=== PATIENT | female | born 1960 | race Caucasian/White ===

== ENCOUNTER → 2019-09-30 | Outpatient (CLI) | payer MEDICARE ==
--- NOTE | 2019-09-30 15:14 | CTL ---
EXAMINATION TYPE: CT Low Dose Lung DATE OF EXAM ORDERED: 09/30/2019 HISTORY: 59-year-old female with personal history of tobacco use. Lung cancer screening CT DLP: 98.[address] CTDI: 2.8 mGy Automated exposure control for dose reduction was used. SCREENING VISIT: Baseline COMPARISON: No priors TECHNIQUE: Low dose computed tomography scan was performed through the chest at 1 mm thick sections a nd reconstructed images in the coronal and sagittal plane. CT DIAGNOSTIC QUALITY: Satisfactory FINDINGS: Heart normal size without pericardial effusion. Scattered mild coronary vessel calcifications are pre sent. Aorta normal caliber with conventional arch vessel branching anatomy and mild apical scarring calcifi cations at the great vessel origins. No thoracic lymphadenopathy by CT size criteria. Mild centrilobular emphysema. A number of scattered 5 mm and smaller pulmonary nodules right upper lobe, some of which demonstrate a groundglass appearance, refer to axial image 53, 71, 75, 78, and 95. The 5 mm nodule on axial image 95 has a somewhat spiculated appearance. 7 mm triangular pulmonary nodule along the minor fissure likely intrafissural lymph node. Small subpleural lipoma anteriorly at the left mid to lower thorax. No consolidation or pleural effusion. Visualized upper abdomen shows cholecystectomy clips. Bones: [id number] degenerative disc disease mid to lower thoracic spine with small posterior di sc protrusions. IMPRESSION: 1. BI-RADS 4 X, suspicious - 5 mm and smaller right upper lobe pulmonary nodules, a number of which h ave a groundglass appearance. Given that a 5 mm pulmonary nodule in the right midlung has a slightly spiculated appearance, follow-up in 3 months is recommended. 2. A 7 mm intrafissural lymph node on the right is a benign finding. 3. COPD with mild emphysema. RECOMMENDATION: 1. Three-month follow-up low dose CT chest. 2. Smoking cessation. FOLLOW UP CT CHEST RECOMMENDATION: 3 month follow-up low-dose CT chest CT LUNG RAD: 4X, suspicious
== END | disposition home or self-care (01) ==
LOC: RADCTMAIN 13:14
PROVIDERS: ATTEND Family Medicine
DX: Z12.2 Encounter for screening for malignant neoplasm of respiratory organs (principal); J43.9 Emphysema, unspecified; R91.1 Solitary pulmonary nodule; R59.9 Enlarged lymph nodes, unspecified; F17.210 Nicotine dependence, cigarettes, uncomplicated

== ENCOUNTER → 2020-04-21 | Outpatient (CLI) | payer MEDICARE ==
--- NOTE | 2020-04-21 10:57 | CT ---
EXAMINATION TYPE: CT chest w con DATE OF EXAM: 04/21/2020 COMPARISON: Low-dose CT dated 09/30/2019 HISTORY: Follow up scan Per patient. CT DLP: 277 mGycm. Automated Exposure Control for Dose Reduction was Utilized. TECHNIQUE: CT scan of the thorax is performed following with IV Contrast, patient injected with 100 mL of Isovue 300. FINDINGS: LUNGS: Few of the previously seen groundglass sub-5 mm nodules have resolved in the interim suggestin g an infectious or inflammatory etiology of those nodules. However few nodules to persist such as on image 14, 18, and more solid nodules on image 23 and 22. The largest nodule on image 22 in the right upper lobe anteriorly measures 5 mm and is stable from the prior. Again this nodule does demonstrate a somewhat spiculated morphology. Mild background centrilobular emphysematous change. Subpleural 2 mm left basilar pulmonary nodule on image 49 is retrospectively unchanged. There is no pleural effusion or pneumothorax seen. Scattered a reas of subsegmental atelectasis seen. The tracheobronchial tree is patent. Decreased size of an intr afissural lymph node or scarring on image 31. Unchanged subpleural lipoma anteriorly at the left lowe r thorax. MEDIASTINUM: There are no greater than 1 cm hilar or mediastinal lymph nodes. Mild coronary artery ca lcifications. No pericardial effusion is seen. OTHER: No additional significant abnormality is seen. Gallbladder is surgically absent. Mild to mode rate degenerative disc disease of the spine. Mild degree hepatic steatosis. This limits evaluation fo r hepatic masses. The entirety of the liver is not imaged. Left adrenal gland nodule although is low density does not meet criteria for benign adenoma on this examination measuring an average Hounsfield unit of 42. This is 1 cm in size. IMPRESSION: 1. Stable size of the largest and most solid right pulmonary nodules measuring up to 5 mm in comparis on to the exam of 09/30/2019. Some nodules have resolved indicating an inflammatory or infectious etio logy of those nodules. The largest nodule does remain somewhat suspicious as there is a spiculated mo rphology. Follow-up CT thorax in 12 months is recommended to ensure long-term stability. 2. Left adrenal gland nodule that does not meet criteria for a benign adenoma at this time. Dynamic e nhanced MR abdomen is recommended for further characterization.
== END | disposition home or self-care (01) ==
LOC: RADCTMAIN 09:50
PROVIDERS: ATTEND Internal Medicine
DX: R91.8 Other nonspecific abnormal finding of lung field (principal)
CPT/HCPCS: 71260; Q9967

== ENCOUNTER → 2022-08-03 | Outpatient (CLI) | payer MEDICARE ==
--- NOTE | 2022-08-05 06:58 | MR ---
EXAMINATION TYPE: MR lumbar spine wo con DATE OF EXAM: 08/03/2022 COMPARISON: None HISTORY: Back pain leg weakness FINDINGS: Multiplanar multi echo imaging of the lumbar spine with no contrast. Lumbar vertebrae have normal alignment. There is mild disc space narrowing throughout the lumbar spin e. On the T2 and T1 images there is abnormal decreased signal in the L3 vertebral body. No significan t compression fracture. The lumbar nerve roots appear fairly normal. No significant neural foraminal stenosis. Sacroiliac joints are intact. No lumbar paraspinal mass. There is a Schmorl node in the sup erior endplate of L3. IMPRESSION: Decreased signal in the L3 vertebral body. This could relate to osteoblastic change. Correlation with plain x-ray recommended. No acute fracture seen. Mild multilevel spondylotic changes.
== END | disposition home or self-care (01) ==
LOC: RADMRIMAIN 09:03
PROVIDERS: ATTEND Family Medicine
DX: M54.50 Low back pain, unspecified (principal)
CPT/HCPCS: 72148

== ENCOUNTER → 2023-02-23 | Outpatient (CLI) | payer MEDICARE ==
--- NOTE | 2023-02-23 12:46 | BD ---
EXAMINATION TYPE: Axial Bone Density DATE OF EXAM: 02/23/2023 CLINICAL HISTORY: 63 years old Female. ICD-10 CODE: Z13.820 OSTEOPOROSIS SCREENING Height: 66.2 Weight: 165 FRAX RISK QUESTIONS: History of Fracture in Adulthood: yes Current Tobacco Use: yes RISK FACTORS HISTORY OF: hx of spinal compression fx L3 Spine Fracture: helcoplasty, for L3 When: 2022 Surgery to Spine helcoplasty, L3 Postmenopausal woman: yes, at about 52 Hyperparathyroidism: no Adrenal Insufficiency: no MEDICATIONS: Additional Medications: bp meds, vit d, pain meds Additional History: hypertension, recent spinal surg. EXAM MEASUREMENTS: Bone mineral densitometry was performed using the [employer] System. Bone mineral density about the R hip (g/cm2): 0.807 Bone mineral density about the L hip (g/cm2): 0.831 T Score values are as follows: -----R Neck: -1.2 -----L Neck: -1.0 -----R Total: -1.6 -----L Total: -1.4 Z Score values are as follows: -----R Neck: 0.0 -----L Neck: 0.2 -----R Total: -0.8 -----L Total: -0.6 Bone mineral density new to [facility] Bone mineral density about the R Wrist (g/cm2): 0.604 T Score values are as follows: -----Dist. R+U: -0.6 -----Prox. R+U: 0.5 -----Radius total: -0.9 Z Score values are as follows: -----Dist. R+U: 0.6 -----Prox. R+U: 1.7 -----Radius total: 0.2 Bone mineral density new to [facility] FRAX%s: The graph provided illustrates a 13.3% chance for a major osteoporotic fx and a 1.7% chance f or the hips probability for fx in 10 years time. IMPRESSION: Osteopenia (T Score between -2.5 and -1). There is slightly increased risk of fracture and the patient may be considered for treatment. Re-Screen 2-5 years. NOTE: T-SCORE=SD OF THE YOUNG ADULT MEAN.
== END | disposition home or self-care (01) ==
LOC: RADBDWWP 09:17
PROVIDERS: ATTEND Family Medicine
DX: Z13.820 Encounter for screening for osteoporosis (principal); M85.89 Other specified disorders of bone density and structure, multiple sites; I10 Essential (primary) hypertension; Z78.0 Asymptomatic menopausal state
CPT/HCPCS: 77080

== ENCOUNTER → 2023-07-28 | Outpatient (CLI) | payer MEDICARE ==
--- NOTE | 2023-07-28 13:34 | CTL ---
EXAMINATION TYPE: CT Low Dose Lung DATE OF EXAM ORDERED: 07/28/2023 HISTORY: 63-year-old female F17.210, current cigarette smoker for 20 pack year history. Lung cancer s creening SCREENING VISIT: 4 years from last screening COMPARISON: 04/21/2020 and 09/30/2019 TECHNIQUE: Low dose computed tomography scan was performed through the chest with coronal and sagitta l reconstructions. CT DIAGNOSTIC QUALITY: Satisfactory FINDINGS: Heart normal size without pericardial effusion. Aorta normal caliber with conventional arthrosis of branching anatomy. No thoracic lymphadenopathy by CT size criteria. There is a new 5 mm anterior right midlung pulmonary nodule, axial image 170. There is a new 1.1 cm pulmonary nodule anterior right upper lobe. Otherwise, scattered 5 mm and smaller pulmonary nodules remain unchanged from 2019 There is mild centrilobular emphysema. No consolidation or pleural effusion. Visualized upper abdomen shows cholecystectomy clips and a 1.6 cm lipid rich left adrenal adenoma. Mild degenerative disc disease lower thoracic spine. IMPRESSION: 1. LungRADS Category 4A (suspicious, 5-15% chance of malignancy). A new 1.1 cm anterior right upper l obe pulmonary nodule. Additionally, there is a new 5 mm anterior right midlung pulmonary nodule. Depe nding on clinical suspicion especially for the 1.1 cm nodule, either further PET/CT evaluation or 3 m onth follow-up low dose CT. 2. COPD with mild emphysema. Recommend smoking cessation. 3. Incidental 1.6 cm lipid rich left adrenal adenoma. CT LUNG RAD AND CT CHEST RECOMMENDATION: Lung-Rad 4A Suspicious: Follow-up 3 month LDCT or PET/CT may be used when there is a > 8 mm solid component. S Modifier (other clinically significant findings): None
== END | disposition home or self-care (01) ==
LOC: RADCTMAIN 09:09
PROVIDERS: ATTEND Family Medicine
DX: Z12.2 Encounter for screening for malignant neoplasm of respiratory organs (principal); J43.2 Centrilobular emphysema; F17.210 Nicotine dependence, cigarettes, uncomplicated; R91.1 Solitary pulmonary nodule; D35.02 Benign neoplasm of left adrenal gland
CPT/HCPCS: 71271

== ENCOUNTER → 2023-09-22 | Outpatient (CLI) | payer MEDICARE ==
--- NOTE | 2023-09-22 15:10 | PE ---
EXAMINATION TYPE: PET CT fusion skull to thigh DATE OF EXAM: 09/22/2023 COMPARISON: Low-dose lung screening CT July 28, 2023 HISTORY: Solitary pulmonary nodule, abnormal CT TECHNIQUE: Following the intravenous administration of 9.7 mCi of F-18 FDG, whole body images are pe rformed from the skull base to the midthigh. Images are reviewed on the computer in the coronal, axi al, and sagittal planes. Reconstructed rotating images are created on independent workstation and re viewed on the computer. A localization and attenuation correction CT is performed in conjunction wi th the PET scan. Blood glucose level equals 116. SCAN: Initial Scan FINDINGS: SKULL BASE AND NECK: No areas of abnormal hypermetabolic uptake. CHEST, MEDIASTINUM, AND HILAR REGION: Corresponding to recent CT there is persistent 12 x 11 mm anter ior right upper lobe nodule with abnormal hypermetabolic uptake, max SUV is 10.85 on axial image 89. Adjacent 5 mm nodule is seen medially axial image 91. No additional areas of abnormal hypermetabolic uptake are present in the thorax. ABDOMEN AND PELVIS: No hypermetabolic adrenal masses. Normal excretion is seen. OSSEOUS STRUCTURES: No areas of abnormal hypermetabolic uptake. OTHER CT: Moderate calcified plaque bilateral carotid bulb level is seen. Coronary artery calcificati on is noted. Cholecystectomy clips are seen. Moderate calcified plaque of the aorta extends into branch vessels. T here is mild height loss and vertebroplasty involving the L3 vertebra. IMPRESSION: 1. Persistent 1.2 cm anterior right upper lung pulmonary nodule with abnormal hypermetabolic uptake w orrisome for neoplasm. No suspicious thoracic adenopathy or evidence for metastatic disease.
== END | disposition home or self-care (01) ==
LOC: RADPETMAIN 09:53
PROVIDERS: ATTEND Internal Medicine Critical Care Medicine
DX: R91.1 Solitary pulmonary nodule (principal)
CPT/HCPCS: 78815; A9552

== ENCOUNTER 2023-09-28 06:35 | Inpatient (IN) | payer MEDICARE ==
[2023-09-27 10:10] VITALS: BMI 23.7
[2023-09-28] MEDS ORDERED: ONDANSETRON 4 MG/2 ML VIAL ONE (07:16)
[2023-09-28] MEDS: LACTATED RINGERS 1,000 ML IV SCH (07:32)
[2023-09-28] MEDS ORDERED: ONDANSETRON 4 MG/2 ML VIAL IVP ONE (07:32)
[2023-09-28] MEDS ORDERED: DEXAMETHASONE SOD PHOSPHATE 4 MG/ML 1 ML VIAL IVP ONE (07:33)
--- NOTE | 2023-09-28 07:51 | CT ---
EXAMINATION TYPE: CT chest wo con CT DLP: 495 mGycm, Automated exposure control for dose reduction was used. DATE OF EXAM: 09/28/2023 7:15 AM COMPARISON: Pet/CT 09/22/2023 CLINICAL INDICATION:Female, 63 years old with history of R91.1 Solitary Pulmonary Nodule; , pre bronc h TECHNIQUE: Multiple axial images were obtained through the chest. Sagittal and coronal reformats were created for review. Contrast used: mL of (None if empty) Oral contrast used: (None if empty) FINDINGS: LUNGS/ PLEURA: Redemonstration of spiculated right upper anterior lobe pulmonary nodule measuring up to 1.2 cm. AIRWAY: Patent and unremarkable. HEART: Size within normal limits. Mild atherosclerotic ossifications of the coronary arteries. MEDIASTINUM: No gross evidence of adenopathy. VASCULATURE: No aortic aneurysm. MUSCULOSKELETAL: No acute osseous abnormalities SOFT TISSUES/LYMPH NODES: Unremarkable. LOWER NECK: No significant findings. UPPER ABDOMEN: The gallbladder is surgically absent. Left adrenal lipid rich adenoma. IMPRESSION: 1. Redemonstration of right upper lobe spiculated pulmonary nodule which is FDG avid on prior PET/CT . 2. No FDG avid/enlarged mediastinal lymph nodes identified.
[2023-09-28] MEDS ORDERED: GLYCOPYRROLATE 0.2 MG/ML 2 ML VIAL ONE (08:20)
[2023-09-28] MEDS ORDERED: ROCURONIUM 10 MG/ML (5 ML VIAL) IV ONE (08:20)
[2023-09-28] MEDS ORDERED: PROPOFOL 10 MG/ML 20 ML VIAL IV ONE (08:20)
[2023-09-28] MEDS ORDERED: LIDOCAINE 1% INJ 10MG/ML (20 ML MDV) ONE (08:20)
[2023-09-28] MEDS ORDERED: MIDAZOLAM 2 MG/2 ML VIAL ONE (08:20)
[2023-09-28] MEDS ORDERED: NEOSTIGMINE 1 MG/ML 10 ML VIAL ONE (08:20)
[2023-09-28] MEDS ORDERED: fentaNYL (PF) 50 MCG/ML 2 ML AMP ONE (08:20)
[2023-09-28] MEDS ORDERED: LACTATED RINGERS 1,000 ML IV ONE (09:00)
--- NOTE | 2023-09-28 09:41 | P.PCN ---
Date of Procedure: 09/28/23 Operative Findings: Date of Procedure: 08/30/23 Operative Findings: Preoperative Diagnosis: Right upper lobe nodule Postoperative Diagnosis: Right upper lobe nodule No pathologic mediastinal lymphadenopathy on endobronchial ultrasound. Procedure(s) Performed: Flexible bronchoscopy Robotic-assisted bronchoscopy and addition to radial ultrasound evaluation of the pulmonary nodule Robotic-assisted transbronchial needle aspirate, transbronchial biopsies of the right upper lobe nodule in addition to a bronchioloalveolar lavage Endobronchial ultrasound for mediastinal lymph node evaluation Anesthesia: GETA Surgeon: Jose Luis Oconnor Estimated Blood Loss (ml): 0 Pathology: other Condition: stable Disposition: same day Operative Findings: A physical exam was performed. Informed consent was obtained from the patient after explaining all the risks (pneumothorax, life threatening bleeding, infection and adverse effects due to medications), benefits and alternatives to the procedure which the patient appeared to understand and so stated. The patient was connected to the monitoring devices. General anesthesia was induced and the patient was intubated by anesthesia. A final timeout was performed and the procedure confirmed by the attending staff bronchoscopist. The bronchoscope was inserted and the airway examined. The flexible bronchoscope was removed and the robotic bronchoscope was inserted. Registration was completed. I next guided the robotic bronchoscope using the navigation system into the right upper lobe anterior segment. Once in proper position, the bronchoscope was frozen. The radial EBUS probe was placed through the bronchoscope and confirmed abnormal u/s images vs normal lung. A needle was placed through the working channel and under fluoroscopic guidance, we sampled the area thought to have the mass twice. We then used a cloud biopsy pattern with ultrasound confirmation for 2 additional passes with the needle. U/S evaluation was then used to reconfirm location. Forceps were next introduced through working channel and extended the appropriate distance and 3 transbronchial biopsies were performed using fluoroscopic guidance. The u/s pro be was then reinserted to confirm location. When confirmed this process was repeated for a total of 8-10 transbronchial biopsies. After reassessment with EBUS, a brush was placed through the extendable working channel for 1 pass with fluoroscopic guidance. U/S evaluation was then used to confirm location. 40ml of saline was then instilled into the area of the lesion. The robotic bronchoscope was removed and the airway inspected with a flexible bronchoscope and 10 ml of effluent from the BAL was collected. The aspirate was bloody and ultimately declotted and based on that, the sample was discarded. Flex. bronchoscope was inserted and regular suctioning was done. At the completion of the procedure, no residual secretions or bloody material within the airway. The bronchoscope was removed. The patient was extubated. Endobronchial ultrasound was done with mediastinal lymph node evaluation. We did send mediastinal stations were inspected and there was no evidence of any pathologic recent lymphadenopathy and all of the lymph nodes are less than 5 mm in size. No biopsies were performed. FINDINGS: 1.The airways appeared normal 2 Successful navigation, ultrasonographic identification, and biopsies of right upper lobe pulmonary nodule 3.The the radial ultrasound view was (Concentric/Eccentric)}. RECOMMENDATIONS: Await pathology and cytology results The referring physician will be alerted to the results when available. The patient was advised to follow up with the referring physician with the biopsy results Patient will be called with results.
[2023-09-28] MEDS ORDERED: ALBUTEROL NEBULIZED 2.5 MG/3 ML INHALATION ONE ×2 (09:59→12:04)
--- NOTE | 2023-09-28 10:28 | FL ---
Intraoperative/procedural fluoroscopic services were provided for bronchoscopy with right upper lobe biopsy. Total fluoroscopy time is 3.57 minutes with a total of 4 submitted images to PACS. Total DAP 6.7926 Gycm2. Please see the operative note for further details.
--- NOTE | 2023-09-28 10:44 | XR ---
EXAMINATION TYPE: XR chest 1V DATE OF EXAM: 09/28/2023 10:23 AM CLINICAL INDICATION:Female, 63 years old with history of post biopsy; [facility] COMPARISON: Chest radiographs from 01/12/2023. TECHNIQUE: XR chest 1V Frontal view of the chest. FINDINGS: Lungs/Pleura: There is a moderate right pneumothorax with atelectasis around pulmonary hilum. There i s no evidence of pleural effusion, focal consolidation, or left pneumothorax. Pulmonary vascularity: Unremarkable. Heart/mediastinum: Cardiomediastinal silhouette is unremarkable. Musculoskeletal: No acute osseous pathology. Other findings: None IMPRESSION: Moderate right pneumothorax atelectasis near the pulmonary hilum. Findings communicated to Dr. Jose Luis Oconnor MD on 09/28/2023 10:[address] Kedar Knox.
[2023-09-28] MEDS ORDERED: HYDROmorphone 0.5 MG/0.5 ML SYRINGE IVP ONE (11:33)
--- NOTE | 2023-09-28 12:20 | XR ---
EXAMINATION TYPE: XR chest 1V portable DATE OF EXAM: 09/28/2023 12:03 PM CLINICAL INDICATION:Female, 63 years old with history of pleurx placement; COMPARISON: Chest radiographs from 09/28/2023. TECHNIQUE: XR chest 1V portable Frontal view of the chest. FINDINGS: Lungs/Pleura: There is no evidence of pleural effusion, focal consolidation, or pneumothorax. Pulmonary vascularity: Unremarkable. Heart/mediastinum: Cardiomediastinal silhouette is unremarkable. Musculoskeletal: No acute osseous pathology. Other findings: None Lines/Tubes: Right thoracotomy tube is present without evidence of pneumothorax. IMPRESSION: Interval placement of right thoracotomy tube with no without significant pneumothorax remaining.
[2023-09-28] MEDS ORDERED: HYDROcodone/APAP 10-325MG 1 EACH TAB ONE (13:37)
[2023-09-28] MEDS ORDERED: HYDROcodone/APAP 10-325MG 1 EACH TAB PO ONE (13:40)
--- NOTE | 2023-09-28 16:55 | P.PCN ---
Date of Procedure: 09/28/23 Preoperative Diagnosis: iatrogenic pneumothorax, right-sided, 25% Postoperative Diagnosis: iatrogenic pneumothorax, right-sided Procedure(s) Performed: Thoracent, #13 Anesthesia: local Surgeon: Jose Luis Oconnor Estimated Blood Loss (ml): 0 Pathology: other Condition: stable Disposition: floor Operative Findings: this procedure was done in the recovery room. The patient underwent a bronchoscopy and she sustained a 20-25% pneumothorax on the right side. She was on 2 L of oxygen by nasal cannula. This is worsening to the patient and a timeout was obtained. Consent was also obtained. The right anterior chest area was cleaned using chlorhexidine. Following that , the subcutaneous area was infiltrated with 1% lidocaine at the level of the second and the third intercostal space on the right just lateral to the sternal notch. A scalpel was used to make a small incision and following that, and #13 thoravent was successfully inserted into the right chest. The trocar was removed. A three-way valve was attached and using a 60 mL syringe, the right- sided pneumothorax was evacuated. The subsequent chest x-ray that was done following the procedure showed adequate positioning of the right-sided she'll and the pneumothorax was essentially resolved. No further suctioning was applied. No bleeding. Patient tolerated procedure well. Oxygenation improved. Pulse ox is currently above 90% on room air oxygen.
[2023-09-28] MEDS: HYDROcodone/APAP 10-325MG 1 EACH TAB PO PRN ×2 (16:59→22:59)
[2023-09-28] MEDS: HYDROmorphone 1 MG/ML 1 ML SYRINGE IVP PRN (23:46)
--- NOTE | 2023-09-28 23:54 | XR ---
EXAM: XR Chest, 1 View CLINICAL HISTORY: ITS.REASON XR Reason: severe pain/ thoravent TECHNIQUE: Frontal view of the chest. COMPARISON: Chest [place] [id number] FINDINGS: Lungs: Atelectasis within the right midlung and lingula. Pleural space: No radiographically evident pneumothorax. Heart: Unremarkable. No cardiomegaly. Other findings: Right-sided Thora vent in place. IMPRESSION: 1. No radiographically evident pneumothorax. 2. Right-sided Thora vent in place. 3. Atelectasis within the right midlung and lingula.
[2023-09-29 00:01] LABS: Glucose,Whole Blood 130 mg/dL (70-110)
[2023-09-29] MEDS ORDERED: NALOXONE 0.4 MG/ML 1 ML VIAL IV PRN (00:17)
[2023-09-29] MEDS: LACTATED RINGERS 1,000 ML IV SCH (00:58)
[2023-09-29] MEDS: HYDROmorphone 1 MG/ML 1 ML SYRINGE IVP PRN ×3 (01:59→19:38)
[2023-09-29] MEDS ORDERED: SODIUM CHLORIDE 0.9% 1,000 ML IV ONE (04:15)
--- NOTE | 2023-09-29 07:44 | XR ---
EXAMINATION TYPE: XR chest 1V DATE OF EXAM: 09/29/2023 COMPARISON: 09/28/2023 INDICATION: Tube placement TECHNIQUE: Single frontal view of the chest is obtained. FINDINGS: The heart size is normal. The pulmonary vasculature is normal. There is mild infiltrate along the right base. Correlate for atelectasis or developing pneumonia. Th ere is stable subsegmental infiltrate at the left base may be related to atelectasis. Right side catheter remains present. No pneumothorax is evident. IMPRESSION: 1. Developing atelectasis or infiltrate at the right lung base. 2. Some mild subsegmental atelectasis or infiltrate is at the left base, stable from comparison. 3. Catheter on the right, no pneumothorax is evident.
[2023-09-29] MEDS: MULTIVITAMINS, THERA 1 EACH TAB PO SCH (08:08)
[2023-09-29] MEDS: ATORVASTATIN 40 MG TAB PO SCH (08:08)
[2023-09-29] MEDS: CHOLECALCIFEROL 25 MCG (1000 IU) TABLET PO SCH (08:08)
[2023-09-29] MEDS: DULoxetine HCL 60 MG CAPSULE.DR PO SCH (08:08)
[2023-09-29 08:46] LABS: BUN/Creat Ratio 23.14 Ratio (12.00-20.00); Blood Urea Nitrogen 16.2 mg/dL (9.0-27.0); Calcium 8.6 mg/dL (8.7-10.3); Carbon Dioxide 27.1 mmol/L (21.6-31.8); Chloride 105 mmol/L (96-109); Glucose 122 mg/dL (70-110); Potassium 4.1 mmol/L (3.5-5.5); Sodium 141 mmol/L (135-145)
[2023-09-29 08:50] LABS: Basophils # (A) 0.04 X 10*3/uL (0.00-0.10); Basophils % (A) 0.3 %; Eosinophils # (A) 0.02 X 10*3/uL (0.04-0.35); Eosinophils % (A) 0.1 %; HCT 31.2 % (37.2-46.3); HGB 9.8 d/dL (12.0-15.0); Lymphocytes # (A) 2.64 X 10*3/uL (0.90-5.00); Lymphocytes % (A) 16.8 %; MCH 29.6 pg (27.0-32.0); MCHC 31.4 d/dL (32.0-37.0); MCV 94.3 FL (80.0-97.0); Mean Platelet Volume 10.1 FL (9.5-12.2); Monocytes # (A) 0.84 X 10*3/uL (0.20-1.00); Monocytes % (A) 5.4 %; NRBC Per 100 WBC 0 X 10*3/uL (0.00-0.01); Neutrophils # (A) 12.09 X 10*3/uL (1.80-7.70); Platelet Count 273 X 10*3/uL (140-440); RBC 3.31 X 10*6/uL (4.10-5.20); RDW 13.8 % (11.5-14.5)
[2023-09-29] MEDS ORDERED: NON FORMULARY DRUG (Ubidecarenone [Co Q-10] 400 MG Capsule) PO SCH (09:00)
[2023-09-29] MEDS: HYDROcodone/APAP 10-325MG 1 EACH TAB PO PRN ×3 (09:09→23:02)
[2023-09-29] MEDS: hydroCHLOROthiazide 25 MG TAB PO SCH (09:22)
--- NOTE | 2023-09-29 09:36 | XR ---
EXAMINATION TYPE: XR chest 1V portable DATE OF EXAM: 09/29/2023 COMPARISON: 09/29/2023 earlier exam INDICATION: Thorax TECHNIQUE: Single frontal view of the chest is obtained. FINDINGS: The heart size is normal. The pulmonary vasculature is normal. Atelectasis at the right base has significantly improved over the interval. Subsegmental atelectasis at the left base appears similar. Chest tube remains in position. However, there is interval development of a small right apical pneumo thorax. Continued monitoring is recommended. IMPRESSION: 1. Interval development of a small right apical pneumothorax. Chest tube remains in position. 2. Improving right basilar atelectasis.
--- NOTE | 2023-09-29 10:39 | P.CNPUL ---
History of Present Illness Consult date: 09/29/23 Requesting physician: Raza Nielsen Reason for consult: pneumothorax Chief complaint: pneumothorax,post bronchoscopy and biopsy History of present illness: this is a 63-year-old female, known history of mild COPD, previous laryngectomy for laryngeal cancer, patient has been a chronic smoker since age 13. Continues to smoke on the average of half pack per day. Patient was recently seen by Dr. Oconnor in the office for abnormal CT of the chest, abnormal PET scan, both showing a 1.2 cm right upper lobe pulmonary nodule with abnormal metabolic activity SUV of 10. Patient underwent robotic bronchoscopy and biopsy of her solitary lung nodule, postoperatively the patient developed a 25% right-sided pneumothorax. thoraventwas placed by Dr. Oconnor in the recovery room, patient was admitted to the floor, however last night the patient developed severe right-sided chest pain, it was 10/10. I was notified by the nurse about the pain, initially I recommended a chest x-ray stat, I also recommended transferred to the ICU. However the chest x-ray came back showing no evidence of pneumo thorax, and the chest tube was in the proper position. Hence I recommended to cancel the transferred to the ICU. Nonetheless the patient was transferred anyway, and I'm seeing her today in the ICU. Patient is doing well, not in any distress, chest x-ray showed complete resolution of her right-sided pneumothorax, hence am planning to place an occlusive On the chest tube/thoravent, repeat the chest x-ray in the next 2 hours, and if no evidence of pneumothorax we could potentially discharge the patient home today and she will have follow-up with Dr. Oconnor on outpatient basis for follow-up on her biopsies and tissue diagnosis.patient is doing well presently, does not seem to be in any distress, she is on 2 L nasal cannula.O2 saturation is 91% on room air Review of Systems constitutional: Negative HEENT: Negative except for previous history of laryngectomy Pulmonary: No cough no wheezing no shortness of breath no chest pain. Cardiac: Negative GI: Negative Genitourinary: Negative Musculoskeletal: Negative Psychiatric: Negative Endocrine: Negative Skin: Negative Neurologic: Negative Past Medical History Past Medical History: Cancer, COPD, Hearing Disorder / Deafness, Hyperlipidemia, Hypertension Additional Past Medical History / Comment(s): Back pain since early 2000's. Degenerative discs, leg pain with it. Had recent bone scan and ct scan, hx skin cancer, has had eye injections for bleeding behind retina of left eye, pt states her COPD is "borderline." Hard of hearing in left ear. found nodule in lung after pet scan oct History of Any Multi-Drug Resistant Organisms: None Reported Past Surgical History: Appendectomy, Section, Ear Surgery, Orthopedic Surgery Additional Past Surgical History / Comment(s): Laparoscopies for infertility, skin cancer on leg removed, brain aneurysm with coiling, right ring finger trigger finger release. Past Anesthesia/Blood Transfusion Reactions: No Reported Reaction Additional Past Anesthesia/Blood Transfusion Reaction / Comment(s): no blood transfusion Past Psychological History: No Psychological Hx Reported Smoking Status: Former smoker Past Alcohol Use History: Rare Additional Past Alcohol Use History / Comment(s): Smoked for approximately 50 years, 1ppd at highest amount, now 3-4 cigarettes per day. quit 08/27/2023 Past Drug Use History: None Reported - Past Family History Father Family Medical History: Cancer Additional Family Medical History / Comment(s): Brain tumor. Mother Family Medical History: Cancer Additional Family Medical History / Comment(s): Breast, neck, vulva cancer. Sister(s) Family Medical History: Cancer Additional Family Medical History / Comment(s): Breast cancer, one sister, other sister brain tumor. Brother(s) Family Medical History: Cancer Additional Family Medical History / Comment(s): "Full of cancer." Medications and Allergies Home Medications Medication Instructions Recorded Confirmed Type Cholecalciferol [Vitamin D3 (25 50 mcg PO DAILY 01/19/23 09/27/23 History Mcg = 1000 Iu)] HYDROcodone/APAP 10-325MG [[place] 1 tab PO Q6H PRN 01/19/23 09/27/23 History 10-325] Multivitamins, Thera [Multivitamin 1 tab PO DAILY 01/19/23 09/27/23 History (formulary)] Ubidecarenone [Co Q-10] 400 mg PO DAILY 01/19/23 09/27/23 History hydroCHLOROthiazide 25 mg PO DAILY 01/19/23 09/27/23 History Aspirin [[place] Aspirin EC] 81 mg PO DAILY 09/27/23 09/27/23 History Atorvastatin [Lipitor] 40 mg PO DAILY 09/27/23 09/27/23 History DULoxetine HCL [Cymbalta] 60 mg PO DAILY 09/27/23 09/27/23 History Allergies Allergy/AdvReac Type Severity Reaction Status Date / Time No Known Allergies Allergy Verified 09/28/23 07:18 Physical Exam Vitals: Vital Signs Temp Pulse Pulse Resp BP Pulse Ox FiO2 09/29/23 08:00 98.7 F 60 12 109/54 95 09/29/23 02:00 98.5 F 13 104/52 93 L 09/29/23 00:30 98.3 F 50 L 13 120/58 93 L 09/28/23 19:34 98.5 F 56 L 16 121/61 89 L 09/28/23 16:25 94 L 21 09/28/23 14:44 98.3 F 76 16 98/63 93 L 09/28/23 13:42 57 L 16 91 L 09/28/23 13:01 58 L 16 108/61 95 09/28/23 12:46 51 L 18 119/75 96 09/28/23 12:15 64 20 124/56 95 09/28/23 12:00 56 L 22 115/73 100 09/28/23 11:45 56 L 17 117/56 09/28/23 11:30 64 18 114/57 09/28/23 11:15 68 18 105/51 09/28/23 11:00 84 18 121/58 91 L 09/28/23 10:45 75 17 114/56 93 L 09/28/23 10:30 54 L 20 117/54 99 Intake and Output 09/28/23 09/29/23 09/29/23 22:59 06:59 14:59 Intake Total 1119 Output Total 250 Balance 869 Intake: IV 1119 Lactated Ringers 1,000 ml 120 @ 20 mls/hr IV .Q24H [facility] Rx#:[id number] Sodium Chloride 0.9% 1, 999 000 ml @ 999 mls/hr IV . Q1H1M [facility] Rx#:[id number] Output: Urine 250 Other: # Voids 1 1 Weight 82.2 kg Physical Exam: Revealed 63-year-old female in no distress Head: Atraumatic normocephalic. HEENT:[Neck is supple.] [No neck masses.] [No thyromegaly.] [No JVD.] Chest: [Clear throughout, no crackles, no rhonchi, no wheezes.]right-sided chest tube/thoravent noted Cardiac Exam: [Normal S1 and S2, no S3 gallop, no murmur.] Abdomen: [Soft, nontender, no megaly, no rebound, no guarding, normal bowel sounds.] Extremities: [No clubbing, no edema, no cyanosis.] Neurological Exam: [No focal neurologic deficit.], alert oriented 3. Psychiatric: Normal mood, affect and normal mental status examination. Skin: No rashes. Results - Laboratory Findings CBC and BMP: 09/29/23 04:51 09/29/23 04:51 Abnormal lab findings: Abnormal Labs 09/28/23 09/29/23 09/29/23 23:59 04:51 04:51 WBC 15.70 H RBC 3.31 L Hgb 9.8 L Hct 31.2 L MCHC 31.4 L Neutrophils # 12.09 H Eosinophils # 0.02 L BUN/Creatinine Ratio 23.14 H Glucose 122 H POC Glucose (mg/dL) 130 H Calcium 8.6 L - Diagnostic Findings Chest x-ray: image reviewed (chest x-ray as noted in HPI follow-up chest x-ray is pending) Assessment and Plan Assessment: impression: iatrogenic right-sided pneumothorax Solitary lung nodule, status post robotic bronchoscopy and transbronchial biopsy mild COPD History of laryngectomy for laryngeal cancer Tobacco dependence syndrome Recommendation: We will apply occlusive On the thoravent Repeat chest x-ray in 2 hours If the chest x-ray showed no expansion of pneumothorax will remove the chest tube, and possibly discharge the patient home today Patient to follow-up with Dr. Oconnor postdischarge. Will reassess in the next 2 hours. In the meantime resume home meds. Time with Patient: Greater than 30
--- NOTE | 2023-09-29 11:19 | XR ---
EXAMINATION TYPE: XR chest 1V portable DATE OF EXAM: 09/29/2023 COMPARISON: 09/29/2023 earlier exams INDICATION: Pneumothorax TECHNIQUE: Single frontal view of the chest is obtained. FINDINGS: The heart size is normal. The pulmonary vasculature is normal. Previous bibasilar infiltrates have largely resolved. There is persistence of a stable appearing right apical pneumothorax. Right-sided chest tube remains in position. IMPRESSION: 1. Stable appearance right apical pneumothorax from earlier exam. 2. Resolution of previous bibasilar atelectasis
[2023-09-29] MEDS ORDERED: ALPRAZolam 0.25 MG TAB PO PRN (14:09)
[2023-09-29] MEDS: NICOTINE 21MG/24HR PATCH TRANSDERM SCH (14:38)
--- NOTE | 2023-09-29 14:57 | P.CONS ---
History of Present Illness - Reason for Consult Consult date: 09/29/23 Medical management anxiety Requesting physician: Jose Luis Oconnor - Chief Complaint Pneumothorax status post bronchoscopy with biopsy - History of Present Illness This is 63-year-old female with past medical history significant for nicotine dependence, laryngeal cancer with previous laryngectomy, recent abnormal chest CT/abnormal PET scan reporting a 1.2 cm the right upper lobe pulmonary nodule ,COPD , hypertension, hyperlipidemia ,chronic back pain admitted with pneumo thorax status post bronchoscopy with biopsy. Yesterday she underwent robotic bronchoscopy with biopsy of lung nodule, developed a right-sided pneumothorax requiring thoravent placement admitted inpatient. Last night developed right- sided chest and right shoulder blade pain unrelieved by pain management. Patient was transferred to ICU, stat chest x-ray did not reported right sided Thoravent in place and no evidence of pneumothorax. This morning significant improvement. Sitting up in chair, pain controlled, calm ,maintaining O2 sats in the 90s on 2 L nasal cannula. Reports she is belching and burping. Exertional hypoxia, O2 decreased to 84% on room air while getting up in chair. Incentive spirometer up to 1500 Chest x-ray this morning reporting resolution of pneumothorax and thoravent clamped. Repeat chest x-ray pending. Afebrile, WBC 15.7. Hemoglobin 9.8, platelets 273, electrolytes within normal limits, renal function stable. Blood sugars controlled. Review of Systems Constitutional: Denied any chills or sweats Cardio vascular: denied any chest pain, palpitations Gastrointestinal denied any nausea vomiting Pulmonary: Denied any shortness of breath cough, except with exertion. Neurologic denied any new focal deficits ROS Statement: Those systems with pertinent positive or pertinent negative responses have been documented in the HPI. ROS Other: All systems not noted in ROS Statement are negative. Past Medical History Past Medical History: Cancer, COPD, Hearing Disorder / Deafness, Hyperlipidemia, Hypertension Additional Past Medical History / Comment(s): Back pain since early . Degenerative discs, leg pain with it. Had recent bone scan and ct scan, hx skin cancer, has had eye injections for bleeding behind retina of left eye, pt states her COPD is "borderline." Hard of hearing in left ear. found nodule in lung after pet scan sep 22 History of Any Multi-Drug Resistant Organisms: None Reported Past Surgical History: Appendectomy, Section, Ear Surgery, Orthopedic Surgery Additional Past Surgical History / Comment(s): Laparoscopies for infertility, skin cancer on leg removed, brain aneurysm with coiling, right ring finger trigger finger release. Past Anesthesia/Blood Transfusion Reactions: No Reported Reaction Additional Past Anesthesia/Blood Transfusion Reaction / Comm: no blood transfusion Past Psychological History: No Psychological Hx Reported Smoking Status: Former smoker Past Alcohol Use History: Rare Additional Past Alcohol Use History / Comment(s): Smoked for approximately 50 years, 1ppd at highest amount, now 3-4 cigarettes per day. quit 08/27/2023 Past Drug Use History: None Reported - Past Family History Father Family Medical History: Cancer Additional Family Medical History / Comment(s): Brain tumor. Mother Family Medical History: Cancer Additional Family Medical History / Comment(s): Breast, neck, vulva cancer. Sister(s) Family Medical History: Cancer Additional Family Medical History / Comment(s): Breast cancer, one sister, other sister brain tumor. Brother(s) Family Medical History: Cancer Additional Family Medical History / Comment(s): "Full of cancer." Medications and Allergies Home Medications Medication Instructions Recorded Confirmed Type Cholecalciferol [Vitamin D3 (25 50 mcg PO DAILY 01/19/23 09/27/23 History Mcg = 1000 Iu)] HYDROcodone/APAP 10-325MG [[place] 1 tab PO Q6H PRN 01/19/23 09/27/23 History 10-325] Multivitamins, Thera [Multivitamin 1 tab PO DAILY 01/19/23 09/27/23 History (formulary)] Ubidecarenone [Co Q-10] 400 mg PO DAILY 01/19/23 09/27/23 History hydroCHLOROthiazide 25 mg PO DAILY 01/19/23 09/27/23 History Aspirin [[place] Aspirin EC] 81 mg PO DAILY 09/27/23 09/27/23 History Atorvastatin [Lipitor] 40 mg PO DAILY 09/27/23 09/27/23 History DULoxetine HCL [Cymbalta] 60 mg PO DAILY 09/27/23 09/27/23 History Allergies Allergy/AdvReac Type Severity Reaction Status Date / Time No Known Allergies Allergy Verified 09/28/23 07:18 Physical Exam Vitals: Vital Signs Temp Pulse Pulse Resp BP Pulse Ox FiO2 09/29/23 08:00 98.7 F 60 12 109/54 95 09/29/23 02:00 98.5 F 13 104/52 93 L 09/29/23 00:30 98.3 F 50 L 13 120/58 93 L 09/28/23 19:34 98.5 F 56 L 16 121/61 89 L 09/28/23 16:25 94 L 21 09/28/23 14:44 98.3 F 76 16 98/63 93 L 09/28/23 13:42 57 L 16 91 L 09/28/23 13:01 58 L 16 108/61 95 09/28/23 12:46 51 L 18 119/75 96 09/28/23 12:15 64 20 124/56 95 09/28/23 12:00 56 L 22 115/73 100 09/28/23 11:45 56 L 17 117/56 09/28/23 11:30 64 18 114/57 Intake and Output 09/28/23 09/29/23 09/29/23 22:59 06:59 14:59 Intake Total 1119 Output Total 250 Balance 869 Intake: IV 1119 Lactated Ringers 1,000 ml 120 @ 20 mls/hr IV .Q24H [facility] Rx#:[id number] Sodium Chloride 0.9% 1, 999 000 ml @ 999 mls/hr IV . Q1H1M [facility] Rx#:[id number] Output: Urine 250 Other: # Voids 1 1 Weight 82.2 kg PHYSICAL EXAM: VITAL SIGNS: As above GENERAL: Alert and oriented 3, Sitting up in a chair, no acute distress, conversing without dyspnea HEENT: Normocephalic, Conjunctivae normal. eyes normal. NECK: Supple, No JVD. No thyroid enlargement. No LNs CARDIOVASCULAR: S1, S2 regular. No murmur RESPIRATION: Unlabored, equal air entry, Breath sounds diminished in the bases. No rhonchi or crackles. No bronchial breathing. ABDOMEN: Soft, nontender . No guarding. no masses palpable. No ascites, No hepatosplenomegaly.Bowel sounds heard. LEGS: No edema. no swelling, no clubbing, no cyanosis. PSYCHIATRY: Alert and oriented X3, mood and affect normal. NERVOUS SYSTEM: Cranial N 2-12 grossly normal. No focal deficits. Strength and sensation grossly intact. Skin: Warm and dry, no rash. Results CBC & Chem 7: 09/29/23 04:51 11/03/23 04:51 Labs: Abnormal Lab Results - Last 24 Hours (Table) 09/28/23 09/29/23 09/29/23 Range/Units 23:59 04:51 04:51 WBC 15.70 H (4.50-10.00) X 10*3/uL RBC 3.31 L (4.10-5.20) X 10*6/uL Hgb 9.8 L (12.0-15.0) d/dL Hct 31.2 L (37.2-46.3) % MCHC 31.4 L (32.0-37.0) d/dL Neutrophils # 12.09 H (1.80-7.70) X 10*3/uL Eosinophils # 0.02 L (0.04-0.35) X 10*3/uL BUN/Creatinine Ratio 23.14 H (12.00-20.00) Ratio Glucose 122 H (70-110) mg/dL POC Glucose (mg/dL) 130 H (70-110) mg/dL Calcium 8.6 L (8.7-10.3) mg/dL Assessment and Plan Assessment: Pneumothorax status post robotic bronchoscopy with biopsy of right lung nodule, Acute acute hypoxic respiratory failure secondary to the above History of laryngeal cancer, laryngectomy COPD Nicotine dependence Anxiety Plan: Continue on current medication regime ,monitoring and symptomatic t reatment. Thoravent management as per mechanical field engineer. Potential discharge home today pending repeat chest x-ray results. Xanax ordered for anxiety. Aggressive pulmonary toileting with incentive spirometer reinforced. Smoking cessation reinforced. Thank you for the consult. The impression and plan of care has been dictated as directed. : I performed a history and examination of this patient, discussed the same with the dictator. I agree with the dictator's note ,documented as a scribe. Any additional findings or plans will be noted.
--- NOTE | 2023-09-29 19:53 | XR ---
EXAMINATION TYPE: XR chest 1V portable DATE OF EXAM: 09/29/2023 7:44 PM CLINICAL INDICATION:Female, 63 years old with history of blood from thoravent; [facility] COMPARISON: Chest radiographs from 09/29/2023 TECHNIQUE: XR chest 1V portable Frontal view of the chest. FINDINGS: Lungs/Pleura: There is no evidence of pleural effusion, focal consolidation, or pneumothorax. Pulmonary vascularity: Unremarkable. Heart/mediastinum: Cardiomediastinal silhouette is unremarkable. Musculoskeletal: No acute osseous pathology. Other findings: None Lines/Tubes: Right thoracotomy tube is present without evidence of pneumothorax. IMPRESSION: Right thoracotomy tube without evidence of pneumothorax.
[2023-09-29] MEDS ORDERED: ONDANSETRON 4 MG/2 ML VIAL IVP PRN (20:03)
[2023-09-30] MEDS: HYDROmorphone 1 MG/ML 1 ML SYRINGE IVP PRN ×2 (00:13→05:12)
[2023-09-30] MEDS: LACTATED RINGERS 1,000 ML IV SCH (05:12)
[2023-09-30 06:10] LABS: Basophils % (A) 0 %; Eosinophils # (A) 0.3 k/uL (0-0.7); Eosinophils % (A) 3 %; HCT 31.7 % (34.0-46.0); HGB 10.4 gm/dL (11.4-16.0); Lymphocytes # (A) 2.2 k/uL (1.0-4.8); Lymphocytes % (A) 25 %; MCH 30.5 pg (25.0-35.0); MCV 92.6 fL (80.0-100.0); Mean Platelet Volume 7.9; Monocytes # (A) 0.4 k/uL (0-1.0); Monocytes % (A) 5 %; Neutrophils # (A) 5.9 k/uL (1.3-7.7); Neutrophils % (A) 66 %; Platelet Count 259 k/uL (150-450); RBC 3.42 m/uL (3.80-5.40); RDW 13.8 % (11.5-15.5); WBC 8.9 k/uL (3.8-10.6)
[2023-09-30 08:19] VITALS: BP 128/68; RESP 16; TEMP 98
[2023-09-30] MEDS: ATORVASTATIN 40 MG TAB PO SCH (08:30)
[2023-09-30] MEDS: MULTIVITAMINS, THERA 1 EACH TAB PO SCH (08:30)
[2023-09-30] MEDS: DULoxetine HCL 60 MG CAPSULE.DR PO SCH (08:30)
[2023-09-30] MEDS: CHOLECALCIFEROL 25 MCG (1000 IU) TABLET PO SCH (08:30)
[2023-09-30] MEDS: hydroCHLOROthiazide 25 MG TAB PO SCH (08:31)
[2023-09-30] MEDS: NICOTINE 21MG/24HR PATCH TRANSDERM SCH (08:31)
--- NOTE | 2023-09-30 12:04 | P.PN ---
Subjective Progress Note Date: 09/30/23 this is a 63-year-old female, known history of mild COPD, previous laryngectomy for laryngeal cancer, patient has been a chronic smoker since age 13. Continues to smoke on the average of half pack per day. Patient was recently seen by Dr. Oconnor in the office for abnormal CT of the chest, abnormal PET scan, both showing a 1.2 cm right upper lobe pulmonary nodule with abnormal metabolic activity SUV of 10. Patient underwent robotic bronchoscopy and biopsy of her solitary lung nodule, postoperatively the patient developed a 25% right-sided pneumothorax. thoraventwas placed by Dr. Oconnor in the recovery room, patient was admitted to the floor, however last night the patient developed severe ri ght-sided chest pain, it was 10/10. I was notified by the nurse about the pain, initially I recommended a chest x-ray stat, I also recommended transferred to the ICU. However the chest x-ray came back showing no evidence of pneumothorax, and the chest tube was in the proper position. Hence I recommended to cancel the transferred to the ICU. Nonetheless the patient was transferred anyway, and I'm seeing her today in the ICU. Patient is doing well, not in any distress, chest x-ray showed complete resolution of her right-sided pneumothorax, hence am planning to place an occlusive On the chest tube/thoravent, repeat the chest x- ray in the next 2 hours, and if no evidence of pneumothorax we could potentially discharge the patient home today and she will have follow-up with Dr. Oconnor on outpatient basis for follow-up on her biopsies and tissue diagnosis.patient is doing well presently, does not seem to be in any distress, she is on 2 L nasal cannula.O2 saturation is 91% on room air The patient is seen today 09/30/2023 in follow-up on the regular medical floor. She is currently sitting up in a chair at the bedside. Awake and alert in no acute distress. Denies any worsening shortness of breath, cough or congestion. Maintaining O2 saturations in the 90s on room air. Right sided Thora-Vent remains in place to Pleur-evac and -20 cm wall suction. No leak present. Capped this a.m. Follow-up chest x-ray pending. Bronchoscopy wash cultures are pending. Pathology pending. White count 8.9. Hemoglobin 10.4. Platelets 259. Working well with the incentive spirometer. NicoDerm patch in place. Objective - Vital Signs Vital signs: Vital Signs Temp 98.0 F 09/30/23 07:20 Pulse 56 L 09/30/23 08:00 Resp 16 09/30/23 08:00 BP 128/68 09/30/23 07:20 Pulse Ox 96 09/30/23 07:20 FiO2 21 09/28/23 16:25 Intake & Output 09/29/23 09/30/23 09/30/23 18:59 06:59 18:59 Intake Total 118 Balance 118 Intake: Oral 118 Other: Voiding Method Toilet # Voids 2 1 - Exam GENERAL EXAM: Alert, active, pleasant 63-year-old female, on room air, comfortable in no apparent distress. HEAD: Normocephalic. EYES: Normal reaction of pupils, equal size. NOSE: Clear with pink turbinates. THROAT: No erythema or exudates. NECK: No masses, no JVD. CHEST: Right sided Thora-Vent remains in place to Pleur-evac and loss. No leak. LUNGS: Equal air entry with no crackles, wheeze, rhonchi or dullness. Diminished. CVS: S1 and S2 normal with no audible murmur, regular rhythm. ABDOMEN: No hepatosplenomegaly, normal bowel sounds, no guarding or rigidity. SPINE: No scoliosis or deformity SKIN: No rashes CENTRAL NERVOUS SYSTEM: No focal deficits, tone is normal in all 4 extremities. EXTREMITIES: There is no peripheral edema. No clubbing, no cyanosis. Peripheral pulses are intact. - Labs CBC & Chem 7: 09/30/23 05:42 09/29/23 04:51 Labs: Abnormal Lab Results - Last 24 Hours (Table) 09/30/23 Range/Units 05:42 RBC 3.42 L (3.80-5.40) m/uL Hgb 10.4 L (11.4-16.0) gm/dL Hct 31.7 L (34.0-46.0) % Microbiology - Last 24 Hours (Table) 09/28/23 09:30 Gram Stain - Preliminary Bronchoalviolar Lavage - Right Bronchial Washings Culture - Preliminary 09/28/23 09:30 Acid Fast Bacilli Smear - Preliminary Bronchoalviolar Lavage - Right Assessment and Plan Assessment: Iatrogenic right-sided pneumothorax, status post Thora-Vent placement on 09/28/2023. Follow-up chest x-ray post occlusive capping reveals no evidence of pneumothorax. Removed on 09/30/2023 Acute hypoxemic respiratory failure secondary to above, recovered Solitary lung nodule, status post bronchoscopy and transbronchial biopsy Mild COPD History of laryngectomy for laryngeal cancer Chronic and ongoing tobacco dependence syndrome Plan: The patient was seen and evaluated Chest x-ray, labs and medications reviewed No evidence of pneumothorax post capping the Thora vent Thora vent removed, occlusive dressing applied Follow-up in the office this week Educated regarding the importance of complete smoking cessation NicoDerm patch remains in place I have personally seen and examined the patient, performed the documentation and the assessment and plan as written. Number of minutes spent on the visit: 10.
--- NOTE | 2023-09-30 12:15 | XR ---
EXAMINATION TYPE: XR chest 1V portable DATE OF EXAM: 09/30/2023 11:51 AM CLINICAL INDICATION:Female, 63 years old with history of PTX, follow up xray at 11:30; COMPARISON: Chest radiographs from 09/29/2023. TECHNIQUE: XR chest 1V portable Frontal view of the chest. FINDINGS: Lungs/Pleura: Right basilar atelectasis. There is no evidence of pleural effusion, focal consolidatio n, or pneumothorax. Pulmonary vascularity: Unremarkable. Heart/mediastinum: Cardiomediastinal silhouette is unremarkable. Musculoskeletal: No acute osseous pathology. Other findings: None Lines/Tubes: Right thoracotomy tube device without evidence for pneumothorax. IMPRESSION: Right thoracotomy tube device without evidence for pneumothorax.
[2023-09-30 13:01] VITALS: PULSE 88
--- NOTE | 2023-09-30 13:28 | P.DS ---
Providers Date of admission: 09/29/23 06:56 Expected date of discharge: 09/30/23 Attending physician: Jose Luis Oconnor Consults: 09/28/23 14:13 Consult Physician Routine Consulting Provider: Raza Nielsen Consult Reason/Comments: knows patient Do you want consulting provider notified?: Yes Primary care physician: Raza Nielsen [facility] Course: This is 63-year-old female with past medical history significant for nicotine dependence, laryngeal cancer with previous laryngectomy, recent abnormal chest CT/abnormal PET scan reporting a 1.2 cm the right upper lobe pulmonary nodule ,COPD , hypertension, hyperlipidemia ,chronic back pain admitted with pneumothorax status post bronchoscopy with biopsy. Yesterday she underwent robotic bronchoscopy with biopsy of lung nodule, developed a right-sided pneumothorax requiring thoravent placement admitted inpatient. Last night developed right-sided chest and right shoulder blade pain unrelieved by pain management. Patient was transferred to ICU, stat chest x-ray did not reported right sided Thoravent in place and no evidence of pneumothorax. This morning significant improvement. Sitting up in chair, pain controlled, calm ,maintaining O2 sats in the 90s on 2 L nasal cannula. Reports she is belching and burping. Exertional hypoxia, O2 decreased to 84% on room air while getting up in chair. Incentive spirometer up to 1500 Chest x-ray this morning reporting resolution of pneumothorax and thoravent clamped. Repeat chest x-ray pending. Afebrile, WBC 15.7. Hemoglobin 9.8, platelets 273, electrolytes within normal limits, renal function stable. Blood sugars controlled. 09/30/2023: She's been cleared by pulmonology, and stayed inflated. She's feeling better psychologically. Follow-up in the office next week Patient Condition at Discharge: Stable Plan - Discharge Summary Discharge Rx Participant: No New Discharge Prescriptions: New Nicotine 21Mg/24Hr Patch [Habitrol] 1 patch TRANSDERM DAILY #14 patch Continue hydroCHLOROthiazide 25 mg PO DAILY Ubidecarenone [Co Q-10] 400 mg PO DAILY HYDROcodone/APAP 10-325MG [[place]rib[place] 10-325] 1 tab PO Q6H PRN PRN Reason: Pain Atorvastatin [Lipitor] 40 mg PO DAILY DULoxetine HCL [Cymbalta] 60 mg PO DAILY Cholecalciferol [Vitamin D3 (25 Mcg = 1000 Iu)] 50 mcg PO DAILY Multivitamins, Thera [Multivitamin (formulary)] 1 tab PO DAILY Aspirin [[place] Aspirin EC] 81 mg PO DAILY Discharge Medication List Cholecalciferol [Vitamin D3 (25 Mcg = 1000 Iu)] 50 mcg PO DAILY 01/19/23 [History] HYDROcodone/APAP 10-325MG [[place] 10-325] 1 tab PO Q6H PRN 01/19/23 [History] Multivitamins, Thera [Multivitamin (formulary)] 1 tab PO DAILY 01/19/23 [History] Ubidecarenone [Co Q-10] 400 mg PO DAILY 01/19/23 [History] hydroCHLOROthiazide 25 mg PO DAILY 01/19/23 [History] Aspirin [[place] Aspirin EC] 81 mg PO DAILY 09/27/23 [History] Atorvastatin [Lipitor] 40 mg PO DAILY 09/27/23 [History] DULoxetine HCL [Cymbalta] 60 mg PO DAILY 09/27/23 [History] Nicotine 21Mg/24Hr Patch [Habitrol] 1 patch TRANSDERM DAILY #14 patch 09/30/23 [Rx] Follow up Appointment(s)/Referral(s): Jose Luis Oconnor MD [STAFF PHYSICIAN] - As Needed Raza Nielsen MD [Primary Care Provider] - 1 Week Patient Instructions/Handouts: *Surgery [facility] - Bronchoscopy Discharge Instructions, *[facility]gery [facility] - (Anesthesia) Discharge Instructions Outpatient Surgery, Spontaneous Pneumothorax (DC) Discharge Disposition: HOME SELF-CARE
== END 2023-09-30 15:33 | disposition home or self-care (01) | DRG 166 ==
LOC: ORWHC2ENDO 06:35 → 4SSUR 13:46 → 2SICU 23:40 → ORWHC2ENDO 09-29 06:59 → 6NMEDSUR 09-29 23:20
PROVIDERS: ADMIT Internal Medicine Critical Care Medicine; ATTEND Internal Medicine Critical Care Medicine
PROC: 0B9C8ZX Drainage of Right Upper Lung Lobe, Via Natural or Artificial Opening Endoscopic, Diagnostic (ICD-10-PCS; principal; 2023-09-28 08:00)
PROC: 0BD48ZX Extraction of Right Upper Lobe Bronchus, Via Natural or Artificial Opening Endoscopic, Diagnostic (ICD-10-PCS; principal; 2023-09-28 08:00)
PROC: 0BBC8ZX Excision of Right Upper Lung Lobe, Via Natural or Artificial Opening Endoscopic, Diagnostic (ICD-10-PCS; principal; 2023-09-28 08:00)
PROC: 0BDC8ZX Extraction of Right Upper Lung Lobe, Via Natural or Artificial Opening Endoscopic, Diagnostic (ICD-10-PCS; principal; 2023-09-28 08:00)
PROC: 8E0W8CZ Robotic Assisted Procedure of Trunk Region, Via Natural or Artificial Opening Endoscopic (ICD-10-PCS; principal; 2023-09-28 08:00)
PROC: 0W9930Z Drainage of Right Pleural Cavity with Drainage Device, Percutaneous Approach (ICD-10-PCS; 2023-09-28 08:00)
DX: J95.811 Postprocedural pneumothorax (principal); J96.01 Acute respiratory failure with hypoxia; R91.1 Solitary pulmonary nodule; J44.9 Chronic obstructive pulmonary disease, unspecified; I10 Essential (primary) hypertension; E78.5 Hyperlipidemia, unspecified; F41.9 Anxiety disorder, unspecified; G89.29 Other chronic pain; M54.9 Dorsalgia, unspecified; H91.92 Unspecified hearing loss, left ear; M19.90 Unspecified osteoarthritis, unspecified site; F17.210 Nicotine dependence, cigarettes, uncomplicated; Z71.6 Tobacco abuse counseling; Z79.82 Long term (current) use of aspirin; Z79.51 Long term (current) use of inhaled steroids; Z79.899 Other long term (current) drug therapy; Z85.21 Personal history of malignant neoplasm of larynx; Z85.828 Personal history of other malignant neoplasm of skin; Z86.16 Personal history of COVID-19
CPT/HCPCS: 31623; 31624; 31625; 31629; 71045; 71250; 80048; 83735; 85025; 87070; 87102; 87116; 87205; 87206; 88173; 88305; 88341; 88342

== ENCOUNTER → 2023-10-06 | Outpatient (CLI) | payer MEDICARE ==
[2023-10-06 17:26] LABS: INR 0.9 (<1.2); Prothrombin Time 10.4 sec (10.0-12.5)
[2023-10-06 17:27] LABS: Partial Thromboplastin Time 23.4 sec (22.0-30.0)
[2023-10-07 02:05] LABS: Basophils # (A) 0.07 X 10*3/uL (0.00-0.10); Basophils % (A) 0.7 %; Eosinophils # (A) 0.17 X 10*3/uL (0.04-0.35); Eosinophils % (A) 1.8 %; HCT 42.4 % (37.2-46.3); HGB 13.3 g/dL (12.0-15.0); Lymphocytes # (A) 2.88 X 10*3/uL (0.90-5.00); Lymphocytes % (A) 30.8 %; MCH 29.3 pg (27.0-32.0); MCHC 31.4 g/dL (32.0-37.0); MCV 93.4 FL (80.0-97.0); Mean Platelet Volume 9.8 FL (9.5-12.2); Monocytes # (A) 0.78 X 10*3/uL (0.20-1.00); Monocytes % (A) 8.4 %; NRBC Per 100 WBC 0 X 10*3/uL (0.00-0.01); Neutrophils # (A) 5.42 X 10*3/uL (1.80-7.70); Neutrophils % (A) 58.1 %; Platelet Count 412 X 10*3/uL (140-440); RBC 4.54 X 10*6/uL (4.10-5.20); RDW 13.5 % (11.5-14.5); WBC 9.34 X 10*3/uL (4.50-10.00)
[2023-10-07 02:09] LABS: Blood Urea Nitrogen 22.8 mg/dL (9.0-27.0); Carbon Dioxide 29.7 mmol/L (21.6-31.8); Chloride 98 mmol/L (96-109); Glucose 113 mg/dL (70-110); Potassium 3.9 mmol/L (3.5-5.5); Sodium 140 mmol/L (135-145)
[2023-10-07 04:22] LABS: Appearance,Urine Clear (Clear); Bilirubin,Urine Negative (Negative); Blood,Urine Negative (Negative); Color,Urine Yellow (Yellow); Ketones,Urine Negative (Negative); Nitrite,Urine Negative (Negative); Specific Gravity,Urine 1.025 (1.001-1.030); Urobilinogen,Urine 0.2 E.U./DL
== END | disposition home or self-care (01) ==
LOC: LABPAT 16:13
PROVIDERS: ATTEND Thoracic Surgery (Cardiothoracic Vascular Surgery)
DX: Z01.818 Encounter for other preprocedural examination (principal); C34.11 Malignant neoplasm of upper lobe, right bronchus or lung; E87.8 Other disorders of electrolyte and fluid balance, not elsewhere classified; I51.7 Cardiomegaly; R58 Hemorrhage, not elsewhere classified; R53.83 Other fatigue; R94.31 Abnormal electrocardiogram [ECG] [EKG]
CPT/HCPCS: 36415; 80051; 81003; 82565; 82947; 84520; 85025; 85610; 85730; 86850; 86900; 86901; 87086; 93005

== ENCOUNTER 2023-10-11 09:35 | Inpatient (IN) | payer MEDICARE ==
[~2023-10-11 09:35] MED LIST: DEXAMETHASONE SOD PHOSPHATE 4 MG/ML 1 ML VIAL IV ONE; HYDROmorphone 0.5 MG/0.5 ML SYRINGE IVP PRN; ONDANSETRON 4 MG/2 ML VIAL IVP ONE
[2023-10-11 10:11] VITALS: RESP 16; TEMP 97.3
[2023-10-11] MEDS: LACTATED RINGERS 1,000 ML IV SCH ×2 (10:34→10:35)
[2023-10-11] MEDS ORDERED: MIDAZOLAM 2 MG/2 ML VIAL IVP ONE ×2 (13:03→13:29)
[2023-10-11 14:16] VITALS: BP 133/63; PULSE 65
--- NOTE | 2023-10-11 15:03 | P.ANPRN ---
Procedure Note - Anesthesia - Invasive Line Right Arterial Line Time Out Performed: Yes Date of Procedure: 10/11/23 Time of Procedure: 13:26 Location of Patient: PreOp Preparation: Sterile Prep, Sterile Dressing Arterial Line Location: Radial Ultrasound Used: No Purpose - Visualization and Identification of Vasculature: No Image Stored and Saved: No Narrative: Central line placement per sterile protocol utilized.
--- NOTE | 2023-10-12 11:57 | P.ANPRN ---
Procedure Note - Anesthesia - Nerve Block Performed Right Erector Spinae Single Time Out Performed: Yes Date of Procedure: 10/11/23 Procedure Start Time: 13:15 Procedure Stop Time: 13:20 Location of Patient: PreOp Indication: Acute Post-Operative Pain, Requested by Surgeon Sedation Type: Sedate with meaningful contact maintained Preparation: Sterile Prep Position: Sitting Needle Types: Pajunk Needle Gauge: 21 Ultrasound used to visualize needle placement: Yes Ultrasound used to observe medication spread: Yes Blood Aspirated: No Pain Paresthesia on Injection Noted: No Resistance on Injection: Normal Image Stored and Saved: Yes Events: Uneventful and Well Tolerated (ropi .5% 15cc plus ns 10cc plus dexamethasone 4mg)
== END 2023-10-11 14:11 | disposition home or self-care (01) | DRG 182 ==
LOC: 2ORMAIN 09:35 → EDSTATUS 11:15
PROVIDERS: ADMIT Thoracic Surgery (Cardiothoracic Vascular Surgery); ATTEND Thoracic Surgery (Cardiothoracic Vascular Surgery)
DX: C34.11 Malignant neoplasm of upper lobe, right bronchus or lung (principal); Z53.8 Procedure and treatment not carried out for other reasons; I10 Essential (primary) hypertension; E78.5 Hyperlipidemia, unspecified; Z87.891 Personal history of nicotine dependence; J44.9 Chronic obstructive pulmonary disease, unspecified; H91.90 Unspecified hearing loss, unspecified ear; M54.9 Dorsalgia, unspecified; Z85.828 Personal history of other malignant neoplasm of skin; Z79.899 Other long term (current) drug therapy; Z79.82 Long term (current) use of aspirin

== ENCOUNTER → 2023-10-25 | Outpatient (CLI) | payer MEDICARE | END | disposition home or self-care (01) | LOC: LABPAT 11:49 | PROVIDERS: ATTEND Thoracic Surgery (Cardiothoracic Vascular Surgery) | DX: Z01.812 Encounter for preprocedural laboratory examination (principal); C34.11 Malignant neoplasm of upper lobe, right bronchus or lung | CPT/HCPCS: 86850; 86900; 86901 ==

== ENCOUNTER 2023-11-01 06:41 | Inpatient (IN) | payer MEDICARE ==
[2023-11-01] MEDS ORDERED: ONDANSETRON 4 MG/2 ML VIAL IVP ONE (06:52)
[2023-11-01] MEDS ORDERED: LIDOCAINE 1% (10MG/ML) FOR IV START INTRADERMA PRN (06:52)
[2023-11-01] MEDS ORDERED: DEXAMETHASONE SOD PHOSPHATE 4 MG/ML 1 ML VIAL IV ONE (06:52)
[2023-11-01] MEDS ORDERED: MIDAZOLAM 2 MG/2 ML VIAL IV PRN (06:52)
[2023-11-01] MEDS ORDERED: LACTATED RINGERS 1,000 ML IV SCH (06:52)
[2023-11-01] MEDS ORDERED: MIDAZOLAM 2 MG/2 ML VIAL IVP ONE ×3 (07:40→08:00)
[2023-11-01] MEDS ORDERED: fentaNYL (PF) 50 MCG/ML 2 ML AMP IVP ONE ×2 (07:41→07:45)
[2023-11-01] MEDS ORDERED: PROPOFOL 10 MG/ML 20 ML VIAL IV ONE (08:46)
[2023-11-01] MEDS ORDERED: LIDOCAINE 1% INJ 10MG/ML (20 ML MDV) ONE (08:46)
[2023-11-01] MEDS ORDERED: ROCURONIUM 10 MG/ML (5 ML VIAL) IV ONE (08:46)
[2023-11-01] MEDS ORDERED: NEOSTIGMINE 1 MG/ML 10 ML VIAL ONE (08:46)
[2023-11-01] MEDS ORDERED: SUCCINYLCHOLINE CHLORIDE 200 MG/10 ML VIAL IV ONE (08:46)
[2023-11-01] MEDS ORDERED: PHENYLEPHRINE-0.9% NACL SYG 1,000 MCG/10 ML SYRINGE ONE (08:46)
[2023-11-01] MEDS ORDERED: KETAMINE HCL IN 0.9 % NACL 50 MG/5 ML SYRINGE ONE (08:46)
[2023-11-01] MEDS ORDERED: SODIUM CHLORIDE 0.9% (PF) 10 ML VIAL ONE (08:46)
[2023-11-01] MEDS ORDERED: GLYCOPYRROLATE 0.2 MG/ML 2 ML VIAL ONE (08:46)
[2023-11-01] MEDS ORDERED: fentaNYL (PF) 50 MCG/ML 2 ML AMP ONE (08:46)
[2023-11-01] MEDS ORDERED: ROPIVACAINE 5 MG/ML 30 ML VIAL ONE (08:46)
[2023-11-01] MEDS ORDERED: ACETAMINOPHEN IV (For NPO) 1,000 MG/100 ML VIAL ONE (08:46)
[2023-11-01] MEDS ORDERED: DEXAMETHASONE SOD PHOSPHATE 4 MG/ML 1 ML VIAL ONE (08:46)
--- NOTE | 2023-11-01 08:48 | P.ANPRN ---
Procedure Note - Anesthesia - Invasive Line Right Arterial Line Time Out Performed: Yes Date of Procedure: 11/01/23 Time of Procedure: 07:50 Location of Patient: PreOp Preparation: Sterile Prep, Sterile Dressing Arterial Line Location: Radial Ultrasound Used: Yes Purpose - Visualization and Identification of Vasculature: Yes Image Stored and Saved: Yes Narrative: Central line placement per sterile protocol utilized.
--- NOTE | 2023-11-01 08:49 | P.ANPRN ---
Procedure Note - Anesthesia - Nerve Block Performed Right Erector Spinae Single Time Out Performed: Yes Date of Procedure: 11/01/23 Procedure Start Time: 07:40 Procedure Stop Time: 07:45 Location of Patient: PreOp Indication: Acute Post-Operative Pain, Requested by Surgeon Sedation Type: Sedate with meaningful contact maintained Preparation: Sterile Prep Position: Prone Needle Types: Pajunk Needle Gauge: 21 Ultrasound used to visualize needle placement: Yes Ultrasound used to observe medication spread: Yes Injectate: 0.5% Ropivacaine (see comment for volume) (20 ml + 10 ml NS + 4 mg Dexamethasone) Blood Aspirated: No Pain Paresthesia on Injection Noted: No Resistance on Injection: Normal Image Stored and Saved: Yes Events: Uneventful and Well Tolerated
[2023-11-01] MEDS ORDERED: BUPIVACAINE (PF) 0.5% 30 ML VIAL SQ ONE (09:25)
--- NOTE | 2023-11-01 11:58 | P.OP ---
Date of Procedure: 11/01/23 Preoperative Diagnosis: Lung Cancer Postoperative Diagnosis: Same Procedure(s) Performed: 1. Bronchoscopy 2. Right robotic assisted thorascopic surgery with right upper lobectomy 3. Intercostal nerve block - 2 levels 4. Mediastinal lymph node dissection Anesthesia: SMITH Surgeon: Александр Mojica Estimated Blood Loss (ml): 25 IV fluids (ml): 1,000 Pathology: other Condition: stable Disposition: PACU (RUL, LN stations 4R,7,9R,10R, 11R, 12RUL) Indications for Procedure: This patient is a 63 year-old female with a 45 pack year smoking history who had a lung cancer screening CT which revealed a RUL nodule. Further work-up revealed NSCLC without metastatic disease. She was deemed a good candidate for surgical resection. Operative Findings: some adheshions to RUL and RML to mediastinum taken down sharply. Description of Procedure: The patient underwent left radial arterial line placement and errecter spinae block by the anesthesia team in pre-op. She was brought back to the operating room and placed on the table in the supine position. She was intubated with a 37F left sided NOEMY which was confirmed with bronchoscopy. A diagnostic bronchoscopy was also performed which revealed no lesions or abnormalities in the entire tracheo-bronchial tree especially the right upper lobe. There was minimal to no secretions. The patient was then positioned in the left lateral decubitus position and his right chest was prepped and draped in the usual sterile fashion. The double lumen tube position was once again checked using bronchoscopy. A time-out was performed and antibiotics were given. The right lung was isolated. We made a 1cm incision in the 8th intercostal space mid axillary line. The 8mm trocar was inserted into the chest bluntly. The robotic camera was inserted and there was no injury to the lung and there was good lung isolation. We placed then placed 12mm trocars 10cm anteriorly and 10cm posteriorly in the 8th intercostal space. A 4th 8mm port was placed posteriorly in the 7th ICS posteriorly. We placed a 15mm certified first assistant port in between ports 1 and 2 10th ICS above the diaphragm. Intercostal nerve block was performed at 3 levels. The [employer] Xi robot was then docked. Attention was then turned towards the inferior pulmonary ligament which was taken down using the bipolar cautery. This dissection was carried upward with the bipolar cautery posteriorly along the mediastinal pleura. Level 9,8 and 7 lymph nodes were harvested here. The right mainstem bronchus was identified and followed up into the lung. The taylor in between the RUL bronchus and bronchus intermedius was dissected using the bipolar cautery and bluntly. At this point, R 10, R11 and R4 node was taken above the azygous vein. There was significant adhesions of the upper lobe to the mediastinum. These were taken down using bipolar cautery. There was no evidence of tumor invasion into chest wall. I then proceeded to divide the anterior mediastinal pleura and carried this dissection upward. At this point the superior pulmonary vein was identified and encircled with a vessel loop taking care to preserve the vein to the middle lobe. A robotic white load was fired across the vein. Next, the truncus arteriosus was circumferentially dissected and encircled with a vessel loop. Once again, the robotic white load was fired across this vessel. . Attention was then turned posterior towards the upper lobe bronchus. Here the level 12 node was harvested. The upper lobe bronchus was bluntly encircled with a vessel loop and a robotic green load was fired across the upper lobe bronchus. Lastly the anterior and posterior fissures were divided using multiple firings of the robotic green load stapler. The lung was placed in a retrieval bag, and the right chest was irrigated with water and a leak test on the bronchus was performed which was negative. The robot was undocked, the specimen was removed from the chest cavity and a 28F chest tube was placed via the most anterior incision and two lung ventilation was resumed. The patient was extubated and transferred to recovery with minor air leak
--- NOTE | 2023-11-01 12:36 | XR ---
EXAMINATION TYPE: XR chest 1V portable DATE OF EXAM: 11/01/2023 COMPARISON: 09/30/2023 HISTORY: Postop TECHNIQUE: Single frontal view of the chest is obtained. FINDINGS: A right-sided chest tube seen with some small amount subcutaneous emphysema and a tiny les s than 5% right apical pneumothorax. There is prominence of the right hilum. Heart size normal. Surgi kylie clips gallbladder fossa. Diffuse osteopenia. Degenerative change of the spine. Subsegmental christopher es left lung base favor atelectasis. Underlying emphysematous changes suspected. IMPRESSION: 1. Postsurgical changes with chest tube in position and a tiny less than 5% right apical pneumothorax .
[2023-11-01] MEDS: HYDROmorphone 0.5 MG/0.5 ML SYRINGE IVP PRN ×4 (12:42→17:42)
[2023-11-01] MEDS ORDERED: droPERidol 5 MG/2 ML VIAL IVP ONE (12:55)
[2023-11-01] MEDS ORDERED: METOCLOPRAMIDE 5 MG/ML 2 ML VIAL IVP PRN (13:39)
[2023-11-01] MEDS ORDERED: traMADol 50 MG TAB PO PRN (13:39)
[2023-11-01] MEDS ORDERED: IPRATROPIUM-ALBUTEROL 3 ML NEB IH PRN (13:39)
[2023-11-01] MEDS ORDERED: ONDANSETRON 4 MG/2 ML VIAL IVP PRN (13:39)
[2023-11-01] MEDS ORDERED: bisacodyL 10 MG SUPP RECTAL PRN (13:39)
[2023-11-01 13:40] LABS: Glucose,Whole Blood 147 mg/dL (70-110)
[2023-11-01] MEDS: HYDROcodone/APAP 10-325MG 1 EACH TAB PO PRN ×2 (13:47→19:53)
[2023-11-01] MEDS ORDERED: DEXTROSE 5%-0.45% NACL 1,000 ML IV SCH (14:00)
[2023-11-01] MEDS: IPRATROPIUM-ALBUTEROL 3 ML NEB IH SCH ×2 (15:15→20:22)
[2023-11-01] MEDS ORDERED: KETOROLAC 15 MG/ML 1 ML VIAL IVP STA (15:25)
--- NOTE | 2023-11-01 16:10 | P.CNPUL ---
History of Present Illness Consult date: 11/01/23 Reason for consult: lung mass History of present illness: 63-year-old female patient diagnosed in early stage adenocarcinoma of the lung and the patient is presenting in to undergo a surgical resection. The patient underwent a robotic-assisted thoracoscopic right upper lobectomy with intercostal nerve block at 2 different levels. The patient had also missed lymph node dissection. The patient is currently postop day #0. She has a right-sided chest tube in place which is essentially waterseal. No evidence of any air leak. Output from the chest was minimal at this point in time. The chest x-ray postop shows no evidence of any pneumothorax. The patient is currently on 2 L of oxygen by nasal cannula with a pulse ox of 96%. She is requiring some Dilaudid for pain control. Afebrile. Hemodynamically stable. Awake and alert. Her original lesion was a 1.2 cm right upper lobe pulmonary nodule. This was biopsied and the patient developed a right-sided pneumothorax treated with a thoravent back in 09/28/2023. Review of Systems constitutional: Negative HEENT: Negative except for previous history of laryngectomy Pulmonary: No cough no wheezing no shortness of breath no chest pain. Cardiac: Negative GI: Negative Genitourinary: Negative Musculoskeletal: Negative Psychiatric: Negative Endocrine: Negative Skin: Negative Neurologic: Negative Past Medical History Past Medical History: Cancer, COPD, Hearing Disorder / Deafness, Hyperlipidemia, Hypertension Additional Past Medical History / Comment(s): Back pain since early . Degenerative discs, leg pain with it. Had recent bone scan and ct scan, hx skin cancer, has had eye injections for bleeding behind retina of left eye, pt states her COPD is "borderline." Hard of hearing in left ear. found nodule in lung after pet scan sep 22 History of Any Multi-Drug Resistant Organisms: None Reported Past Surgical History: Appendectomy, Section, Ear Surgery, Orthopedic Surgery Additional Past Surgical History / Comment(s): Laparoscopies for infertility, skin cancer on leg removed, brain aneurysm with coiling, right ring finger trigger finger release. lung bx -lung punctured Past Anesthesia/Blood Transfusion Reactions: No Reported Reaction Additional Past Anesthesia/Blood Transfusion Reaction / Comment(s): no blood transfusion Smoking Status: Former smoker - Past Family History Father Family Medical History: Cancer Additional Family Medical History / Comment(s): Brain tumor. Mother Family Medical History: Cancer Additional Family Medical History / Comment(s): Breast, neck, vulva cancer. Sister(s) Family Medical History: Cancer Additional Family Medical History / Comment(s): Breast cancer, one sister, other sister brain tumor. Brother(s) Family Medical History: Cancer Additional Family Medical History / Comment(s): "Full of cancer." Medications and Allergies Home Medications Medication Instructions Recorded Confirmed Type HYDROcodone/APAP 10-325MG [Darwin 1 tab PO Q6H PRN 01/19/23 11/01/23 History 10-325] hydroCHLOROthiazide 25 mg PO DAILY 01/19/23 11/01/23 History Aspirin [[place] Aspirin EC] 81 mg PO DAILY 09/27/23 11/01/23 History Atorvastatin [Lipitor] 40 mg PO DAILY 09/27/23 11/01/23 History DULoxetine HCL [Cymbalta] 60 mg PO DAILY 09/27/23 11/01/23 History Nicotine 21Mg/24Hr Patch [Habitrol] 1 patch TRANSDERM DAILY #14 patch 09/30/23 11/01/23 Rx Cholecalciferol [Vitamin D3 (25 50 mcg PO DAILY 10/24/23 11/01/23 History Mcg = 1000 Iu)] Fluticasone/Umeclidin/Vilanter 1 inhalation INHALATION DAILY 10/24/23 11/01/23 History [Trelegy Ellipta 100-62.5-25] Ubidecarenone [Co Q-10] 200 mg PO DAILY 10/24/23 11/01/23 History Allergies Allergy/AdvReac Type Severity Reaction Status Date / Time No Known Allergies Allergy Verified 11/01/23 07:23 Physical Exam Vitals: Vital Signs Temp Pulse Pulse Pulse Resp BP BP 11/01/23 15:00 57 L 12 11/01/23 14:00 76 11 L 11/01/23 13:50 97.6 F 87 11 L 128/65 11/01/23 13:22 11/01/23 13:08 79 16 11/01/23 12:53 79 16 11/01/23 12:38 72 16 11/01/23 12:23 55 L 16 11/01/23 12:08 97.5 F L 70 10 L 12/06/23 08:26 65 16 118/58 12/06/23 07:16 97.5 F L 76 18 124/62 BP BP Pulse Ox 11/01/23 15:00 96 11/01/23 14:00 93 L 11/01/23 13:50 96 11/01/23 13:22 119/56 11/01/23 13:08 122/59 99 11/01/23 12:53 149/66 164/88 100 11/01/23 12:38 151/68 165/72 100 11/01/23 12:23 171/76 159/67 100 11/01/23 12:08 166/64 100 11/01/23 08:26 96 11/01/23 07:16 95 Intake and Output 11/01/23 11/01/23 11/01/23 06:59 14:59 22:59 Intake Total 1690 40 Output Total 50 Balance 1640 40 Intake: IV 1650 Intake, IV Titration 40 40 Amount Dextrose 5%-0.45% NaCl 1, 40 40 000 ml @ 40 mls/hr IV . Q24H [facility] Rx#:[id number] Output: Pleural Fluid 30 Estimated Blood Loss 20 Other: Weight 74.6 kg ABP, PAP, CO, CI - Last 8 Hours Arterial Blood Pressure 130/57 Arterial Blood Pressure 139/66 Arterial Blood Pressure 133/72 GENERAL EXAM: Alert, active, pleasant 63-year-old female, on room air, comfortable in no apparent distress. The patient is currently on 2 L of oxygen by nasal cannula HEAD: Normocephalic. EYES: Normal reaction of pupils, equal size. NOSE: Clear with pink turbinates. THROAT: No erythema or exudates. NECK: No masses, no JVD. CHEST: Right sided chest tube is in place. Surgical once is dry clean and intact LUNGS: Equal air entry with no crackles, wheeze, rhonchi or dullness. Diminished. The patient is a right-sided chest tube in place. No evidence of any serpiginous emphysema. No evidence of any air leak. CVS: S1 and S2 normal with no audible murmur, regular rhythm. ABDOMEN: No hepatosplenomegaly, normal bowel sounds, no guarding or rigidity. SPINE: No scoliosis or deformity SKIN: No rashes CENTRAL NERVOUS SYSTEM: No focal deficits, tone is normal in all 4 extremities. EXTREMITIES: There is no peripheral edema. No clubbing, no cyanosis. Peripheral pulses are intact. Results - Laboratory Findings Abnormal lab findings: Abnormal Labs 10/25/23 11/01/23 11:55 13:38 POC Glucose (mg/dL) 147 H Crossmatch See Detail - Diagnostic Findings Chest x-ray: image reviewed Assessment and Plan Plan: Robotic-assisted right upper lobectomy with mediastinal lymph node dissection. The patient's postop day #0 Adenocarcinoma of the lung, early stage with a 1.2 cm right upper lobe pulmonary nodule, post robotic a bronchoscopy that was done on 09/28/2023 COPD, mild with an FEV1 of 72% of predicted, maintain on Trelegy Ellipta on an outpatient basis History of laryngeal cancer post laryngectomy History of smoking Hyperlipidemia Chronic anxiety/depression Hypertension maintain on hydrochlorothiazide on outpatient basis Plan Clinically stable and hemodynamically stable Provide incentive spirometer Aggressive pulmonary toileting Give the right-sided chest tube in place Daily chest x-rays Pain control with Dilaudid. The patient was also ordered Darwin for pain control Resume all medication including heparin subcu portably prophylaxis The patient was kept in ICU for monitoring.
[2023-11-01] MEDS: HEPARIN SODIUM,PORCINE 5,000 UNIT/ML 1 ML VIAL SQ SCH ×2 (17:01→22:59)
[2023-11-01] MEDS: traMADol 50 MG TAB PO SCH ×2 (18:05→22:59)
[2023-11-01] MEDS: FORMOTEROL FUMARATE 20 MCG/2 ML NEBU INHALATION SCH (20:22)
[2023-11-02] MEDS: HYDROmorphone 0.5 MG/0.5 ML SYRINGE IVP PRN ×5 (00:08→23:20)
[2023-11-02 05:13] LABS: Basophils % (A) 0 %; Eosinophils % (A) 0 %; HCT 31.8 % (34.0-46.0); HGB 10.6 gm/dL (11.4-16.0); Lymphocytes # (A) 1.8 k/uL (1.0-4.8); Lymphocytes % (A) 15 %; MCH 30.9 pg (25.0-35.0); MCHC 33.4 g/dL (31.0-37.0); MCV 92.6 fL (80.0-100.0); Mean Platelet Volume 7.8; Monocytes # (A) 0.5 k/uL (0-1.0); Monocytes % (A) 4 %; Neutrophils % (A) 80 %; Platelet Count 248 k/uL (150-450); RBC 3.44 m/uL (3.80-5.40); RDW 13.7 % (11.5-15.5); WBC 12.4 k/uL (3.8-10.6)
[2023-11-02 05:37] LABS: African American GFR (CKD) >90 (>60 ml/min/1.73 sqM); Anion Gap 8 mmol/L; Blood Urea Nitrogen 17 mg/dL (7-17); Calcium 8.8 mg/dL (8.4-10.2); Carbon Dioxide 25 mmol/L (22-30); Chloride 102 mmol/L (98-107); Glucose 168 mg/dL (74-99); Non-African American GFR(CKD) >90 (>60 ml/min/1.73 sqM); Potassium 3.4 mmol/L (3.5-5.1); Sodium 135 mmol/L (137-145)
[2023-11-02] MEDS ORDERED: Potassium Replacement Protocol 1 EACH MISC MISCELLANE PRN (05:45)
[2023-11-02] MEDS: POTASSIUM CHLORIDE ER 20 MEQ TAB.ER PO SCH ×2 (06:17→06:18)
[2023-11-02] MEDS: HYDROcodone/APAP 10-325MG 1 EACH TAB PO PRN ×2 (06:18→15:46)
[2023-11-02] MEDS: IPRATROPIUM-ALBUTEROL 3 ML NEB IH SCH ×4 (07:40→20:13)
[2023-11-02] MEDS: FORMOTEROL FUMARATE 20 MCG/2 ML NEBU INHALATION SCH ×2 (07:40→20:13)
--- NOTE | 2023-11-02 07:54 | XR ---
EXAMINATION TYPE: XR chest 1V DATE OF EXAM: 11/02/2023 HISTORY: Shortness of breath. COMPARISON: 11/01/2023 TECHNIQUE: Single view of the chest is submitted. FINDINGS: Right-sided chest tube is unchanged in position. Tiny right apical pneumothorax seen previously is re demonstrated and is estimated at less than 10%. Small amount of subcutaneous air within the right nec k and right lower chest wall. Left basilar compressive atelectasis. There is no evidence for focal infiltrate. The heart is stable. Hilar and mediastinal structures are within normal limits. Degenerative changes are seen of the dorsal spine. IMPRESSION: 1. Right-sided chest tube is unchanged in position. Tiny right apical pneumothorax seen previously i s redemonstrated and is estimated at less than 10%.
[2023-11-02] MEDS: KETOROLAC 15 MG/ML 1 ML VIAL IVP SCH ×3 (08:10→17:21)
[2023-11-02] MEDS: HEPARIN SODIUM,PORCINE 5,000 UNIT/ML 1 ML VIAL SQ SCH ×2 (08:11→15:46)
[2023-11-02] MEDS: traMADol 50 MG TAB PO SCH ×4 (08:12→21:25)
[2023-11-02] MEDS: DULoxetine HCL 60 MG CAPSULE.DR PO SCH (08:12)
[2023-11-02] MEDS: CHOLECALCIFEROL 25 MCG (1000 IU) TABLET PO SCH (08:12)
[2023-11-02] MEDS: ATORVASTATIN 40 MG TAB PO SCH (08:12)
[2023-11-02] MEDS: ASPIRIN 81 MG PO SCH (08:13)
[2023-11-02] MEDS: hydroCHLOROthiazide 25 MG TAB PO SCH (08:25)
--- NOTE | 2023-11-02 10:08 | P.PN ---
Subjective Progress Note Date: 11/02/23 63-year-old female patient diagnosed in early stage adenocarcinoma of the lung and the patient is presenting in to undergo a surgical resection. The patient underwent a robotic-assisted thoracoscopic right upper lobectomy with intercostal nerve block at 2 different levels. The patient had also missed l ymph node dissection. The patient is currently postop day #0. She has a right- sided chest tube in place which is essentially waterseal. No evidence of any air leak. Output from the chest was minimal at this point in time. The chest x-ray postop shows no evidence of any pneumothorax. The patient is currently on 2 L of oxygen by nasal cannula with a pulse ox of 96%. She is requiring some Dilaudid for pain control. Afebrile. Hemodynamically stable. Awake and alert. Her original lesion was a 1.2 cm right upper lobe pulmonary nodule. This was biopsied and the patient developed a right-sided pneumothorax treated with a thoravent back in 09/28/2023. 11/12/2023, she is doing well. No specific complaints. The chest x-rays showing probably a tiny right apical pneumothorax. Chest tube is in a good location. No evidence of any consolidation. No airspace disease. She does have some intermittent air leak and her chest tubes essentially waterseal. Clinically stable. Hemodynamically stable. Communicating on 2 L of oxygen by nasal cannula. No other significant events overnight. She is postop day number. The patient had labs today that showed a WBC count of 12.4, hemoglobin of 10.6, electrolytes are all within normal limits. The patient will be moved to a medical floor. She is on hydrochlorothiazide for blood pressure control. She is on DuoNeb nebulized treatments. Pain control is with Dilaudid and [place] as needed. Objective - Vital Signs Vital signs: Vital Signs Temp 97.9 F 11/02/23 08:00 Pulse 56 L 11/02/23 08:02 Resp 13 11/02/23 08:00 BP 120/55 11/02/23 08:00 Pulse Ox 97 11/02/23 08:00 FiO2 Intake & Output 11/01/23 11/02/23 11/02/23 18:59 06:59 18:59 Intake Total 1850 1030 Output Total 280 885 0 Balance 1570 145 0 Weight 74.6 kg 76.1 kg Intake: IV 1650 Intake, IV Titration 200 530 Amount Dextrose 5%-0.45% NaCl 1, 200 480 000 ml @ 40 mls/hr IV . Q24H [facility] Rx#:[id number] ceFAZolin 2 gm In Sodium 50 Chloride 0.9% 50 ml @ 100 mls/hr IVPB Q8HR [facility] Rx# :[id number] Oral 500 Output: Chest Tube Drainage 10 Chest Tube Right Lateral 10 Chest Drainage 30 Right Chest 30 Urine 200 875 0 Pleural Fluid 30 Estimated Blood Loss 20 Other: Voiding Method Bedside Commode ABP, PAP, CO, CI - Last Documented Arterial Blood Pressure 138/50 - Exam GENERAL EXAM: Alert, active, pleasant 63-year-old female, on room air, comfortable in no apparent distress. The patient is currently on 2 L of oxygen by nasal cannula HEAD: Normocephalic. EYES: Normal reaction of pupils, equal size. NOSE: Clear with pink turbinates. THROAT: No erythema or exudates. NECK: No masses, no JVD. CHEST: Right sided chest tube is in place. Surgical once is dry clean and intact LUNGS: Equal air entry with no crackles, wheeze, rhonchi or dullness. Diminished. The patient is a right-sided chest tube in place. No evidence of any serpiginous emphysema. No evidence of any air leak. CVS: S1 and S2 normal with no audible murmur, regular rhythm. ABDOMEN: No hepatosplenomegaly, normal bowel sounds, no guarding or rigidity. SPINE: No scoliosis or deformity SKIN: No rashes CENTRAL NERVOUS SYSTEM: No focal deficits, tone is normal in all 4 extremities. EXTREMITIES: There is no peripheral edema. No clubbing, no cyanosis. Peripheral pulses are intact. - Labs CBC & Chem 7: 11/02/23 05:00 11/02/23 05:00 Labs: Abnormal Lab Results - Last 24 Hours (Table) 10/25/23 11/01/23 11/02/23 Range/Units 11:55 13:38 05:00 WBC 12.4 H (3.8-10.6) k/uL RBC 3.44 L (3.80-5.40) m/uL Hgb 10.6 L (11.4-16.0) gm/dL Hct 31.8 L (34.0-46.0) % Neutrophils # 10.0 H (1.3-7.7) k/uL Sodium (137-145) mmol/L Potassium (3.5-5.1) mmol/L Glucose (74-99) mg/dL POC Glucose (mg/dL) 147 H (70-110) mg/dL Crossmatch See Detail 11/02/23 Range/Units 05:00 WBC (3.8-10.6) k/uL RBC (3.80-5.40) m/uL Hgb (11.4-16.0) gm/dL Hct (34.0-46.0) % Neutrophils # (1.3-7.7) k/uL Sodium 135 L (137-145) mmol/L Potassium 3.4 L (3.5-5.1) mmol/L Glucose 168 H (74-99) mg/dL POC Glucose (mg/dL) (70-110) mg/dL Crossmatch Assessment and Plan Plan: Robotic-assisted right upper lobectomy with mediastinal lymph node dissection. The patient's postop day #1 questionable small right apical pneumothorax and int ermittent air leak in the right-sided chest tube is attached to waterseal Adenocarcinoma of the lung, early stage with a 1.2 cm right upper lobe pulmonary nodule, post robotic a bronchoscopy that was done on 09/28/2023 COPD, mild with an FEV1 of 72% of predicted, maintain on Trelegy Ellipta on an outpatient basis History of laryngeal cancer post laryngectomy History of smoking Hyperlipidemia Chronic anxiety/depression Hypertension maintain on hydrochlorothiazide on outpatient basis Plan Clinically stable and hemodynamically stable Provide incentive spirometer Aggressive pulmonary toileting Give the right-sided chest tube in place Daily chest x-rays Pain control with Dilaudid. The patient was also ordered [place] for pain control Resume all medication including heparin subcu portably prophylaxis The patient will be kept in ICU for today
--- NOTE | 2023-11-02 16:30 | P.PN ---
Subjective Progress Note Date: 11/02/23 Principal diagnosis: Adenocarcinoma of the lung, with a history of 1.2 cm right upper lobe pulmonary nodule. Past medical history significant for COPD, with a preoperative FEV1 72% of predicted value, history of laryngeal cancer post-laryngectomy, hypertension, hyperlipidemia, chronic anxiety and depression, and history of nicotine dependence. POD #1 bronchoscopy, robotic assisted thoracoscopic surgery with right upper lobectomy, intercostal nerve block2 levels, mediastinal lymph node dissection. The patient was seen and examined at her bedside in the intensive care unit today 11/02/2023. Currently she is sitting up to the bedside chair, is awake, alert, oriented 3 and is in no acute distress. She is complaining of some pain to her chest tube insertion sites, although denies any complaints of shortness of breath. Oxygen saturation are 98% on 2 L nasal cannula and she is achieving 500 mL on her incentive spirometry with encouragement. Bedside telemetry showi ng sinus bradycardia heart rate 57 BPM. She remained hemodynamically stable and is currently on no inotropic or pressor support. Right pleural chest tube remains in place to water seal with intermittent air leak present with coughing. Draining thin serosanguineous drainage with 10 mL output in the last 8 hours and 70 mL output in the last 24 hours. She has been afebrile the last 24 hours. Laboratory and chest x-ray results were reviewed. Objective - Vital Signs Vital signs: Vital Signs Temp 98.2 F 11/02/23 04:00 Pulse 56 L 11/02/23 08:02 Resp 12 11/02/23 07:00 BP 120/55 11/02/23 04:00 Pulse Ox 98 11/02/23 07:00 FiO2 Intake & Output 11/01/23 11/02/23 11/02/23 18:59 06:59 18:59 Intake Total 1850 1030 Output Total 280 885 0 Balance 1570 145 0 Weight 74.6 kg 76.1 kg Intake: IV 1650 Intake, IV Titration 200 530 Amount Dextrose 5%-0.45% NaCl 1, 200 480 000 ml @ 40 mls/hr IV . Q24H [facility] Rx#:[id number] ceFAZolin 2 gm In Sodium 50 Chloride 0.9% 50 ml @ 100 mls/hr IVPB Q8HR [facility] Rx# :[id number] Oral 500 Output: Chest Tube Drainage 10 Chest Tube Right Lateral 10 Chest Drainage 30 Right Chest 30 Urine 200 875 0 Pleural Fluid 30 Estimated Blood Loss 20 Other: Voiding Method Bedside Commode ABP, PAP, CO, CI - Last Documented Arterial Blood Pressure 147/56 - Exam CONSTITUTIONAL: Appears comfortable, cooperative, no acute distress RESPIRATORY: Lungs sounds diminished bilaterally. Respirations are symmetrical, nonlabored. Currently on 2 L nasal cannula with oxygen saturation 98%. Able to achieve 500 mL on incentive spirometry. Strong cough. CARDIOVASCULAR: S1, S2 present. Regular rate and rhythm, sinus rhythm on telemetry. Palpable peripheral pulses bilaterally. No edema present. No calf pain or tenderness noted. SCDs present. GASTROINTESTINAL: Abdomen soft, nontender, nondistended. Active bowel sounds present 4 quadrants. Tolerating diet. Positive bowel movement. GENITOURINARY: Continues to void clear, yellow urine. INTEGUMENTARY: Skin is warm and dry with evidence of good perfusion. Right chest thoracic incision well approximated and covered with dry intact dressing. NEUROLOGIC: Cranial nerves II through XII intact. No focal deficits. MUSKULOSKELETAL: Able to move all extremities, strength equal bilaterally, gait normal PSYCHIATRIC: Alert and oriented to person place and time, appropriate affect, intact judgment and insight INVASIVE LINES AND TUBES: Right pleural chest tube present and is to waterseal, intermittent air leak present with coughing. Right pleural chest tube with 10 mL serosanguineous drainage overnight, 70 mL last 24 hours. - Allied health notes Allied health notes reviewed: nursing - Labs CBC & Chem 7: 11/02/23 05:00 11/02/23 05:00 Labs: Abnormal Lab Results - Last 24 Hours (Table) 10/25/23 11/01/23 11/02/23 Range/Units 11:55 13:38 05:00 WBC 12.4 H (3.8-10.6) k/uL RBC 3.44 L (3.80-5.40) m/uL Hgb 10.6 L (11.4-16.0) gm/dL Hct 31.8 L (34.0-46.0) % Neutrophils # 10.0 H (1.3-7.7) k/uL Sodium (137-145) mmol/L Potassium (3.5-5.1) mmol/L Glucose (74-99) mg/dL POC Glucose (mg/dL) 147 H (70-110) mg/dL Crossmatch See Detail 11/02/23 Range/Units 05:00 WBC (3.8-10.6) k/uL RBC (3.80-5.40) m/uL Hgb (11.4-16.0) gm/dL Hct (34.0-46.0) % Neutrophils # (1.3-7.7) k/uL Sodium 135 L (137-145) mmol/L Potassium 3.4 L (3.5-5.1) mmol/L Glucose 168 H (74-99) mg/dL POC Glucose (mg/dL) (70-110) mg/dL Crossmatch - Imaging and Cardiology Chest x-ray: report reviewed, image reviewed Assessment and Plan Assessment: Adenocarcinoma of the lung, with history of a 1.2 cm right upper lobe pulmonary nodule, post op robotic-assisted right upper lobectomy COPD, with a preoperative FEV1 72% of predicted value History of laryngeal cancer, post laryngectomy Hypertension Hyperlipidemia Chronic anxiety and depression History of tobacco dependence Plan: Keep right pleural chest tube in place for another 24 hours to waterseal. Continue to monitor for airleak resolution. Wean oxygen as tolerated. Encourage use of incentive spirometry 10 times every hour while awake. Continue to monitor daily labs and chest x-rays. Increase activity as tolerated. Pain control per current when necessary orders. Toradol added for additional pain control. Medical management and other comorbidities per pulmonology/critical care service Pathology results remain pending, will continue to follow. More recommendations to follow based on patient's clinical course Time with Patient: Greater than 30
[2023-11-03] MEDS: HEPARIN SODIUM,PORCINE 5,000 UNIT/ML 1 ML VIAL SQ SCH ×4 (00:29→23:58)
[2023-11-03] MEDS: KETOROLAC 15 MG/ML 1 ML VIAL IVP SCH ×5 (00:30→23:57)
[2023-11-03] MEDS: HYDROmorphone 0.5 MG/0.5 ML SYRINGE IVP PRN ×2 (02:10→19:55)
[2023-11-03] MEDS: HYDROcodone/APAP 10-325MG 1 EACH TAB PO PRN (04:47)
--- NOTE | 2023-11-03 07:46 | XR ---
EXAMINATION TYPE: XR chest 1V portable DATE OF EXAM: 11/03/2023 Comparison: 11/02/2023 Clinical History: 63-year-old female Postop right upper lobectomy Findings: Heart normal size. Increasing right perihilar density with a convexity marginated edge just adjacent to the right-sided chest tube. Patchy opacity at the left base remains unchanged. No sizable pleural effusion. Impression: 1. Post surgical change on the right with right-sided chest tube in place. There is increasing right perihilar density and an apparent edge adjacent to the chest tube medially. Unable to exclude an unde rlying pneumothorax though lung markings project beyond the edge. Follow-up is recommended. Consider the addition of a lateral view on the follow-up. 2. Similar patchy left basilar atelectasis/infiltrate.
[2023-11-03] MEDS: FORMOTEROL FUMARATE 20 MCG/2 ML NEBU INHALATION SCH ×2 (08:12→20:58)
[2023-11-03] MEDS: IPRATROPIUM-ALBUTEROL 3 ML NEB IH SCH ×4 (08:13→20:58)
[2023-11-03] MEDS: ASPIRIN 81 MG PO SCH (08:20)
[2023-11-03] MEDS: DULoxetine HCL 60 MG CAPSULE.DR PO SCH (08:20)
[2023-11-03] MEDS: hydroCHLOROthiazide 25 MG TAB PO SCH (08:20)
[2023-11-03] MEDS: traMADol 50 MG TAB PO SCH ×4 (08:21→22:01)
[2023-11-03] MEDS: CHOLECALCIFEROL 25 MCG (1000 IU) TABLET PO SCH (08:21)
[2023-11-03] MEDS: ATORVASTATIN 40 MG TAB PO SCH (08:21)
[2023-11-03 08:31] VITALS: RESP 18
[2023-11-03 08:56] LABS: HCT 31.7 % (34.0-46.0); HGB 10.4 gm/dL (11.4-16.0); MCH 30.5 pg (25.0-35.0); MCHC 32.6 g/dL (31.0-37.0); MCV 93.6 fL (80.0-100.0); Mean Platelet Volume 7.5; Platelet Count 263 k/uL (150-450); RBC 3.39 m/uL (3.80-5.40); RDW 13.4 % (11.5-15.5)
[2023-11-03 09:10] LABS: African American GFR (CKD) >90 (>60 ml/min/1.73 sqM); Anion Gap 7 mmol/L; Blood Urea Nitrogen 20 mg/dL (7-17); Carbon Dioxide 30 mmol/L (22-30); Chloride 100 mmol/L (98-107); Glucose 123 mg/dL (74-99); Non-African American GFR(CKD) >90 (>60 ml/min/1.73 sqM); Sodium 137 mmol/L (137-145)
--- NOTE | 2023-11-03 13:34 | XR ---
EXAMINATION TYPE: XR chest 1V portable DATE OF EXAM: 11/03/2023 at 1202 hours Comparison: 11/03/2023 at 0701 hours Clinical History: 63-year-old female chest tube Findings: Post surgical changes right hemithorax with right-sided apically directed chest tube redemonstrated. Subtle edge projecting medial to the chest tube at the right perihilar region with underlying right p erihilar density remains unchanged. Some patchy retrocardiac opacity remains unchanged as well. Impression: 1. Stable exam with right-sided apically directed chest tube and a subtle edge projecting medial to t he chest tube. 2. Postsurgical change right hilum and patchy retrocardiac opacity.
--- NOTE | 2023-11-03 14:46 | P.PN ---
Subjective Progress Note Date: 11/03/23 63-year-old female patient diagnosed in early stage adenocarcinoma of the lung and the patient is presenting in to undergo a surgical resection. The patient underwent a robotic-assisted thoracoscopic right upper lobectomy with intercostal nerve block at 2 different levels. The patient had also missed l ymph node dissection. The patient is currently postop day #0. She has a right- sided chest tube in place which is essentially waterseal. No evidence of any air leak. Output from the chest was minimal at this point in time. The chest x-ray postop shows no evidence of any pneumothorax. The patient is currently on 2 L of oxygen by nasal cannula with a pulse ox of 96%. She is requiring some Dilaudid for pain control. Afebrile. Hemodynamically stable. Awake and alert. Her original lesion was a 1.2 cm right upper lobe pulmonary nodule. This was biopsied and the patient developed a right-sided pneumothorax treated with a thoravent back in 09/28/2023. 11/12/2023, she is doing well. No specific complaints. The chest x-rays showing probably a tiny right apical pneumothorax. Chest tube is in a good location. No evidence of any consolidation. No airspace disease. She does have some intermittent air leak and her chest tubes essentially waterseal. Clinically stable. Hemodynamically stable. Communicating on 2 L of oxygen by nasal cannula. No other significant events overnight. She is postop day number. The patient had labs today that showed a WBC count of 12.4, hemoglobin of 10.6, electrolytes are all within normal limits. The patient will be moved to a medical floor. She is on hydrochlorothiazide for blood pressure control. She is on DuoNeb nebulized treatments. Pain control is with Dilaudid and [place] as needed. on today's evaluation of 11/03/2023, the patient is being seen for a follow-up. The patient is doing well. The patient was transferred also the intensive care unit. The patient is postoperative day #2. The patient has a right-sided chest tube in place. I noted some increase pneumothorax on today's chest x-ray. The patient incentive air leak and the patient is still on waterseal.Based on that, I repeated the chest x-ray and there is a fair sized right-sided pneumothorax. I'm going to discuss this with the cardiothoracic team and patient will likely need to be attached back on wall suction. Currently she is on waterseal. Otherwise, she is doing well. She is hemodynamically stable. She has no other new complaints for now. The white cell count of 13, he was sent 0.4 and a platelet count is at 263, BUN is 20 with a creatinine 0.5 and a sodium level is at 137. She is currently on 2 L of O2 nasal cannula. Objective - Vital Signs Vital signs: Vital Signs Temp 98.9 F 11/03/23 08:14 Pulse 96 11/03/23 11:23 Resp 18 11/03/23 11:23 BP 117/48 11/03/23 11:23 Pulse Ox 97 11/03/23 11:23 FiO2 Intake & Output 11/02/23 11/03/23 11/03/23 18:59 06:59 18:59 Intake Total 1600 200 Output Total 365 630 Balance 1235 -430 Intake: Oral 1600 200 Output: Chest Tube Drainage 0 30 Chest Tube Right Lateral 0 30 Chest Drainage 15 Right Chest 15 Urine 350 600 Other: Voiding Method Bedside Commode Bedside Commode Bedside Commode # Voids 1 1 ABP, PAP, CO, CI - Last Documented Arterial Blood Pressure 119/43 - Exam GENERAL EXAM: Alert, active, pleasant 63-year-old female, on room air, comfortable in no apparent distress. The patient is currently on 2 L of oxygen by nasal cannula HEAD: Normocephalic. EYES: Normal reaction of pupils, equal size. NOSE: Clear with pink turbinates. THROAT: No erythema or exudates. NECK: No masses, no JVD. CHEST: Right sided chest tube is in place. Surgical once is dry clean and intact LUNGS: Equal air entry with no crackles, wheeze, rhonchi or dullness. Diminished. The patient is a right-sided chest tube in place. No evidence of any subcutaneous emphysema. No evidence of any air leak. CVS: S1 and S2 normal with no audible murmur, regular rhythm. ABDOMEN: No hepatosplenomegaly, normal bowel sounds, no guarding or rigidity. SPINE: No scoliosis or deformity SKIN: No rashes CENTRAL NERVOUS SYSTEM: No focal deficits, tone is normal in all 4 extremities. EXTREMITIES: There is no peripheral edema. No clubbing, no cyanosis. Peripheral pulses are intact. - Labs CBC & Chem 7: 11/03/23 07:41 11/03/23 07:41 Labs: Abnormal Lab Results - Last 24 Hours (Table) 10/25/23 11/03/23 11/03/23 Range/Units 11:55 07:41 07:41 WBC 13.0 H (3.8-10.6) k/uL RBC 3.39 L (3.80-5.40) m/uL Hgb 10.4 L (11.4-16.0) gm/dL Hct 31.7 L (34.0-46.0) % BUN 20 H (7-17) mg/dL Glucose 123 H (74-99) mg/dL Crossmatch See Detail Assessment and Plan Plan: Robotic-assisted right upper lobectomy with mediastinal lymph node dissection. The patient's postop day #2 , CXR showing a right-sided pneumothorax and intermittent air leak in the right-sided chest tube is attached to waterseal Adenocarcinoma of the lung, early stage with a 1.2 cm right upper lobe pulmonary nodule, post robotic a bronchoscopy that was done on 09/28/2023 COPD, mild with an FEV1 of 72% of predicted, maintain on Trelegy Ellipta on an outpatient basis History of laryngeal cancer post laryngectomy History of smoking Hyperlipidemia Chronic anxiety/depression Hypertension maintain on hydrochlorothiazide on outpatient basis Plan review of the chest x-ray Recommended patching the chest tube to suction at -20 Repeat chest x-ray following that Clinically stable and hemodynamically stable Provide incentive spirometer Aggressive pulmonary toileting Daily chest x-rays Pain control with Dilaudid. The patient was also ordered [place] for pain control Resume all medication including heparin subcu portably prophylaxis
--- NOTE | 2023-11-03 15:31 | P.PN ---
Subjective Progress Note Date: 11/03/23 Principal diagnosis: Adenocarcinoma of the lung, with a history of 1.2 cm right upper lobe pulmonary nodule. Past medical history significant for COPD, with a preoperative FEV1 72% of predicted value, history of laryngeal cancer post-laryngectomy, hypertension, hyperlipidemia, chronic anxiety and depression, and history of nicotine dependence. POD #2 bronchoscopy, robotic assisted thoracoscopic surgery with right upper lobectomy, intercostal nerve block2 levels, mediastinal lymph node dissection. The patient was seen and examined in follow-up today 11/03/2023 at her bedside on the third for cardiac stepdown unit. She is currently sitting up to the bedside chair, is awake, alert, oriented 3 in no acute distress. Oxygen saturations are 97% on 2 L nasal cannula and she is achieving 750 mL on her incentive spirometry. Right pleural chest tube remains in place to water seal with intermittent air leak present with coughing. The chest tube is draining thin serosanguineous drainage with 30 mL output in the last 24 hours. Remote telemetry showing normal sinus rhythm heart rate 83 BPM. Laboratory and chest x-ray results reviewed. Objective - Vital Signs Vital signs: Vital Signs Temp 98.9 F 11/03/23 08:14 Pulse 96 11/03/23 13:18 Resp 18 11/03/23 13:18 BP 117/48 11/03/23 11:23 Pulse Ox 97 11/03/23 11:23 FiO2 Intake & Output 11/02/23 11/03/23 11/03/23 18:59 06:59 18:59 Intake Total 1600 200 Output Total 365 630 Balance 1235 -430 Intake: Oral 1600 200 Output: Chest Tube Drainage 0 30 Chest Tube Right Lateral 0 30 Chest Drainage 15 Right Chest 15 Urine 350 600 Other: Voiding Method Bedside Commode Bedside Commode Bedside Commode # Voids 1 1 ABP, PAP, CO, CI - Last Documented Arterial Blood Pressure 119/43 - Exam CONSTITUTIONAL: Appears comfortable, cooperative, no acute distress RESPIRATORY: Lungs sounds diminished bilaterally. Respirations are symmetrical, nonlabored. Currently on 2 L nasal cannula with oxygen saturation 97%. Able to achieve 750 mL on incentive spirometry. Strong cough. CARDIOVASCULAR: S1, S2 present. Regular rate and rhythm, sinus rhythm on telemetry. Palpable peripheral pulses bilaterally. No edema present. No calf pain or tenderness noted. SCDs present. GASTROINTESTINAL: Abdomen soft, nontender, nondistended. Active bowel sounds present 4 quadrants. Tolerating diet. Positive bowel movement. GENITOURINARY: Continues to void clear, yellow urine. INTEGUMENTARY: Skin is warm and dry with evidence of good perfusion. Right chest thoracic incision well approximated and covered with dry intact dressing. NEUROLOGIC: Cranial nerves II through XII intact. No focal deficits. MUSKULOSKELETAL: Able to move all extremities, strength equal bilaterally, gait normal PSYCHIATRIC: Alert and oriented to person place and time, appropriate affect, intact judgment and insight INVASIVE LINES AND TUBES: Right pleural chest tube present and is to waterseal, intermittent air leak present with coughing. Right pleural chest tube with 30 mL of thin serosanguineous drainage in the last 24 hours. - Allied health notes Allied health notes reviewed: nursing - Labs CBC & Chem 7: 11/03/23 07:41 11/03/23 07:41 Labs: Abnormal Lab Results - Last 24 Hours (Table) 10/25/23 11/03/23 11/03/23 Range/Units 11:55 07:41 07:41 WBC 13.0 H (3.8-10.6) k/uL RBC 3.39 L (3.80-5.40) m/uL Hgb 10.4 L (11.4-16.0) gm/dL Hct 31.7 L (34.0-46.0) % BUN 20 H (7-17) mg/dL Glucose 123 H (74-99) mg/dL Crossmatch See Detail - Imaging and Cardiology Chest x-ray: report reviewed, image reviewed Assessment and Plan Assessment: Adenocarcinoma of the lung, with history of a 1.2 cm right upper lobe pulmonary nodule, post op robotic-assisted right upper lobectomy COPD, with a preoperative FEV1 72% of predicted value History of laryngeal cancer, post laryngectomy Hypertension Hyperlipidemia Chronic anxiety and depression History of tobacco dependence Plan: Keep right pleural chest tube in place, we will place the chest tube back to low continuous wall suction -20 cm H2O. Continue to monitor for airleak resolution. Wean oxygen as tolerated. Encourage use of incentive spirometry 10 times every hour while awake. Continue to monitor daily labs and chest x-rays. Increase activity as tolerated. Out of bed for all meals. Pain control per current when necessary orders. Medical management and other comorbidities per pulmonology/critical care service Pathology results remain pending, will continue to follow. More recommendations to follow based on patient's clinical course Time with Patient: Less than 30
[2023-11-04] MEDS: KETOROLAC 15 MG/ML 1 ML VIAL IVP SCH ×4 (05:26→23:03)
--- NOTE | 2023-11-04 07:53 | XR ---
EXAMINATION TYPE: XR chest 1V portable DATE OF EXAM: 11/04/2023 Comparison: 11/03/2023 Clinical History: 63-year-old female s/p right upper lobectomy Findings: Right apical chest tube is present. The previously described convexly marginated and located medial t o the chest tube is becoming less defined and may reflect postsurgical change. No appreciable pneumot horax on the present exam. Unchanged postsurgical change and focal rate hilar opacity. Some patchy re trocardiac opacity remains. Impression: The previously described edge located medial to the right-sided chest tube has become less defined an d may reflect some postsurgical change. No convincing pneumothorax is seen. Post surgical change right hilum. Some patchy retrocardiac opacity remains.
[2023-11-04] MEDS: ATORVASTATIN 40 MG TAB PO SCH (08:26)
[2023-11-04] MEDS: DULoxetine HCL 60 MG CAPSULE.DR PO SCH (08:26)
[2023-11-04] MEDS: ASPIRIN 81 MG PO SCH (08:26)
[2023-11-04] MEDS: hydroCHLOROthiazide 25 MG TAB PO SCH (08:26)
[2023-11-04] MEDS: CHOLECALCIFEROL 25 MCG (1000 IU) TABLET PO SCH (08:26)
[2023-11-04] MEDS: traMADol 50 MG TAB PO SCH ×4 (08:26→23:04)
[2023-11-04] MEDS: HEPARIN SODIUM,PORCINE 5,000 UNIT/ML 1 ML VIAL SQ SCH ×3 (08:27→23:03)
[2023-11-04] MEDS: FORMOTEROL FUMARATE 20 MCG/2 ML NEBU INHALATION SCH ×2 (08:58→18:06)
[2023-11-04] MEDS: IPRATROPIUM-ALBUTEROL 3 ML NEB IH SCH ×4 (08:58→18:02)
--- NOTE | 2023-11-04 14:25 | P.PN ---
Subjective Progress Note Date: 11/04/23 63-year-old female patient diagnosed in early stage adenocarcinoma of the lung and the patient is presenting in to undergo a surgical resection. The patient underwent a robotic-assisted thoracoscopic right upper lobectomy with intercostal nerve block at 2 different levels. The patient had also missed l ymph node dissection. The patient is currently postop day #0. She has a right- sided chest tube in place which is essentially waterseal. No evidence of any air leak. Output from the chest was minimal at this point in time. The chest x-ray postop shows no evidence of any pneumothorax. The patient is currently on 2 L of oxygen by nasal cannula with a pulse ox of 96%. She is requiring some Dilaudid for pain control. Afebrile. Hemodynamically stable. Awake and alert. Her original lesion was a 1.2 cm right upper lobe pulmonary nodule. This was biopsied and the patient developed a right-sided pneumothorax treated with a thoravent back in 09/28/2023. 11/12/2023, she is doing well. No specific complaints. The chest x-rays showing probably a tiny right apical pneumothorax. Chest tube is in a good location. No evidence of any consolidation. No airspace disease. She does have some intermittent air leak and her chest tubes essentially waterseal. Clinically stable. Hemodynamically stable. Communicating on 2 L of oxygen by nasal cannula. No other significant events overnight. She is postop day number. The patient had labs today that showed a WBC count of 12.4, hemoglobin of 10.6, electrolytes are all within normal limits. The patient will be moved to a medical floor. She is on hydrochlorothiazide for blood pressure control. She is on DuoNeb nebulized treatments. Pain control is with Dilaudid and [place] as needed. on today's evaluation of 11/03/2023, the patient is being seen for a follow-up. The patient is doing well. The patient was transferred also the intensive care unit. The patient is postoperative day #2. The patient has a right-sided chest tube in place. I noted some increase pneumothorax on today's chest x-ray. The patient incentive air leak and the patient is still on waterseal.Based on that, I repeated the chest x-ray and there is a fair sized right-sided pneumothorax. I'm going to discuss this with the cardiothoracic team and patient will likely need to be attached back on wall suction. Currently she is on waterseal. Otherwise, she is doing well. She is hemodynamically stable. She has no other new complaints for now. The white cell count of 13, he was sent 0.4 and a platelet count is at 263, BUN is 20 with a creatinine 0.5 and a sodium level is at 137. She is currently on 2 L of O2 nasal cannula. On 11/04/2023, the patient is doing well. No specific complaints. The pain is under better control and the surgical one-sided. The repeat chest x-ray from today shows no convincing evidence of pneumothorax. The chest was attached to waterseal. The patient continues to have some intermittent air leak. Otherwise, she is clinically stable hemodynamically stable. No nausea. No emesis patient continues to use incentive spirometer. She is postop day #3. Objective - Vital Signs Vital signs: Vital Signs Temp 97.7 F 11/03/23 20:00 Pulse 82 11/04/23 11:45 Resp 18 11/04/23 11:33 BP 118/66 11/04/23 11:33 Pulse Ox 96 11/04/23 11:33 FiO2 Intake & Output 11/03/23 11/04/23 11/04/23 18:59 06:59 18:59 Intake Total 236 444 Output Total 50 20 Balance 186 444 -20 Intake: Oral 236 444 Output: Chest Tube Drainage 20 Chest Tube Right Lateral 20 Chest Drainage 50 Right Chest 50 Other: Voiding Method Bedside Commode Bedside Commode Bedside Commode # Voids 1 1 ABP, PAP, CO, CI - Last Documented Arterial Blood Pressure 119/43 - Exam GENERAL EXAM: Alert, active, pleasant 63-year-old female, on room air, comfortable in no apparent distress. The patient is currently on 2 L of oxygen by nasal cannula HEAD: Normocephalic. EYES: Normal reaction of pupils, equal size. NOSE: Clear with pink turbinates. THROAT: No erythema or exudates. NECK: No masses, no JVD. CHEST: Right sided chest tube is in place. Surgical once is dry clean and intact LUNGS: Equal air entry with no crackles, wheeze, rhonchi or dullness. Diminished. The patient is a right-sided chest tube in place. No evidence of any subcutaneous emphysema. No evidence of any air leak. CVS: S1 and S2 normal with no audible murmur, regular rhythm. ABDOMEN: No hepatosplenomegaly, normal bowel sounds, no guarding or rigidity. SPINE: No scoliosis or deformity SKIN: No rashes CENTRAL NERVOUS SYSTEM: No focal deficits, tone is normal in all 4 extremities. EXTREMITIES: There is no peripheral edema. No clubbing, no cyanosis. Peripheral pulses are intact. - Labs CBC & Chem 7: 11/03/23 07:41 11/03/23 07:41 Assessment and Plan Plan: Robotic-assisted right upper lobectomy with mediastinal lymph node dissection. The patient's postop day # 3, CXR showing no evidence of any pneumothorax on today's evaluation. The chest tube will be attached to waterseal. Adenocarcinoma of the lung, early stage with a 1.2 cm right upper lobe pulmonary nodule, post robotic a bronchoscopy that was done on 09/28/2023 COPD, mild with an FEV1 of 72% of predicted, maintain on Trelegy Ellipta on an outpatient basis History of laryngeal cancer post laryngectomy History of smoking Hyperlipidemia Chronic anxiety/depression Hypertension maintain on hydrochlorothiazide on outpatient basis Plan review of the chest x-ray shows no evidence of any pneumothorax Chest tube to waterseal Intermittent air leak still present Follow-up chest x-ray in the morning Clinically stable and hemodynamically stable Provide incentive spirometer Aggressive pulmonary toileting Daily chest x-rays Pain control with Dilaudid. The patient was also ordered [place] for pain control Resume all medication including heparin subcu portably prophylaxis
--- NOTE | 2023-11-04 14:31 | P.PN ---
Subjective Progress Note Date: 11/04/23 Principal diagnosis: Adenocarcinoma of the lung, with a history of 1.2 cm right upper lobe pulmonary nodule. Past medical history significant for COPD, with a preoperative FEV1 72% of predicted value, history of laryngeal cancer post-laryngectomy, hypertension, hyperlipidemia, chronic anxiety and depression, and history of nicotine dependence. POD #3 bronchoscopy, robotic assisted thoracoscopic surgery with right upper lobectomy, intercostal nerve block2 levels, mediastinal lymph node dissection. The patient was seen and examined in follow-up today 11/04/2023 at her bedside on the third for cardiac stepdown unit. Patient is currently lying in bed, is awake, alert, oriented 3 and is in no acute apparent distress. Continues to complain of some surgical type pain to her right chest tube insertion site, currently rating her pain 5 out of 10 on the pain scale. She denies any complaints of shortness of breath at this time. She has been afebrile the last 24 hours. Oxygen saturations are 96% on 2 L nasal cannula and she is achieving 750 on her incentive spirometry with encouragement. Remote telemetry showing normal sinus rhythm heart rate 77 BPM. She remains hemodynamically stable and is currently on no inotropic pressor support. Right pleural chest tube remains in place with 50 mL of thin serosanguineous drainage in the last 24 hours. Her chest tube remains to low continuous wall suction -20 cm H2O. Tiny intermittent air leak present with coughing. Chest x-ray was reviewed. Objective - Vital Signs Vital signs: Vital Signs Temp 97.7 F 11/03/23 20:00 Pulse 89 11/04/23 04:00 Resp 18 11/04/23 04:00 BP 132/60 11/04/23 04:00 Pulse Ox 96 11/04/23 04:00 FiO2 Intake & Output 11/03/23 11/04/23 11/04/23 18:59 06:59 18:59 Intake Total 236 444 Output Total 50 20 Balance 186 444 -20 Intake: Oral 236 444 Output: Chest Tube Drainage 20 Chest Tube Right Lateral 20 Chest Drainage 50 Right Chest 50 Other: Voiding Method Bedside Commode Bedside Commode # Voids 1 1 ABP, PAP, CO, CI - Last Documented Arterial Blood Pressure 119/43 - Exam CONSTITUTIONAL: Appears comfortable, cooperative, no acute distress RESPIRATORY: Lungs sounds diminished bilaterally. Respirations are symmetrical, nonlabored. Currently on 2 L nasal cannula with oxygen saturation 96%. Able to achieve 750 mL on incentive spirometry. Strong cough. CARDIOVASCULAR: S1, S2 present. Regular rate and rhythm, sinus rhythm on telemetry, heart rate 77 BPM. Palpable peripheral pulses bilaterally. No edema present. No calf pain or tenderness noted. SCDs present. GASTROINTESTINAL: Abdomen soft, nontender, nondistended. Active bowel sounds present 4 quadrants. Tolerating diet. Positive bowel movement. GENITOURINARY: Continues to void clear, yellow urine. INTEGUMENTARY: Skin is warm and dry with evidence of good perfusion. Right chest thoracic incision well approximated and covered with dry intact dressing. NEUROLOGIC: Cranial nerves II through XII intact. No focal deficits. MUSKULOSKELETAL: Able to move all extremities, strength equal bilaterally, gait normal PSYCHIATRIC: Alert and oriented to person place and time, appropriate affect, intact judgment and insight INVASIVE LINES AND TUBES: Right pleural chest tube present and is to low continuous wall suction -20 cm H2O, intermittent air leak present with coughing. Right pleural chest tube with 50 mL of thin serosanguineous drainage in the last 24 hours. - Allied health notes Allied health notes reviewed: nursing - Labs CBC & Chem 7: 11/03/23 07:41 11/03/23 07:41 Labs: Abnormal Lab Results - Last 24 Hours (Table) 11/03/23 11/03/23 Range/Units 07:41 07:41 WBC 13.0 H (3.8-10.6) k/uL RBC 3.39 L (3.80-5.40) m/uL Hgb 10.4 L (11.4-16.0) gm/dL Hct 31.7 L (34.0-46.0) % BUN 20 H (7-17) mg/dL Glucose 123 H (74-99) mg/dL - Imaging and Cardiology Chest x-ray: report reviewed, image reviewed Assessment and Plan Assessment: Adenocarcinoma of the lung, with history of a 1.2 cm right upper lobe pulmonary nodule, post op robotic-assisted right upper lobectomy COPD, with a preoperative FEV1 72% of predicted value History of laryngeal cancer, post laryngectomy Hypertension Hyperlipidemia Chronic anxiety and depression History of tobacco dependence Plan: Keep right pleural chest tube in place, place chest tube to waterseal. Continue to monitor for airleak resolution. Wean oxygen as tolerated. Encourage use of incentive spirometry 10 times every hour while awake. Continue to monitor daily labs and chest x-rays. Increase activity as tolerated. Out of bed for all meals. Pain control per current when necessary orders. Medical management and other comorbidities per pulmonology/critical care service Pathology results remain pending, will continue to follow. More recommendations to follow based on patient's clinical course Time with Patient: Less than 30
[2023-11-04] MEDS: HYDROmorphone 0.5 MG/0.5 ML SYRINGE IVP PRN (20:25)
[2023-11-04 22:03] VITALS: TEMP 98.1
[2023-11-05] MEDS: KETOROLAC 15 MG/ML 1 ML VIAL IVP SCH ×3 (06:04→17:42)
[2023-11-05] MEDS: FORMOTEROL FUMARATE 20 MCG/2 ML NEBU INHALATION SCH ×2 (08:34→20:26)
[2023-11-05] MEDS: IPRATROPIUM-ALBUTEROL 3 ML NEB IH SCH ×4 (08:34→20:26)
[2023-11-05] MEDS: ATORVASTATIN 40 MG TAB PO SCH (09:02)
[2023-11-05] MEDS: ASPIRIN 81 MG PO SCH (09:02)
[2023-11-05] MEDS: traMADol 50 MG TAB PO SCH ×4 (09:02→21:08)
[2023-11-05] MEDS: CHOLECALCIFEROL 25 MCG (1000 IU) TABLET PO SCH (09:03)
[2023-11-05] MEDS: DULoxetine HCL 60 MG CAPSULE.DR PO SCH (09:03)
[2023-11-05] MEDS: HEPARIN SODIUM,PORCINE 5,000 UNIT/ML 1 ML VIAL SQ SCH ×2 (09:03→17:42)
[2023-11-05] MEDS: hydroCHLOROthiazide 25 MG TAB PO SCH (09:03)
[2023-11-05] MEDS ORDERED: FUROSEMIDE 10 MG/ML 2 ML VIAL IV STA (09:32)
[2023-11-05] MEDS ORDERED: POTASSIUM CHLORIDE ER 10 MEQ TAB.ER.PRT PO STA (09:32)
[2023-11-05 10:01] LABS: HCT 32.2 % (34.0-46.0); HGB 10.5 gm/dL (11.4-16.0); MCH 30.5 pg (25.0-35.0); MCHC 32.7 g/dL (31.0-37.0); MCV 93.1 fL (80.0-100.0); Platelet Count 289 k/uL (150-450); RBC 3.46 m/uL (3.80-5.40); RDW 13.4 % (11.5-15.5); WBC 10.4 k/uL (3.8-10.6)
--- NOTE | 2023-11-05 10:22 | XR ---
EXAMINATION TYPE: XR chest 1V portable DATE OF EXAM: 11/05/2023 Comparison: 11/04/2023 Clinical History: 63-year-old female Status post right upper lobectomy Findings: Right-sided chest tube in place. There is trace right-sided pneumothorax noted measuring 3 mm elongat ed lateral aspect of the upper lung. Slight increasing right perihilar opacity. Heart normal size. No pleural effusion. Impression: Right-sided chest tube in place. Visualization of a trace 3 mm pneumothorax now. Postsurgical change of the right hilum. Opacity here appears to be increasing. Etiology is unclear. Follow-up recommended .
[2023-11-05 10:41] LABS: African American GFR (CKD) >90 (>60 ml/min/1.73 sqM); Anion Gap 8 mmol/L; Blood Urea Nitrogen 20 mg/dL (7-17); Calcium 9.2 mg/dL (8.4-10.2); Carbon Dioxide 34 mmol/L (22-30); Chloride 95 mmol/L (98-107); Glucose 116 mg/dL (74-99); Non-African American GFR(CKD) >90 (>60 ml/min/1.73 sqM); Potassium 3.9 mmol/L (3.5-5.1); Sodium 137 mmol/L (137-145)
--- NOTE | 2023-11-05 12:12 | P.PN ---
Subjective Progress Note Date: 11/05/23 63-year-old female patient diagnosed in early stage adenocarcinoma of the lung and the patient is presenting in to undergo a surgical resection. The patient underwent a robotic-assisted thoracoscopic right upper lobectomy with intercostal nerve block at 2 different levels. The patient had also missed l ymph node dissection. The patient is currently postop day #0. She has a right- sided chest tube in place which is essentially waterseal. No evidence of any air leak. Output from the chest was minimal at this point in time. The chest x-ray postop shows no evidence of any pneumothorax. The patient is currently on 2 L of oxygen by nasal cannula with a pulse ox of 96%. She is requiring some Dilaudid for pain control. Afebrile. Hemodynamically stable. Awake and alert. Her original lesion was a 1.2 cm right upper lobe pulmonary nodule. This was biopsied and the patient developed a right-sided pneumothorax treated with a thoravent back in 09/28/2023. 11/12/2023, she is doing well. No specific complaints. The chest x-rays showing probably a tiny right apical pneumothorax. Chest tube is in a good location. No evidence of any consolidation. No airspace disease. She does have some intermittent air leak and her chest tubes essentially waterseal. Clinically stable. Hemodynamically stable. Communicating on 2 L of oxygen by nasal cannula. No other significant events overnight. She is postop day number. The patient had labs today that showed a WBC count of 12.4, hemoglobin of 10.6, electrolytes are all within normal limits. The patient will be moved to a medical floor. She is on hydrochlorothiazide for blood pressure control. She is on DuoNeb nebulized treatments. Pain control is with Dilaudid and [place] as needed. on today's evaluation of 11/03/2023, the patient is being seen for a follow-up. The patient is doing well. The patient was transferred also the intensive care unit. The patient is postoperative day #2. The patient has a right-sided chest tube in place. I noted some increase pneumothorax on today's chest x-ray. The patient incentive air leak and the patient is still on waterseal.Based on that, I repeated the chest x-ray and there is a fair sized right-sided pneumothorax. I'm going to discuss this with the cardiothoracic team and patient will likely need to be attached back on wall suction. Currently she is on waterseal. Otherwise, she is doing well. She is hemodynamically stable. She has no other new complaints for now. The white cell count of 13, he was sent 0.4 and a platelet count is at 263, BUN is 20 with a creatinine 0.5 and a sodium level is at 137. She is currently on 2 L of O2 nasal cannula. On 11/04/2023, the patient is doing well. No specific complaints. The pain is under better control and the surgical one-sided. The repeat chest x-ray from today shows no convincing evidence of pneumothorax. The chest was attached to waterseal. The patient continues to have some intermittent air leak. Otherwise, she is clinically stable hemodynamically stable. No nausea. No emesis patient continues to use incentive spirometer. She is postop day #3. On 11/05/2020, the patient's postop day #4. Continues to have some limited intermittent air leak and the chest x-ray from today shows that the right-sided chest tube in place. Questionable right apical pneumothorax. Opacity in the right lung base probably atelectasis. No signs of any acute pneumonia. White cell cause of 10.4 with a hemoglobin of 10.5. BUN is at 20 with a creatinine of 0.6. Sodium is at 137. He's on 2 L of O2 nasal cannula. Objective - Vital Signs Vital signs: Vital Signs Temp 98.1 F 11/04/23 20:00 Pulse 85 11/05/23 09:01 Resp 18 11/05/23 04:00 BP 146/60 11/05/23 04:00 Pulse Ox 87 L 11/05/23 08:34 FiO2 Intake & Output 11/04/23 11/05/23 11/05/23 18:59 06:59 18:59 Intake Total 478 540 Output Total 20 0 0 Balance 458 540 0 Weight 75.1 kg Intake: Oral 478 540 Output: Chest Tube Drainage 20 0 0 Chest Tube Right Lateral 20 0 0 Chest Other: Voiding Method Bedside Commode Bedside Commode # Voids 1 2 1 ABP, PAP, CO, CI - Last Documented Arterial Blood Pressure 119/43 - Exam GENERAL EXAM: Alert, active, pleasant 63-year-old female, on room air, com fortable in no apparent distress. The patient is currently on 2 L of oxygen by nasal cannula HEAD: Normocephalic. EYES: Normal reaction of pupils, equal size. NOSE: Clear with pink turbinates. THROAT: No erythema or exudates. NECK: No masses, no JVD. CHEST: Right sided chest tube is in place. Surgical once is dry clean and intact LUNGS: Equal air entry with no crackles, wheeze, rhonchi or dullness. Diminished. The patient is a right-sided chest tube in place. No evidence of any subcutaneous emphysema. No evidence of any air leak. CVS: S1 and S2 normal with no audible murmur, regular rhythm. ABDOMEN: No hepatosplenomegaly, normal bowel sounds, no guarding or rigidity. SPINE: No scoliosis or deformity SKIN: No rashes CENTRAL NERVOUS SYSTEM: No focal deficits, tone is normal in all 4 extremities. EXTREMITIES: There is no peripheral edema. No clubbing, no cyanosis. Peripheral pulses are intact. - Labs CBC & Chem 7: 11/05/23 09:06 11/05/23 09:06 Labs: Abnormal Lab Results - Last 24 Hours (Table) 11/05/23 Range/Units 09:06 RBC 3.46 L (3.80-5.40) m/uL Hgb 10.5 L (11.4-16.0) gm/dL Hct 32.2 L (34.0-46.0) % Assessment and Plan Plan: Robotic-assisted right upper lobectomy with mediastinal lymph node dissection. The patient's postop day # 4, CXR showing no evidence of any pneumothorax on today's evaluation. The chest tube will be attached to waterseal. Adenocarcinoma of the lung, early stage with a 1.2 cm right upper lobe pulmonary nodule, post robotic a bronchoscopy that was done on 09/28/2023 COPD, mild with an FEV1 of 72% of predicted, maintain on Trelegy Ellipta on an outpatient basis History of laryngeal cancer post laryngectomy History of smoking Hyperlipidemia Chronic anxiety/depression Hypertension maintain on hydrochlorothiazide on outpatient basis Plan Monitor air leak review of the chest x-ray shows no evidence of any pneumothorax Chest tube to waterseal Intermittent air leak still present, very intermittent Follow-up chest x-ray in the morning Clinically stable and hemodynamically stable Provide incentive spirometer Aggressive pulmonary toileting Daily chest x-rays Pain control with Dilaudid. The patient was also ordered [place] for pain control Resume all medication including heparin subcu portably prophylaxis
--- NOTE | 2023-11-05 12:22 | P.PN ---
Subjective Progress Note Date: 11/05/23 Principal diagnosis: Adenocarcinoma of the lung, with a history of 1.2 cm right upper lobe pulmonary nodule. Past medical history significant for COPD, with a preoperative FEV1 72% of predicted value, history of laryngeal cancer post-laryngectomy, hypertension, hyperlipidemia, chronic anxiety and depression, and history of nicotine dependence. POD #4 bronchoscopy, robotic assisted thoracoscopic surgery with right upper lobectomy, intercostal nerve block2 levels, mediastinal lymph node dissection. The patient was seen and examined in follow-up today 11/05/2023 at her bedside on the third for cardiac stepdown unit. Patient is currently sitting up to bedside chair, is awake, alert, oriented 3 and is in no acute apparent distress. Continues to complain of some surgical type pain to her right chest tube insertion site, currently rating her pain 3 out of 10 on the pain scale. She denies any complaints of shortness of breath at this time. The patient has been up ambulating in the cardiac stepdown unit hallway 3 times yesterday with assistance from nursing staff and tolerated well. She has been ambulating to the bathroom without difficulty. She has been afebrile the last 24 hours. Oxygen saturations are 98% on 2 L nasal cannula and she is achieving 750 on her incentive spirometry with encouragement. Remote telemetry showing normal sinus rhythm heart rate 75 BPM. She remains hemodynamically stable and is currently on no inotropic pressor support. Right pleural chest tube remains in place with 30 mL of thin serosanguineous drainage in the last 24 hours. Her chest tube remains to water seal Tiny intermittent air leak present with coughing. Chest x-ray was reviewed. Objective - Vital Signs Vital signs: Vital Signs Temp 98.1 F 11/04/23 20:00 Pulse 80 11/05/23 11:57 Resp 18 11/05/23 11:18 BP 146/70 11/05/23 08:00 Pulse Ox 87 L 11/05/23 08:34 FiO2 Intake & Output 11/04/23 11/05/23 11/05/23 18:59 06:59 18:59 Intake Total 478 540 118 Output Total 20 0 0 Balance 458 540 118 Weight 75.1 kg Intake: Oral 478 540 118 Output: Chest Tube Drainage 20 0 0 Chest Tube Right Lateral 20 0 0 Chest Other: Voiding Method Bedside Commode Bedside Commode Bedside Commode # Voids 1 2 1 ABP, PAP, CO, CI - Last Documented Arterial Blood Pressure 119/43 - Exam CONSTITUTIONAL: Appears comfortable, cooperative, no acute distress RESPIRATORY: Lungs sounds diminished bilaterally. Respirations are symmetrical, nonlabored. Currently on 2 L nasal cannula with oxygen saturation 98%. Able to achieve 750 mL on incentive spirometry. Strong cough. CARDIOVASCULAR: S1, S2 present. Regular rate and rhythm, sinus rhythm on telemetry, heart rate 75 BPM. Palpable peripheral pulses bilaterally. No edema present. No calf pain or tenderness noted. SCDs present. GASTROINTESTINAL: Abdomen soft, nontender, nondistended. Active bowel sounds present 4 quadrants. Tolerating diet. GENITOURINARY: Continues to void clear, yellow urine. INTEGUMENTARY: Skin is warm and dry with evidence of good perfusion. Right chest thoracic incision well approximated and covered with dry intact dressing. NEUROLOGIC: Cranial nerves II through XII intact. No focal deficits. MUSKULOSKELETAL: Able to move all extremities, strength equal bilaterally, gait normal PSYCHIATRIC: Alert and oriented to person place and time, appropriate affect, intact judgment and insight INVASIVE LINES AND TUBES: Right pleural chest tube present and is to waterseal, intermittent air leak present with coughing. Right pleural chest tube with 30 mL of thin serosanguineous drainage in the last 24 hours. - Allied health notes Allied health notes reviewed: nursing - Labs CBC & Chem 7: 11/05/23 09:06 11/05/23 09:06 Labs: Abnormal Lab Results - Last 24 Hours (Table) 11/05/23 11/05/23 Range/Units 09:06 09:06 RBC 3.46 L (3.80-5.40) m/uL Hgb 10.5 L (11.4-16.0) gm/dL Hct 32.2 L (34.0-46.0) % Chloride 95 L (98-107) mmol/L Carbon Dioxide 34 H (22-30) mmol/L BUN 20 H (7-17) mg/dL Glucose 116 H (74-99) mg/dL - Imaging and Cardiology Chest x-ray: report reviewed, image reviewed Assessment and Plan Assessment: Adenocarcinoma of the lung, with history of a 1.2 cm right upper lobe pulmonary nodule, post op robotic-assisted right upper lobectomy COPD, with a preoperative FEV1 72% of predicted value History of laryngeal cancer, post laryngectomy Hypertension Hyperlipidemia Chronic anxiety and depression History of tobacco dependence Plan: Keep right pleural chest tube in place, place chest tube to waterseal. Continue to monitor for airleak resolution. Anticipate removal of chest tube tomorrow 11/06/2023. Wean oxygen as tolerated. Encourage use of incentive spirometry 10 times every hour while awake. Continue to monitor daily labs and chest x-rays. Increase activity as tolerated. Out of bed for all meals. Pain control per current when necessary orders. Medical management and other comorbidities per pulmonology/critical care service Pathology results remain pending, will continue to follow. More recommendations to follow based on patient's clinical course Time with Patient: Less than 30
[2023-11-06] MEDS: KETOROLAC 15 MG/ML 1 ML VIAL IVP SCH ×3 (00:24→12:22)
[2023-11-06] MEDS: HEPARIN SODIUM,PORCINE 5,000 UNIT/ML 1 ML VIAL SQ SCH ×2 (00:24→09:02)
[2023-11-06 07:34] LABS: Basophils % (A) 1 %; Eosinophils # (A) 0.5 k/uL (0-0.7); Eosinophils % (A) 6 %; HCT 31.4 % (34.0-46.0); HGB 10.1 gm/dL (11.4-16.0); Lymphocytes # (A) 1.6 k/uL (1.0-4.8); Lymphocytes % (A) 20 %; MCH 29.9 pg (25.0-35.0); MCHC 32.3 g/dL (31.0-37.0); MCV 92.7 fL (80.0-100.0); Mean Platelet Volume 7.9; Monocytes # (A) 0.6 k/uL (0-1.0); Monocytes % (A) 7 %; Neutrophils # (A) 5.2 k/uL (1.3-7.7); Neutrophils % (A) 64 %; Platelet Count 291 k/uL (150-450); RBC 3.39 m/uL (3.80-5.40); RDW 13.4 % (11.5-15.5); WBC 8.1 k/uL (3.8-10.6)
[2023-11-06 08:25] LABS: African American GFR (CKD) >90 (>60 ml/min/1.73 sqM); Anion Gap 5 mmol/L; Blood Urea Nitrogen 23 mg/dL (7-17); Calcium 8.9 mg/dL (8.4-10.2); Carbon Dioxide 36 mmol/L (22-30); Chloride 96 mmol/L (98-107); Glucose 106 mg/dL (74-99); Non-African American GFR(CKD) 85 (>60 ml/min/1.73 sqM); Potassium 3.7 mmol/L (3.5-5.1); Sodium 137 mmol/L (137-145)
[2023-11-06] MEDS: FORMOTEROL FUMARATE 20 MCG/2 ML NEBU INHALATION SCH (08:53)
[2023-11-06] MEDS: IPRATROPIUM-ALBUTEROL 3 ML NEB IH SCH ×2 (08:53→12:05)
[2023-11-06] MEDS: hydroCHLOROthiazide 25 MG TAB PO SCH (09:02)
[2023-11-06] MEDS: ASPIRIN 81 MG PO SCH (09:02)
[2023-11-06] MEDS: ATORVASTATIN 40 MG TAB PO SCH (09:02)
[2023-11-06] MEDS: DULoxetine HCL 60 MG CAPSULE.DR PO SCH (09:02)
[2023-11-06] MEDS: traMADol 50 MG TAB PO SCH ×2 (09:02→12:23)
[2023-11-06] MEDS: CHOLECALCIFEROL 25 MCG (1000 IU) TABLET PO SCH (09:02)
--- NOTE | 2023-11-06 09:08 | XR ---
EXAMINATION TYPE: XR chest 1V portable DATE OF EXAM: 11/06/2023 Comparison: 11/05/2023 Clinical History: 63-year-old female Status post right upper lobectomy Findings: Right-sided chest tube in place. Postsurgical volume loss redemonstrated right hemithorax. Slightly l arger small right apical pneumothorax now measuring 1.8 cm versus 3 mm, previously. Postsurgical opac ity at the right hilum is unchanged. Some patchy retrocardiac opacity is noted. No sizable pleural ef fusion. Impression: 1. Post surgical volume loss right hemithorax with right-sided chest tube in place. A small right api kylie pneumothorax has enlarged now 1.8 cm versus 3 mm, previously. 2. Stable right hilar opacity, likely postsurgical change. 3. Some patchy retrocardiac atelectasis or early infiltrate has developed.
--- NOTE | 2023-11-06 10:12 | P.DS ---
Providers Date of admission: 11/01/23 06:41 Expected date of discharge: 11/06/23 Attending physician: Александр Mojica MD Consults: 11/01/23 13:39 Consult Physician Routine Consulting Provider: Jose Luis Oconnor Consult Reason/Comments: Pulmonary management Do you want consulting provider notified?: Yes Primary care physician: Raza Nielsen [facility] Course: FINAL DIAGNOSIS: Adenocarcinoma of the lung, with history of a 1.2 cm right upper lobe pulmonary nodule, post op robotic-assisted right upper lobectomy, surgical pathology remains pending COPD, with a preoperative FEV1 72% of predicted value History of laryngeal cancer, post laryngectomy Hypertension Hyperlipidemia Chronic anxiety and depression History of tobacco dependence, quit around 1 month ago PRINCIPAL PROCEDURE: 1. Bronchoscopy 2. Right robotic assisted thorascopic surgery with right upper lobectomy 3 .Intercostal nerve block - 2 levels 4. Mediastinal lymph node dissection HISTORY OF PRESENT ILLNESS: This is a 63-year-old female patient who follows on an outpatient basis with Dr. Raza Nielsen for her primary care and what Dr. Oconnor for her pulmonary care. Due to the patient's history of smoking she underwent a lung cancer screening CT in July 2023 which revealed a new 1.1 cm lung nodule in the right upper lobe. Subsequently she was referred to Dr. Oconnor from pulmonary medicine and the patient underwent a PET/computed tomography scan which revealed an SUV of 10.8 without metastatic disease and a negative mediastinum. For further evaluation she underwent a robotic-assisted biopsy of the right upper lobe nodule which revealed adenocarcinoma. Unfortunately after the biopsy the patient developed a right pneumothorax which was managed with a right Thoravent. Due to the findings of a right upper lobe nodule and adenocarcinoma she was referred to Dr. Александр Mojica from cardiothoracic surgery for further evaluation and treatment recommendations. Treatment options were discussed with the patient including right robotic assisted thoracoscopic surgery with right upper lobectomy. Risks and benefits of surgery were discussed with the patient by Dr. Mojica and knowing and understanding the risks the patient wishes to proceed with the surgical option. HOSPITAL COURSE: The patient was brought to the hospital on 11/01/2023, taken to the preoperative area, prepared in the usual fashion and subsequently taken to the operating room where Dr. Mojica performed a bronchoscopy, right robotic assisted thoracoscopic surgery with right upper lobectomy, mediastinal lymph node dissection and intercostal nerve block 2 levels. Upon completion of the surgery the patient was extubated and taken to the recovery room for further monitoring and rehabilitation. She was eventually admitted to the intensive care unit where she continued to be recovered and monitored. She was eventually transferred to the third floor cardiac stepdown unit. Her chest tube was discontinued uneventfully on postoperative day #4, her oxygen was titrated down, she continued to work with her incentive spirometry, she was up ambulating in the cardiac step unit hallway with standby assistance from nursing staff and tolerating well, she was tolerating an oral diet, her pain was well-controlled and she was ready be discharged home on postoperative day #4. She has received written and verbal instructions regarding her medications, activity restrictions, signs and symptoms requiring physician notification and her follow-up appointments. Plan - Discharge Summary Discharge Rx Participant: Yes New Discharge Prescriptions: No Action hydroCHLOROthiazide 25 mg PO DAILY HYDROcodone/APAP 10-325MG [[place] 10-325] 1 tab PO Q6H PRN PRN Reason: Pain Atorvastatin [Lipitor] 40 mg PO DAILY DULoxetine HCL [Cymbalta] 60 mg PO DAILY Nicotine 21Mg/24Hr Patch [Habitrol] 1 patch TRANSDERM DAILY #14 patch Ubidecarenone [Co Q-10] 200 mg PO DAILY Aspirin [[place] Aspirin EC] 81 mg PO DAILY Fluticasone/Umeclidin/Vilanter [Trelegy Ellipta 100-62.5-25] 1 inhalation INHALATION DAILY Cholecalciferol [Vitamin D3 (25 Mcg = 1000 Iu)] 50 mcg PO DAILY Discharge Medication List HYDROcodone/APAP 10-325MG [[place] 10-325] 1 tab PO Q6H PRN 01/19/23 [History] hydroCHLOROthiazide 25 mg PO DAILY 01/19/23 [History] Aspirin [[place] Aspirin EC] 81 mg PO DAILY 09/27/23 [History] Atorvastatin [Lipitor] 40 mg PO DAILY 09/27/23 [History] DULoxetine HCL [Cymbalta] 60 mg PO DAILY 09/27/23 [History] Nicotine 21Mg/24Hr Patch [Habitrol] 1 patch TRANSDERM DAILY #14 patch 09/30/23 [Rx] Cholecalciferol [Vitamin D3 (25 Mcg = 1000 Iu)] 50 mcg PO DAILY 10/24/23 [History] Fluticasone/Umeclidin/Vilanter [Trelegy Ellipta 100-62.5-25] 1 inhalation INHALATION DAILY 10/24/23 [History] Ubidecarenone [Co Q-10] 200 mg PO DAILY 10/24/23 [History] Follow up Appointment(s)/Referral(s): Raza Nielsen MD [Primary Care Provider] - As Needed Александр Mojica MD [STAFF PHYSICIAN] - 11/16/23 9:15 am Jose Luis Oconnor MD [STAFF PHYSICIAN] - 1 Week Ambulatory/Diagnostic Orders: XR chest 2V [RAD.AMB] Time Frame: 11/16/23, Facility: [facility], Location: [facility] Activity/Diet/Wound Care/Special Instructions: DISCHARGE INSTRUCTIONS: 1. No driving for 2 weeks, or until physician gives their ok. 2. No lifting, pushing, or pulling more than 10 pounds for 2 weeks. The physician will advise of any restriction changes. 3. Continue pain control per as needed orders. Alternate acetaminophen (Tylenol) and ibuprofen (Motrin/Advil) for pain. 4. Continue with incentive spirometry and splinting until otherwise directed by the physician. 5. Leave chest tube dressing for 48 hours. After that, remove all dressings and shower daily. 6. Routine incision care. No powders, lotions, ointments on incisions. 7. Please call surgeon/EXPEDITIONARY FIGHTING VEHICLE CREWMAN for temp greater than 101 F or purulent drainage from incisions. 8. Smoking cessation counseling and program information provided. Quitting smoking is the most important step you can take to improve your health. For additional information and assistance to quit smoking, please call the [place] tobacco quit line (8-748-FEZG-NOW/ ) or online: [email or web address] Discharge Disposition: HOME SELF-CARE
[2023-11-06] MEDS ORDERED: POTASSIUM CHLORIDE ER 10 MEQ TAB.ER.PRT PO STA (12:06)
[2023-11-06] MEDS ORDERED: FUROSEMIDE 20 MG TAB PO STA (12:06)
--- NOTE | 2023-11-06 12:14 | P.PN ---
Subjective Progress Note Date: 11/06/23 The patient is seen today 11/06/2023 diagnosed with early stage adenocarcinoma of the lung and the patient underwent a robotic-assisted thoracoscopic right upper lobectomy. Postoperative day #5. Today's chest x-ray shows postsurgical volume loss of the right hemithorax with a right-sided chest tube in place. Small right apical pneumothorax present. She is currently sitting up in bed. Awake and alert in no acute distress. Maintaining good O2 saturations in the 90s on room air. Afebrile. Hemodynamically stable. White count 8.1. Hemoglobin 10.1. Sodium 137. Potassium 3.7. Bicarb 36. BUN 23. Creatinine 0.75. Glucose 106. He is continued on DuoNeb inhalations, Pulmicort and Perforomist inhalations. Working well with the incentive spirometer. Objective - Vital Signs Vital signs: Vital Signs Temp 98.1 F 11/04/23 20:00 Pulse 83 11/06/23 10:09 Resp 18 11/06/23 10:09 BP 134/69 11/06/23 08:56 Pulse Ox 100 11/06/23 08:56 FiO2 Intake & Output 11/05/23 11/06/23 11/06/23 18:59 06:59 18:59 Intake Total 476 240 Output Total 0 650 Balance 476 -650 240 Intake: Oral 476 240 Output: Chest Tube Drainage 0 650 Chest Tube Right Lateral 0 650 Chest Other: Voiding Method Bedside Commode Bedside Commode Bedside Commode # Voids 1 2 1 ABP, PAP, CO, CI - Last Documented Arterial Blood Pressure 119/43 - Exam GENERAL EXAM: Alert, very pleasant 63-year-old female, on room air, comfortable in no apparent distress. HEAD: Normocephalic. EYES: Normal reaction of pupils, equal size. NOSE: Clear with pink turbinates. THROAT: No erythema or exudates. NECK: No masses, no JVD. CHEST: No chest wall deformity. Right-sided chest tube removed. Dressing dry and intact. LUNGS: Equal air entry with no crackles, wheeze, rhonchi or dullness. CVS: S1 and S2 normal with no audible murmur, regular rhythm. ABDOMEN: No hepatosplenomegaly, normal bowel sounds, no guarding or rigidity. SPINE: No scoliosis or deformity SKIN: No rashes CENTRAL NERVOUS SYSTEM: No focal deficits, tone is normal in all 4 extremities. EXTREMITIES: There is no peripheral edema. No clubbing, no cyanosis. Peripheral pulses are intact. - Labs CBC & Chem 7: 11/06/23 07:10 11/06/23 07:10 Labs: Abnormal Lab Results - Last 24 Hours (Table) 11/06/23 11/06/23 Range/Units 07:10 07:10 RBC 3.39 L (3.80-5.40) m/uL Hgb 10.1 L (11.4-16.0) gm/dL Hct 31.4 L (34.0-46.0) % Chloride 96 L (98-107) mmol/L Carbon Dioxide 36 H (22-30) mmol/L BUN 23 H (7-17) mg/dL Glucose 106 H (74-99) mg/dL Assessment and Plan Assessment: Robotic-assisted right upper lobectomy with mediastinal lymph node dissection. The patient's postop day # 5. Chest x-ray reveals a small right apical pneumothorax. Chest tube removed today. Adenocarcinoma of the lung, early stage with a 1.2 cm right upper lobe pulmonary nodule, post robotic a bronchoscopy that was done on 09/28/2023 COPD, mild with an FEV1 of 72% of predicted, maintain on Trelegy Ellipta on an outpatient basis History of laryngeal cancer post laryngectomy History of smoking Hyperlipidemia Chronic anxiety/depression Hypertension maintain on hydrochlorothiazide on outpatient basis Plan: The patient was seen and evaluated Chest x-ray, medications and labs reviewed Chest tube removed per CT services Continue to work well with the incentive spirometer Continue her home pulmonary medications Follow-up in our office in 1 week This patient was seen independently by the nurse practitioner I have personally seen and examined the patient, performed the documentation and the assessment and plan as written. Number of minutes spent on the visit: 22.
[2023-11-06 12:43] VITALS: BP 120/73; PULSE 89
== END 2023-11-06 13:10 | disposition home or self-care (01) | DRG 164 ==
LOC: 2ORMAIN 06:41 → 2SICU 12:44 → 3SCARD 11-03 00:12
PROVIDERS: ADMIT Thoracic Surgery (Cardiothoracic Vascular Surgery); ATTEND Thoracic Surgery (Cardiothoracic Vascular Surgery)
PROC: 3E0T3BZ Introduction of Anesthetic Agent into Peripheral Nerves and Plexi, Percutaneous Approach (ICD-10-PCS; 2023-11-01)
PROC: 8E0W4CZ Robotic Assisted Procedure of Trunk Region, Percutaneous Endoscopic Approach (ICD-10-PCS; 2023-11-01)
PROC: 3E033XZ Introduction of Vasopressor into Peripheral Vein, Percutaneous Approach (ICD-10-PCS; 2023-11-01)
PROC: 0BTC4ZZ Resection of Right Upper Lung Lobe, Percutaneous Endoscopic Approach (ICD-10-PCS; principal; 2023-11-01 08:30)
PROC: 07B74ZX Excision of Thorax Lymphatic, Percutaneous Endoscopic Approach, Diagnostic (ICD-10-PCS; 2023-11-01 08:30)
DX: C34.11 Malignant neoplasm of upper lobe, right bronchus or lung (principal); J93.82 Other air leak; I67.1 Cerebral aneurysm, nonruptured; J44.9 Chronic obstructive pulmonary disease, unspecified; I10 Essential (primary) hypertension; F32.A Depression, unspecified; Z95.828 Presence of other vascular implants and grafts; E78.5 Hyperlipidemia, unspecified; H91.92 Unspecified hearing loss, left ear; F41.9 Anxiety disorder, unspecified; M54.9 Dorsalgia, unspecified; R00.1 Bradycardia, unspecified; Z87.891 Personal history of nicotine dependence; Z85.828 Personal history of other malignant neoplasm of skin; Z80.3 Family history of malignant neoplasm of breast; Z82.0 Family history of epilepsy and other diseases of the nervous system; Z80.0 Family history of malignant neoplasm of digestive organs; Z80.49 Family history of malignant neoplasm of other genital organs; Z79.82 Long term (current) use of aspirin; Z79.899 Other long term (current) drug therapy; Z79.51 Long term (current) use of inhaled steroids; Z85.21 Personal history of malignant neoplasm of larynx; Z90.02 Acquired absence of larynx
CPT/HCPCS: 31624; 64999; 71045; 80048; 85025; 85027; 86850; 86900; 86901; 86920; 88305; 88309; 88341; 88342; 94640; 94760

== ENCOUNTER 2023-11-09 09:31 | Emergency (ER) | payer MEDICARE ==
[2023-11-09 10:03] VITALS: BP 131/66; PULSE 79; RESP 20; TEMP 97.6
[2023-11-09 10:04] LABS: Basophils # (A) 0.1 k/uL (0-0.2); Basophils % (A) 1 %; Eosinophils # (A) 0.6 k/uL (0-0.7); Eosinophils % (A) 6 %; HCT 36.9 % (34.0-46.0); HGB 12.3 gm/dL (11.4-16.0); Lymphocytes # (A) 2.1 k/uL (1.0-4.8); Lymphocytes % (A) 24 %; MCH 30.6 pg (25.0-35.0); MCHC 33.2 g/dL (31.0-37.0); MCV 92.1 fL (80.0-100.0); Mean Platelet Volume 7.5; Monocytes # (A) 0.5 k/uL (0-1.0); Monocytes % (A) 5 %; Neutrophils # (A) 5.6 k/uL (1.3-7.7); Neutrophils % (A) 62 %; Platelet Count 419 k/uL (150-450); RBC 4.01 m/uL (3.80-5.40)
[2023-11-09 10:23] LABS: ALT 32 U/L (4-34); AST 36 U/L (14-36); African American GFR (CKD) >90 (>60 ml/min/1.73 sqM); Alkaline Phosphatase 141 U/L (38-126); Anion Gap 13 mmol/L; Blood Urea Nitrogen 20 mg/dL (7-17); Calcium 9.6 mg/dL (8.4-10.2); Carbon Dioxide 27 mmol/L (22-30); Chloride 101 mmol/L (98-107); Glucose 133 mg/dL (74-99); Non-African American GFR(CKD) >90 (>60 ml/min/1.73 sqM); Potassium 3.6 mmol/L (3.5-5.1); Sodium 141 mmol/L (137-145); Total Bilirubin 0.5 mg/dL (0.2-1.3); Total Protein 6.9 g/dL (6.3-8.2)
[2023-11-09 10:27] LABS: INR 0.9 (<1.2); Partial Thromboplastin Time 22.6 sec (22.0-30.0); Prothrombin Time 10.3 sec (10.0-12.5)
[2023-11-09] MEDS ORDERED: SODIUM CHLORIDE 0.9% 500 ML 500 ML IV STA (11:26)
[2023-11-09] MEDS ORDERED: MORPHINE SULFATE 4 MG/ML SYRINGE IVP STA ×2 (11:26→13:29)
[2023-11-09] MEDS ORDERED: ONDANSETRON 4 MG/2 ML VIAL IVP STA (11:43)
--- NOTE | 2023-11-09 11:54 | ED ---
General Adult HPI - General Chief complaint: Shortness of Breath Stated complaint: sob complications after surgery Time Seen by Provider: 11/09/23 10:28 Source: patient, RN notes reviewed, old records reviewed Mode of arrival: ambulatory Limitations: no limitations - History of Present Illness Initial comments: Patient is a 63-year-old female who presents emergency Department complaining of right-sided chest pain and shortness of breath. Had a recent lung resection with Dr. Mojica due to lung cancer on the . Was discharged home on the . States that since that time has had increasing right-sided chest discomfort and shortness breath from the pain. Is on [place] and is having hard time controlling the pain. Denies any cough or fevers. Is not on blood thinners. Has no other acute complaints at this time. Presents for further evaluation at this time. Workup are largely started in triage. - Related Data Home Medications Medication Instructions Recorded Confirmed hydroCHLOROthiazide 25 mg PO DAILY 01/19/23 11/09/23 Aspirin [[place] Aspirin EC] 81 mg PO DAILY 09/27/23 11/09/23 Atorvastatin [Lipitor] 40 mg PO DAILY 09/27/23 11/09/23 DULoxetine HCL [Cymbalta] 60 mg PO DAILY 09/27/23 11/09/23 Cholecalciferol [Vitamin D3 (25 50 mcg PO DAILY 10/24/23 11/09/23 Mcg = 1000 Iu)] Fluticasone/Umeclidin/Vilanter 1 puff INHALATION RT-DAILY 10/24/23 11/09/23 [Trelegy Ellipta 100-62.5-25] Ubidecarenone [Co Q-10] 200 mg PO DAILY 10/24/23 11/09/23 Hydrocodone/Acetaminophen 1 tab PO TID PRN 11/09/23 11/09/23 [Hydrocodone/Acetaminophen 10-300 mg] Previous Rx's Medication Instructions Recorded guaiFENesin [Mucinex] 1,200 mg PO BID #14 tab 11/06/23 Cyclobenzaprine [Flexeril] 5 mg PO TID PRN 7 Days #21 tablet 11/09/23 Ketorolac [Toradol] 10 mg PO Q6HR PRN 7 Days #28 tab 11/09/23 Allergies Allergy/AdvReac Type Severity Reaction Status Date / Time No Known Allergies Allergy Verified 11/09/23 13:32 Review of Systems ROS Statement: Those systems with pertinent positive or pertinent negative responses have been documented in the HPI. Review of Systems: CONST: Denies fever EYES: Denies blurry vision ENT: Denies nasal congestion C/V: Endorses chest wall pain RESP: Endorses shortness of breath GI: Denies abdominal pain : Denies dysuria SKIN: Denies rash. MSK: Denies joint pain. NEURO: Denies headache ROS Other: All systems not noted in ROS Statement are negative. Past Medical History Past Medical History: Cancer, COPD, Hearing Disorder / Deafness, Hyperlipidemia, Hypertension Additional Past Medical History / Comment(s): Back pain since early . Degenerative discs, leg pain with it. Had recent bone scan and ct scan, hx skin cancer, has had eye injections for bleeding behind retina of left eye, pt states her COPD is "borderline." Hard of hearing in left ear. found nodule in lung after pet scan sep 22 History of Any Multi-Drug Resistant Organisms: None Reported Past Surgical History: Appendectomy, Section, Ear Surgery, Orthopedic Surgery Additional Past Surgical History / Comment(s): Laparoscopies for infertility, skin cancer on leg removed, brain aneurysm with coiling, right ring finger trigger finger release. lung bx -lung punctured Past Anesthesia/Blood Transfusion Reactions: No Reported Reaction Additional Past Anesthesia/Blood Transfusion Reaction / Comment(s): no blood transfusion Past Psychological History: Anxiety Smoking Status: Former smoker Past Alcohol Use History: None Reported Past Drug Use History: None Reported - Past Family History Father Family Medical History: Cancer Additional Family Medical History / Comment(s): Brain tumor. Mother Family Medical History: Cancer Additional Family Medical History / Comment(s): Breast, neck, vulva cancer. Sister(s) Family Medical History: Cancer Additional Family Medical History / Comment(s): Breast cancer, one sister, other sister brain tumor. Brother(s) Family Medical History: Cancer Additional Family Medical History / Comment(s): "Full of cancer." General Exam - General Exam Comments Initial Comments: General: Appears in no acute distress. HEAD: Normal with no signs of head trauma. EYES: PERRLA, EOMI, conjunctiva normal, no discharge. ENT: Hearing grossly intact, normal oropharynx. RESPIRATORY: Clear breath sounds bilaterally. No wheezes, rales, or rhonchi. On chronic cannula oxygen. C/V: Regular rate and rhythm. S1 and S2 auscultated, no edema, peripheral pulses 2+ and intact throughout ABD: Abd is soft, nontender, nondistended EXT: Normal range of motion, no obvious deformity. Chest wall tenderness to palpation on the right along the surgical sites and site of chest tube. SKIN: Surgical wounds appear to be healing adequately. NEURO: Alert and oriented x 4. Limitations: no limitations Course Vital Signs 11/09/23 09:35 Temperature 97.6 F Pulse Rate 79 Respiratory 20 Rate Blood Pressure 131/66 O2 Sat by Pulse 94 L Oximetry Medical Decision Making - Medical Decision Making Was pt. sent in by a medical professional or institution (, PA, MANAGER OF PATIENT, urgent care, hospital, or assisted...) When possible be specific @ -No Did you speak to anyone other than the patient for history (EMS, parent, family, police, friend...)? What history was obtained from this source @ -No Did you review nursing and triage notes (agree or disagree)? Why? @ -I reviewed and agree with nursing and triage notes Were old charts reviewed (outside hosp., previous admission, EMS record, old EKG, old radiological studies, urgent care reports/EKG's, assisted records)? Report findings @ -Old charts reviewed Differential Diagnosis (chest pain, altered mental status, abdominal pain women, abdominal pain men, vaginal bleeding, weakness, fever, dyspnea, syncope, headache, dizziness, GI bleed, back pain, seizure, CVA, palpatations, mental health, musculoskeletal)? @ -Differential Dyspnea: Coronary syndrome, arrhythmia, tamponade, asthma, COPD, pulmonary embolism, pneumonia, pneumothorax, pulmonary effusion, anaphylaxis, diabetic ketoacidosis, flailed chest, pulmonary contusion, diaphragmatic rupture, anemia, neuromuscular, this is not meant to be an all-inclusive list. EKG interpreted by me (3pts min.). @ -As above X-rays interpreted by me (1pt min.). @ -None done CT interpreted by me (1pt min.). @ -CT chest revealed no evidence of pulmonary embolism. Shows postop changes. No significant acute findings. U/S interpreted by me (1pt. min.). @ -None done What testing was considered but not performed or refused? (CT, X-rays, U/S, labs)? Why? @ -None What meds were considered but not given or refused? Why? @ -None Did you discuss the management of the patient with other professionals (professionals i.e. , PA, MANAGER OF PATIENT, lab, RT, psych nurse, psychosocial rehabilitation counselor, leather stripping machine operator, teacher, tank officer, medical case manager)? Give summary @ -No Was smoking cessation discussed for >3mins.? @ -No Was critical care preformed (if so, how long)? @ -No Were there social determinants of health that impacted care today? How? (Homelessness, low income, unemployed, alcoholism, drug addiction, transportation, low edu. Level, literacy, decrease access to med. care, senior care, rehab)? @ -No Was there de-escalation of care discussed even if they declined (Discuss DNR or withdrawal of care, Hospice)? DNR status @ -No What co-morbidities impacted this encounter? (DM, HTN, Smoking, COPD, CAD, Cancer, CVA, ARF, Chemo, Hep., AIDS, mental health diagnosis, sleep apnea, morbid obesity)? @ -None Was patient admitted / discharged? Hospital course, mention meds given and route, prescriptions, significant lab abnormalities, going to OR and other pertinent info. @ -Based on the patient's presentation and physical exam, presents for evaluation following right lung lobectomy status post chest tube removal. Seems to be having postop pain however cannot definitively rule out PE at this time. Patient's labs are remarkable for an elevated d-dimer of 6.93. Troponin undetectable. The patient's multiple risk factors, recent surgery, and concern for possible be well we will obtain a CT angiogram to evaluate for 1. Patient was in agreement this plan. Vital signs within acceptable limits at this time. She'll be symptomatically treatment with IV fluids, Zofran, morphine. The workup obtained in triage was within acceptable limits. EKG shows no signs of a cute ischemia. CT imaging shows positive postop changes without any significant acute findings. Discussed the imaging with PABLO Cheung of CV surgery with Dr. Mojica who was in agreement with patient's discharge home with additional analgesic medication such as muscle relaxers. No acute intervention at this time. I did discuss this with the patient. She expressed understanding. She'll be discharged home with additional analgesia medications. Patient's follow-up with Dr. Mojica next week. I will provide the patient with a prescription for Toradol,. I instructed the patient to follow up with their PCP in the next 1-3 days. I explained that the patient should return to the emergency department if they experience any worsening symptoms. Strict return precautions were discussed with the patient. The patient expressed understanding of these instructions. I answered all questions that the patient had. The patient was discharged home in fair condition with their prescriptions and follow up information. Undiagnosed new problem with uncertain prognosis? @ -No Drug Therapy requiring intensive monitoring for toxicity (Heparin, Nitro, Insulin, Cardizem)? @ -No Were any procedures done? @ -No Diagnosis/symptom? @ -Postop pain Acute, or Chronic, or Acute on Chronic? @ -Acute Uncomplicated (without systemic symptoms) or Complicated (systemic symptoms)? @ -Uncomplicated Side effects of treatment? @ -none Exacerbation, Progression, or Severe Exacerbation] @ -no Poses a threat to life or bodily function? @ -no - Lab Data Result diagrams: 11/09/23 09:55 11/09/23 09:55 Lab Results 11/09/23 11/09/23 11/09/23 Range/Units 09:55 09:55 09:55 WBC 9.0 (3.8-10.6) k/uL RBC 4.01 (3.80-5.40) m/uL Hgb 12.3 (11.4-16.0) gm/dL Hct 36.9 (34.0-46.0) % MCV 92.1 (80.0-100.0) fL MCH 30.6 (25.0-35.0) pg MCHC 33.2 (31.0-37.0) g/dL RDW 13.0 (11.5-15.5) % Plt Count 419 (150-450) k/uL MPV 7.5 Neutrophils % 62 % Lymphocytes % 24 % Monocytes % 5 % Eosinophils % 6 % Basophils % 1 % Neutrophils # 5.6 (1.3-7.7) k/uL Lymphocytes # 2.1 (1.0-4.8) k/uL Monocytes # 0.5 (0-1.0) k/uL Eosinophils # 0.6 (0-0.7) k/uL Basophils # 0.1 (0-0.2) k/uL PT 10.3 (10.0-12.5) sec INR 0.9 (<1.2) APTT 22.6 (22.0-30.0) sec D-Dimer 6.93 H (<0.60) mg/L FEU Sodium 141 (137-145) mmol/L Potassium 3.6 (3.5-5.1) mmol/L Chloride 101 (98-107) mmol/L Carbon Dioxide 27 (22-30) mmol/L Anion Gap 13 mmol/L BUN 20 H (7-17) mg/dL Creatinine 0.70 (0.52-1.04) mg/dL Est GFR (CKD-EPI)AfAm >90 (>60 ml/min/1.73 sqM) Est GFR (CKD-EPI)NonAf >90 (>60 ml/min/1.73 sqM) Glucose 133 H (74-99) mg/dL Plasma Lactic Acid Levi (0.7-2.0) mmol/L Calcium 9.6 (8.4-10.2) mg/dL Total Bilirubin 0.5 (0.2-1.3) mg/dL AST 36 (14-36) U/L ALT 32 (4-34) U/L Alkaline Phosphatase 141 H (38-126) U/L Troponin I (0.000-0.034) ng/mL Total Protein 6.9 (6.3-8.2) g/dL Albumin 4.0 (3.5-5.0) g/dL 11/09/23 11/09/23 Range/Units 09:55 11:40 WBC (3.8-10.6) k/uL RBC (3.80-5.40) m/uL Hgb (11.4-16.0) gm/dL Hct (34.0-46.0) % MCV (80.0-100.0) fL MCH (25.0-35.0) pg MCHC (31.0-37.0) g/dL RDW (11.5-15.5) % Plt Count (150-450) k/uL MPV Neutrophils % % Lymphocytes % % Monocytes % % Eosinophils % % Basophils % % Neutrophils # (1.3-7.7) k/uL Lymphocytes # (1.0-4.8) k/uL Monocytes # (0-1.0) k/uL Eosinophils # (0-0.7) k/uL Basophils # (0-0.2) k/uL PT (10.0-12.5) sec INR (<1.2) APTT (22.0-30.0) sec D-Dimer (<0.60) mg/L FEU Sodium (137-145) mmol/L Potassium (3.5-5.1) mmol/L Chloride (98-107) mmol/L Carbon Dioxide (22-30) mmol/L Anion Gap mmol/L BUN (7-17) mg/dL Creatinine (0.52-1.04) mg/dL Est GFR (CKD-EPI)AfAm (>60 ml/min/1.73 sqM) Est GFR (CKD-EPI)NonAf (>60 ml/min/1.73 sqM) Glucose (74-99) mg/dL Plasma Lactic Acid Levi 0.8 (0.7-2.0) mmol/L Calcium (8.4-10.2) mg/dL Total Bilirubin (0.2-1.3) mg/dL AST (14-36) U/L ALT (4-34) U/L Alkaline Phosphatase (38-126) U/L Troponin I <0.012 (0.000-0.034) ng/mL Total Protein (6.3-8.2) g/dL Albumin (3.5-5.0) g/dL - EKG Data -: EKG Interpreted by Me EKG Comments: 12-lead Electrocardiogram Interpretation Note EKG was reviewed and interpreted by myself. 12-lead ECG performed at 0947 is interpreted by me as revealing normal sinus rhythm at a rate of 74 beats per minute. Damon is normal. [place] interval is 155 ms, QRS duration is 86 ms, QTc is 413 ms.. There were no ST or T wave abnormalities to suggest myocardial ischemia or injury. R wave progression across the precordium was satisfactory. By my interpretation this EKG is non-diagnostic for acute ischemia. Disposition Clinical Impression: Post-op pain Disposition: HOME SELF-CARE Condition: Fair Prescriptions: Cyclobenzaprine [Flexeril] 5 mg PO TID PRN 7 Days #21 tablet PRN Reason: Pain Ketorolac [Toradol] 10 mg PO Q6HR PRN 7 Days #28 tab PRN Reason: Pain Is patient prescribed a controlled substance at d/c from ED?: No Referrals: Raza Nielsen MD [Primary Care Provider] - 1-2 days Александр Mojica MD [STAFF PHYSICIAN] - 1-2 days Time of Disposition: 13:15
--- NOTE | 2023-11-09 12:53 | CT ---
EXAMINATION TYPE: CT chest angio for PE CT DLP: 313.5 mGycm, Automated exposure control for dose reduction was used. DATE OF EXAM: 11/09/2023 12:32 PM COMPARISON: 09/28/2023. CLINICAL INDICATION:Female, 63 years old with history of chest pain. dyspnea. eval for pe. recent ariel g surg; right lobectomy, right side chest and back pain TECHNIQUE/CONTRAST: CTA scan of the thorax is performed with IV Contrast, patient injected with 100 mL of Isovue 370, MIP images are created and reviewed these are created on a separate workstation.. FINDINGS: Pulmonary Artery: There is no evidence for a filling defect within the pulmonary vasculature to sugge st acute pulmonary embolism. The pulmonary artery is of normal size. Lungs/Pleura: Trace right pleural effusion. No left pleural effusion. Trace right pneumothorax with c onsolidation changes along the medial aspect of the surgical margin Airway: Large airways are patent. Heart: Heart is within normal limits for size. Vasculature: No evidence of aortic aneurysm. Mediastinum: No gross evidence of adenopathy. Musculoskeletal: No acute osseous abnormalities Soft Tissues: Unremarkable. Lower neck: No significant findings. Upper Abdomen: Trace ascites in the abdomen. IMPRESSION: 1. No evidence of pulmonary embolism. 2. Postsurgical changes with trace right pneumothorax and consolidation changes along the surgical ma rgin. Consolidation represent atelectasis versus blood products. Attention on follow-up imaging. 3. Trace right pleural effusion.
[2023-11-09] MEDS ORDERED: ONDANSETRON 4 MG ODT STARTER PACK 2 TAB BTL PO STA (13:50)
== END 2023-11-09 16:11 | disposition home or self-care (01) ==
LOC: EC 09:31
DX: G89.18 Other acute postprocedural pain (principal); I10 Essential (primary) hypertension; E78.5 Hyperlipidemia, unspecified; F41.9 Anxiety disorder, unspecified; J44.9 Chronic obstructive pulmonary disease, unspecified; Z79.82 Long term (current) use of aspirin; Z79.899 Other long term (current) drug therapy; Z87.891 Personal history of nicotine dependence
CPT/HCPCS: 36415; 93005; 85379; 80053; 83605; 84484; 85025; 85610; 85730; 71275; 99285; 96374; 96375; 96376; 96361; J2270; J2405; S0119; Q9967

== ENCOUNTER → 2024-06-06 | Outpatient (CLI) | payer MEDICARE ==
--- NOTE | 2024-06-06 11:15 | CT ---
EXAMINATION TYPE: CT chest w con DATE OF EXAM: 06/06/2024 COMPARISON: 04/21/2020 HISTORY: Lung ca, routine follow up CT DLP: 455 mGycm Automated exposure control for dose reduction was used. TECHNIQUE: CT scan of the chest is performed with IV Contrast, patient injected with 100 mL of Isovue 300. MIP Images are created on CT scanner and reviewed. 3D reconstructed images are created on an independent workstation and reviewed. FINDINGS: There has been a right upper lobe lobectomy with resulting and mild volume loss and mild elevation of the right hemidiaphragm. There are moderate emphysematous changes. There is no new or suspicious lung mass or nodule. There is no pleural effusion or pneumothorax. No airspace consolidation or abnormal interstitial dens ity. There is no mediastinal, hilar or axillary adenopathy. Great vessels and chest are normal. Limited scanning through the upper abdomen reveals a stable 9 to 10 mm left adrenal adenoma. There is surgical absence of the gallbladder. There are no focal osseous lesions. IMPRESSION: 1. Status post right upper lobe lobectomy. 2. No evidence of recurrent or metastatic disease. 3. Stable left adrenal adenoma. 4. Moderate emphysematous changes. Follow-up recommendations for incidental pulmonary nodules are per [employer] or [employer].
== END | disposition home or self-care (01) ==
LOC: RADCTMAIN 10:12
PROVIDERS: ATTEND Internal Medicine Critical Care Medicine
DX: C34.90 Malignant neoplasm of unspecified part of unspecified bronchus or lung (principal); D35.02 Benign neoplasm of left adrenal gland
CPT/HCPCS: 71260; Q9967

== ENCOUNTER → 2024-08-14 | Outpatient (CLI) | payer MEDICARE ==
[2024-08-14 15:40] LABS: Basophils # (A) 0.06 X 10*3/uL (0.00-0.10); Basophils % (A) 0.8 %; Eosinophils # (A) 0.23 X 10*3/uL (0.04-0.35); Eosinophils % (A) 2.9 %; HCT 46.4 % (37.2-46.3); HGB 14.8 g/dL (12.0-15.0); Lymphocytes # (A) 2.23 X 10*3/uL (0.90-5.00); Lymphocytes % (A) 28.6 %; MCH 30.3 pg (27.0-32.0); MCHC 31.9 g/dL (32.0-37.0); MCV 95.1 FL (80.0-97.0); Mean Platelet Volume 10.7 FL (9.5-12.2); Monocytes # (A) 0.52 X 10*3/uL (0.20-1.00); Monocytes % (A) 6.7 %; NRBC Per 100 WBC 0 X 10*3/uL (0.00-0.01); Neutrophils # (A) 4.74 X 10*3/uL (1.80-7.70); Neutrophils % (A) 60.7 %; Platelet Count 320 X 10*3/uL (140-440); RBC 4.88 X 10*6/uL (4.10-5.20); RDW 13.4 % (11.5-14.5)
[2024-08-14 15:49] LABS: Chol/HDL Ratio 2.94 Ratio; LDL Cholesterol,Calculated 69.7 mg/dL (0.0-131.0)
[2024-08-14 15:50] LABS: ALT 426 U/L (8-44); AST 120 U/L (13-35); Albumin 4.6 g/dL (3.8-4.9); Albumin/Globulin Ratio 1.92 Ratio (1.60-3.17); Alkaline Phosphatase 352 U/L (41-126); BUN/Creat Ratio 19.29 Ratio (12.00-20.00); Blood Urea Nitrogen 13.5 mg/dL (9.0-27.0); Calcium 9.9 mg/dL (8.7-10.3); Carbon Dioxide 28.5 mmol/L (21.6-31.8); Chloride 102 mmol/L (96-109); Estradiol <20.0 pg/mL; Globulin 2.4 g/dL (1.6-3.3); Glucose 119 mg/dL (70-110); Potassium 3.4 mmol/L (3.5-5.5); Sodium 142 mmol/L (135-145); T4, Free (Free Thyroxine) 1.42 ng/dL (0.80-1.80); Total Bilirubin 0.5 mg/dL (0.3-1.2)
[2024-08-14 15:59] LABS: Luteinizing Hormone 56.3 mIU/mL
== END | disposition home or self-care (01) ==
LOC: LABWHC1 08:36
PROVIDERS: ATTEND Family Medicine
DX: Z00.01 Encounter for general adult medical examination with abnormal findings (principal); R63.4 Abnormal weight loss; R23.2 Flushing; Z01.419 Encounter for gynecological examination (general) (routine) without abnormal findings
CPT/HCPCS: 36415; 80053; 80061; 82306; 82670; 83001; 83002; 84439; 84443; 85025

== ENCOUNTER 2024-08-15 13:16 | Emergency (ER) | payer MEDICARE ==
[2024-08-15] MEDS: SODIUM CHLORIDE 0.9% 1,000 ML IV STA (14:26)
[2024-08-15] MEDS: HYDROmorphone 0.5 MG/0.5 ML SYRINGE IVP STA ×2 (14:27→18:02)
[2024-08-15] MEDS: ONDANSETRON 4 MG/2 ML VIAL IVP STA ×2 (14:27→18:08)
[2024-08-15 14:57] LABS: Basophils % (A) 0 %; Eosinophils # (A) 0.1 k/uL (0-0.7); Eosinophils % (A) 1 %; HCT 42.9 % (34.0-46.0); HGB 14.1 gm/dL (11.4-16.0); Lymphocytes % (A) 8 %; MCH 30.5 pg (25.0-35.0); MCHC 32.9 g/dL (31.0-37.0); MCV 92.8 fL (80.0-100.0); Mean Platelet Volume 7.6; Monocytes # (A) 0.8 k/uL (0-1.0); Monocytes % (A) 6 %; Neutrophils # (A) 11.3 k/uL (1.3-7.7); Neutrophils % (A) 85 %; Platelet Count 306 k/uL (150-450); RBC 4.63 m/uL (3.80-5.40); RDW 13.3 % (11.5-15.5); WBC 13.4 k/uL (3.8-10.6)
[2024-08-15 15:15] LABS: ALT 532 U/L (4-34); African American GFR (CKD) >90 (>60 ml/min/1.73 sqM); Albumin 4.3 g/dL (3.5-5.0); Anion Gap 10 mmol/L; Blood Urea Nitrogen 16 mg/dL (7-17); Calcium 10.2 mg/dL (8.4-10.2); Carbon Dioxide 31 mmol/L (22-30); Chloride 100 mmol/L (98-107); Glucose 121 mg/dL (74-99); Non-African American GFR(CKD) >90 (>60 ml/min/1.73 sqM); Sodium 141 mmol/L (137-145); Total Bilirubin 3.7 mg/dL (0.2-1.3)
[2024-08-15 15:16] LABS: INR 0.9 (<1.2); Prothrombin Time 9.9 sec (10.0-12.5)
--- NOTE | 2024-08-15 15:23 | ED ---
General Adult HPI - General Chief complaint: Abdominal Pain Stated complaint: abd pain/vomitting Time Seen by Provider: 08/15/24 13:33 Source: patient, RN notes reviewed, old records reviewed Mode of arrival: ambulatory Limitations: no limitations - History of Present Illness Initial comments: 64-year-old female presenting for evaluation of approximately 1 month of abdominal pain with intermittent nausea vomiting patient. Reports the pain is in the epigastric region. She states she had a physical exam this week and had outpatient laboratory testing and is uncertain of these results. Patient does report change in her bowel habits, soft thin caliber stool. No rectal bleeding. No chest pain. No fever. Has had a 12 pound weight loss in the last 1 month - Related Data Home Medications Medication Instructions Recorded Confirmed hydroCHLOROthiazide 25 mg PO DAILY 01/19/23 08/15/24 Aspirin [[place] Aspirin EC] 81 mg PO DAILY 09/27/23 08/15/24 Atorvastatin [Lipitor] 40 mg PO DAILY 09/27/23 08/15/24 DULoxetine HCL [Cymbalta] 60 mg PO DAILY 09/27/23 08/15/24 Cholecalciferol [Vitamin D3 (25 50 mcg PO DAILY 10/24/23 08/15/24 Mcg = 1000 Iu)] Fluticasone/Umeclidin/Vilanter 1 puff INHALATION RT-DAILY 10/24/23 08/15/24 [Trelegy Ellipta 100-62.5-25] Ubidecarenone [Co Q-10] 200 mg PO DAILY 10/24/23 08/15/24 Hydrocodone/Acetaminophen 1 tab PO TID PRN 11/09/23 08/15/24 [Hydrocodone/Acetaminophen 10-300 mg] guaiFENesin [Mucinex] 1,200 mg PO BID PRN 08/15/24 08/15/24 Previous Rx's Medication Instructions Recorded Cyclobenzaprine [Flexeril] 5 mg PO TID PRN 7 Days #21 tablet 11/09/23 Allergies Allergy/AdvReac Type Severity Reaction Status Date / Time No Known Allergies Allergy Verified 08/15/24 16:43 Review of Systems ROS Statement: Those systems with pertinent positive or pertinent negative responses have been documented in the HPI. ROS Other: All systems not noted in ROS Statement are negative. Past Medical History Past Medical History: Cancer, COPD, Hearing Disorder / Deafness, Hyperlipidemia, Hypertension Additional Past Medical History / Comment(s): Back pain since early . Degenerative discs, leg pain with it. Had recent bone scan and ct scan, hx skin cancer, has had eye injections for bleeding behind retina of left eye, pt states her COPD is "borderline." Hard of hearing in left ear. found nodule in lung after pet scan oct History of Any Multi-Drug Resistant Organisms: None Reported Past Surgical History: Appendectomy, Section, Ear Surgery, Orthopedic Surgery Additional Past Surgical History / Comment(s): Laparoscopies for infertility, skin cancer on leg removed, brain aneurysm with coiling, right ring finger trigger finger release. lung bx -lung punctured Past Anesthesia/Blood Transfusion Reactions: No Reported Reaction Additional Past Anesthesia/Blood Transfusion Reaction / Comment(s): no blood transfusion Past Psychological History: Anxiety Smoking Status: Former smoker Past Alcohol Use History: Occasional Past Drug Use History: None Reported - Past Family History Father Family Medical History: Cancer Additional Family Medical History / Comment(s): Brain tumor. Mother Family Medical History: Cancer Additional Family Medical History / Comment(s): Breast, neck, vulva cancer. Sister(s) Family Medical History: Cancer Additional Family Medical History / Comment(s): Breast cancer, one sister, other sister brain tumor. Brother(s) Family Medical History: Cancer Additional Family Medical History / Comment(s): "Full of cancer." General Exam Limitations: no limitations General appearance: alert, in no apparent distress Head exam: Present: atraumatic, normocephalic Eye exam: Present: normal appearance, PERRL ENT exam: Present: normal exam Neck exam: Present: normal inspection. Absent: tenderness, meningismus Respiratory exam: Present: normal lung sounds bilaterally. Absent: respiratory distress, wheezes Cardiovascular Exam: Present: regular rate, normal rhythm GI/Abdominal exam: Present: soft, distended, tenderness (epigastric) Extremities exam: Present: normal inspection Neurological exam: Present: alert, oriented X3 Psychiatric exam: Present: normal affect, normal mood Skin exam: Present: warm, dry, intact Course Vital Signs 08/15/24 13:21 Temperature 98 F Pulse Rate 112 H Respiratory 20 Rate Blood Pressure 127/74 O2 Sat by Pulse 96 Oximetry Medical Decision Making - Medical Decision Making Was pt. sent in by a medical professional or institution (DAWIT Singh, NEWSPAPER MANAGER, urgent care, hospital, or halfway...) When possible be specific @ -No Did you speak to anyone other than the patient for history (EMS, parent, family, police, friend...)? What history was obtained from this source @ -No Did you review nursing and triage notes (agree or disagree)? Why? @ -I reviewed and agree with nursing and triage notes Were old charts reviewed (outside hosp., previous admission, EMS record, old EKG, old radiological studies, urgent care reports/EKG's, halfway records)? Report findings @ -No old charts were reviewed Differential Abdominal Pain Women: Appendicitis, Cholecystitis, diverticulosis, ischemic bowel, pancreatitis, hepatitis, UTI, gastroenteritis, AAA, incarcerated hernia, bowel obstruction, constipation, inflammatory bowel, hepatitis, peptic ulcer disease, splenic infarction, perforated viscus, vulvitis, ovarian torsion, PID, kidney stone, placenta abruption, this is not meant to be an all-inclusive list EKG interpreted by me (3pts min.). @ -[Sinus rhythm rate of 76, GA interval 182, QRS duration 90, QTc [address] segment elevation. X-rays interpreted by me (1pt min.). @ -None done CT interpreted by me (1pt min.). @ -[CT abdomen pelvis performed with contrast, showing possibility of colitis, no other acute findings identified. U/S interpreted by me (1pt. min.). @Ultrasound of the right upper quadrant shows normal CBD surgically absent gallbladder. What testing was considered but not performed or refused? (CT, X-rays, U/S, labs)? Why? @ -None What meds were considered but not given or refused? Why? @ -None Did you discuss the management of the patient with other professionals (professionals i.e. DAWIT Singh, NEWSPAPER MANAGER, lab, RT, psych nurse, foster care social worker, oil rag washer, teacher, recruitment officer, medical case manager)? Give summary @ -Case discussed with Dr. Herron covering for GI, recommends need for transfer for possible ERCP when pancreatitis resolves. Accepting physician at [facility] Dr. Myers Was smoking cessation discussed for >3mins.? @ -No Was critical care preformed (if so, how long)? @ -No Were there social determinants of health that impacted care today? How? (Homelessness, low income, unemployed, alcoholism, drug addiction, transportation, low edu. Level, literacy, decrease access to med. care, skilled nursing, rehab)? @ -No Was there de-escalation of care discussed even if they declined (Discuss DNR or withdrawal of care, Hospice)? DNR status @ -No What co-morbidities impacted this encounter? (DM, HTN, Smoking, COPD, CAD, Cancer, CVA, ARF, Chemo, Hep., AIDS, mental health diagnosis, sleep apnea, morbid obesity)? @ -Previous cholecystectomy, no current alcohol use Was patient admitted / discharged? Hospital course, mention meds given and route, prescriptions, significant lab abnormalities, going to OR and other pertinent info. @ -64-year-old female with abdominal pain and nausea vomiting over the past several weeks and weight loss. Patient has previous surgical history including cholecystectomy. She has epigastric discomfort and tenderness on exam. Vital signs are stable. Patient has significant lab abnormalities included elevated bilirubin, elevated AST and ALT as well as alkaline phosphatase, elevated amylase and lipase. She has a normal common bile duct on ultrasound. CT does not show definitive cause. The patient is a nondrinker. I did discuss case with Dr. Herron covering for GI. [place] that the patient will likely require ERCP in the next several days and we will not have GI coverage at that time. Case discussed with the transfer center at [facility] Undiagnosed new problem with uncertain prognosis? @ -No Drug Therapy requiring intensive monitoring for toxicity (Heparin, Nitro, Insulin, Cardizem)? @ -No Were any procedures done? @ -No Diagnosis/symptom? @ -[Abdominal pain, pancreatitis, hyperbilirubinemia/transaminitis Acute, or Chronic, or Acute on Chronic? @ -Acute Uncomplicated (without systemic symptoms) or Complicated (systemic symptoms)? @ -[default Side effects of treatment? @ -No Exacerbation, Progression, or Severe Exacerbation? @ -No Poses a threat to life or bodily function? How? (Chest pain, [place], [place], pneumonia, PE, COPD, DKA, ARF, appy, cholecystitis, CVA, Diverticulitis, Homicidal, Suicidal, threat to staff... and all critical care pts) @ -Yes, pancreatitis, liver failure - Lab Data Result diagrams: 08/15/24 14:04 08/15/24 14:04 Lab Results 08/15/24 08/15/24 08/15/24 Range/Units 14:04 14:04 14:04 WBC 13.4 H (3.8-10.6) k/uL RBC 4.63 (3.80-5.40) m/uL Hgb 14.1 (11.4-16.0) gm/dL Hct 42.9 (34.0-46.0) % MCV 92.8 (80.0-100.0) fL MCH 30.5 (25.0-35.0) pg MCHC 32.9 (31.0-37.0) g/dL RDW 13.3 (11.5-15.5) % Plt Count 306 (150-450) k/uL MPV 7.6 Neutrophils % 85 % Lymphocytes % 8 % Monocytes % 6 % Eosinophils % 1 % Basophils % 0 % Neutrophils # 11.3 H (1.3-7.7) k/uL Lymphocytes # 1.0 (1.0-4.8) k/uL Monocytes # 0.8 (0-1.0) k/uL Eosinophils # 0.1 (0-0.7) k/uL Basophils # 0.0 (0-0.2) k/uL PT 9.9 L (10.0-12.5) sec INR 0.9 (<1.2) APTT 19.4 L (22.0-30.0) sec Sodium (137-145) mmol/L Potassium (3.5-5.1) mmol/L Chloride (98-107) mmol/L Carbon Dioxide (22-30) mmol/L Anion Gap mmol/L BUN (7-17) mg/dL Creatinine (0.52-1.04) mg/dL Est GFR (CKD-EPI)AfAm (>60 ml/min/1.73 sqM) Est GFR (CKD-EPI)NonAf (>60 ml/min/1.73 sqM) Glucose (74-99) mg/dL Plasma Lactic Acid Levi (0.7-2.0) mmol/L Calcium (8.4-10.2) mg/dL Total Bilirubin (0.2-1.3) mg/dL AST (14-36) U/L ALT (4-34) U/L Alkaline Phosphatase (38-126) U/L Troponin I (0.000-0.034) ng/mL Total Protein (6.3-8.2) g/dL Albumin (3.5-5.0) g/dL Amylase (30-110) U/L Urine Color Yellow Urine Appearance Clear (Clear) Urine pH 6.5 (5.0-8.0) Ur Specific [place] 1.039 H (1.001-1.035) Urine Protein Trace H (Negative) Urine Glucose (UA) Negative (Negative) Urine Ketones Negative (Negative) Urine Blood Negative (Negative) Urine Nitrite Negative (Negative) Urine Bilirubin Negative (Negative) Urine Urobilinogen 2.0 (<2.0) mg/dL Ur Leukocyte Esterase Negative (Negative) 08/15/24 08/15/24 08/15/24 Range/Units 14:04 14:04 14:04 WBC (3.8-10.6) k/uL RBC (3.80-5.40) m/uL Hgb (11.4-16.0) gm/dL Hct (34.0-46.0) % MCV (80.0-100.0) fL MCH (25.0-35.0) pg MCHC (31.0-37.0) g/dL RDW (11.5-15.5) % Plt Count (150-450) k/uL MPV Neutrophils % % Lymphocytes % % Monocytes % % Eosinophils % % Basophils % % Neutrophils # (1.3-7.7) k/uL Lymphocytes # (1.0-4.8) k/uL Monocytes # (0-1.0) k/uL Eosinophils # (0-0.7) k/uL Basophils # (0-0.2) k/uL PT (10.0-12.5) sec INR (<1.2) APTT (22.0-30.0) sec Sodium 141 (137-145) mmol/L Potassium 3.2 L (3.5-5.1) mmol/L Chloride 100 (98-107) mmol/L Carbon Dioxide 31 H (22-30) mmol/L Anion Gap 10 mmol/L BUN 16 (7-17) mg/dL Creatinine 0.68 (0.52-1.04) mg/dL Est GFR (CKD-EPI)AfAm >90 (>60 ml/min/1.73 sqM) Est GFR (CKD-EPI)NonAf >90 (>60 ml/min/1.73 sqM) Glucose 121 H (74-99) mg/dL Plasma Lactic Acid Levi 1.2 (0.7-2.0) mmol/L Calcium 10.2 (8.4-10.2) mg/dL Total Bilirubin 3.7 H (0.2-1.3) mg/dL AST 377 H (14-36) U/L ALT 532 H (4-34) U/L Alkaline Phosphatase 454 H (38-126) U/L Troponin I <0.012 (0.000-0.034) ng/mL Total Protein 7.0 (6.3-8.2) g/dL Albumin 4.3 (3.5-5.0) g/dL Amylase 2192 H* (30-110) U/L Urine Color Urine Appearance (Clear) Urine pH (5.0-8.0) Ur Specific [place] (1.001-1.035) Urine Protein (Negative) Urine Glucose (UA) (Negative) Urine Ketones (Negative) Urine Blood (Negative) Urine Nitrite (Negative) Urine Bilirubin (Negative) Urine Urobilinogen (<2.0) mg/dL Ur Leukocyte Esterase (Negative) Disposition Clinical Impression: Abdominal pain, Pancreatitis, Hyperbilirubinemia, Transaminitis Disposition: OTHER INSTITUTION NOT DEFINED Condition: Stable Is patient prescribed a controlled substance at d/c from ED?: No Referrals: Raza Nielsen MD [Primary Care Provider] - 1-2 days Time of Disposition: 17:15 - Out of Hospital Transfer - Req. Specs Out of Hospital Transfer - Requested Specifics: Other Emergency Center (Transfer to [facility])
[2024-08-15 15:26] LABS: Partial Thromboplastin Time 19.4 sec (22.0-30.0)
--- NOTE | 2024-08-15 15:32 | CT ---
EXAMINATION TYPE: CT abdomen pelvis w con DATE OF EXAM: 08/15/2024 COMPARISON: PET CT 09/22/2023 HISTORY: 64-year-old female Abdominal pain, N/V, unexplained weight loss x1mo. TECHNIQUE: Contiguous axial scanning of the abdomen and pelvis following administration of 100 ml Iso roscoe 300 IV contrast. Delayed images through the kidneys and coronal/sagittal reconstructions perform ed. CT DLP: 637.4 mGycm Automated exposure control for dose reduction was used. FINDINGS: The heart is upper limits of normal in size without pericardial effusion. Some strandy atelectasis anteromedial right mid lung. Otherwise, lung bases clear without pleural eff usion. Noncontrast appearance of the liver, right adrenal gland, kidneys, spleen, pancreas and no gross abno rmality. 1.6 cm low density nodule left adrenal gland remains unchanged, likely representing a benign adrenal adenoma. Portal venous system is patent. Mild prominence to the bile duct up to 7 mm likely due to chronic postcholecystectomy status. Moderate atherosclerotic calcifications infrarenal abdominal aorta and common iliac arteries. Severe stenosis to possible short segment occlusion left common iliac artery. No dilated small bowel, free fluid, or free air. Mild stool burden. More moderate in the sigmoid colon. Mild circumferential wall thickening at the re ctum may be due to nondistention. Bladder is urine distended. Uterus anteverted. Both ovaries are visualized. Incidental dropped cholec ystectomy clip interposed between the bladder and uterus incidentally noted. No abnormal fluid collec tion in the pelvis or pelvic lymphadenopathy. Bones: Previous vertebroplasty change L3. Moderate degenerative disc disease L3-L4. Facet arthropathy lower lumbar spine. IMPRESSION: 1. MILD CIRCUMFERENTIAL WALL THICKENING of the rectum. Correlate for any symptoms of a nonspecific mi ld distal colitis. 2. Unchanged 1.6 cm low density nodule left adrenal gland, likely a benign adrenal adenoma. [facility], , 08/15/2024 3:30 PM
[2024-08-15 15:37] LABS: AST 377 U/L (14-36); Alkaline Phosphatase 454 U/L (38-126); Potassium 3.2 mmol/L (3.5-5.1)
[2024-08-15 15:38] LABS: Amylase 2192 U/L (30-110)
--- NOTE | 2024-08-15 16:25 | US ---
EXAMINATION TYPE: US gallbladder DATE OF EXAM: 08/15/2024 COMPARISON: NONE CLINICAL INDICATION: Female, 64 years old with history of Epigastric abdominal pain, hyperbilirubinem ia; pain and vomiting. TECHNIQUE: Multiple sonographic images of the right upper quadrant are obtained. FINDINGS: EXAM MEASUREMENTS: Liver Length: 14.7 cm Gallbladder Wall: Surgically absent CBD: .6 cm Right Kidney: 10.9 x 4.9 x 3.9 cm SCHOOL [employer]GE [employer]GRAM ASSOCIATE NOTES: Pancreas: Tail obscured by overlying bowel gas Liver: Increased attenuation Gallbladder: Surgically absent Evidence for sonographic Sapp's sign: no CBD: wnl Right Kidney: No hydronephrosis or masses seen IMPRESSION: 1. No evidence for acute process. 2. Hepatic steatosis. [facility], Workstation: [facility] [id number], 08/15/2024 4:23 PM
[2024-08-15 16:36] LABS: Appearance,Urine Clear (Clear); Bilirubin,Urine Negative (Negative); Blood,Urine Negative (Negative); Color,Urine Yellow; Glucose,Urine (UA) Negative (Negative); Ketones,Urine Negative (Negative); Leukocyte Esterase,Urine Negative (Negative); Nitrite,Urine Negative (Negative); PH, Urine 6.5 (5.0-8.0); Protein,Urine Trace (Negative); Specific Gravity,Urine 1.039 (1.001-1.035)
[2024-08-15] MEDS: LORazepam 2 MG/ML INJ IV STA (18:08)
[2024-08-15] MEDS: SODIUM CHLORIDE 0.9% 1,000 ML IV SCH (18:09)
[2024-08-15] MEDS: POTASSIUM CHLORIDE 10 MEQ in WATER FOR INJECTION 1 100ML.BAG IVPB SCH (18:16)
[2024-08-15 19:15] VITALS: BP 125/53; PULSE 82; RESP 18; TEMP 98.8
[2024-08-16 12:15] LABS: Lipase >20000 U/L (23-300)
== END 2024-08-15 18:25 | disposition other institution (70) ==
LOC: EC 13:16
CPT/HCPCS: 36415; 74177; 76705; 80053; 81003; 82150; 83605; 83690; 84484; 85025; 85610; 85730; 93005; 96361; 96374; 96375; 96376; 99284

== ENCOUNTER → 2024-12-04 | Outpatient (CLI) | payer MEDICARE ==
--- NOTE | 2024-12-04 09:38 | CT ---
EXAMINATION TYPE: CT chest w con DATE OF EXAM: 12/04/2024 COMPARISON: 06/06/2024 and 09/28/2023 HISTORY: 64-year-old female C34.90 Hx lung ca, routine follow up TECHNIQUE: Contiguous axial scanning of the chest after the administration of 100 mL of Isovue 300. Coronal/sagittal reconstructions performed. CT DLP: 222.50mGycm. Automatic exposure control utilized for a dose reduction. FINDINGS: Heart is upper limits of normal in size without pericardial effusion. Aorta normal caliber with mild atherosclerotic arch calcifications and conventional arch vessel branc wilmer anatomy. There is a prominent 1.3 cm right hilar lymph node which appears increased. Otherwise, no thoracic ly mphadenopathy by CT size criteria. Some minimal patchy groundglass densities in the lower lungs with some scattered tree-in-bud opacity. [id number] emphysematous change. No consolidation or pleural effusion. Some scattered strandy scarring or atelectasis in the mid and lower lungs. Postsurgical changes right upper lobectomy. 5 mm peripheral right basilar pulmonary nodule previously measured 4 mm, axial image 48. 6 mm anteromedial right mid lung, axial image 22 is unchanged. 4 mm subpleural pulmonary nodule periphery of the left midlung unchanged, axial image 29. Visualized upper abdomen shows moderate atherosclerotic calcification in the abdominal aorta. Cholecy stectomy clips. Low-density nodule measuring 1.5 cm redemonstrated left adrenal gland most suggestive of a benign lip id rich adrenal adenoma. Tiny hilar splenule. Bones: Mild degenerative disc disease midthoracic spine. IMPRESSION: 1. COPD with [id number] emphysema and postsurgical change of right upper lobectomy. 2. There is a prominent right hilar lymph node measuring 1.3 cm which may be reactive/post inflammato ry. Close surveillance follow-up recommended. 3. A few pulmonary nodules up to 6 mm are also redemonstrated. The right basilar nodule measuring 5 m m is minimally larger from 4 mm previously. These should also be reassessed at follow-up. 4. Some minimal patchy groundglass and tree-in-bud opacities in the mid and lower lungs. Correlate fo r any respiratory symptoms that would suggest a bronchiolitis. 5. Stable 1.5 cm left adrenal adenoma. [facility], , 12/04/2024 9:35 AM
== END | disposition home or self-care (01) ==
LOC: RADCTMAIN 08:32
PROVIDERS: ATTEND Internal Medicine Critical Care Medicine
DX: C34.90 Malignant neoplasm of unspecified part of unspecified bronchus or lung (principal); D35.02 Benign neoplasm of left adrenal gland; J43.9 Emphysema, unspecified; J44.9 Chronic obstructive pulmonary disease, unspecified; R91.8 Other nonspecific abnormal finding of lung field
CPT/HCPCS: 71260; Q9967

== ENCOUNTER → 2025-02-18 | Outpatient (CLI) | payer MEDICARE ==
[2025-02-18 20:06] LABS: HCT 44.8 % (37.2-46.3); HGB 14.1 g/dL (12.0-15.0); MCH 29.1 pg (27.0-32.0); MCHC 31.5 g/dL (32.0-37.0); MCV 92.6 FL (80.0-97.0); Mean Platelet Volume 9.7 FL (9.5-12.2); NRBC Per 100 WBC 0 X 10*3/uL (0.00-0.01); Platelet Count 353 X 10*3/uL (140-440); RBC 4.84 X 10*6/uL (4.10-5.20); RDW 13.4 % (11.5-14.5); WBC 9.78 X 10*3/uL (4.50-10.00)
[2025-02-18 20:16] LABS: Blood Urea Nitrogen 22.4 mg/dL (9.0-27.0); Carbon Dioxide 26.2 mmol/L (21.6-31.8); Chloride 102 mmol/L (96-109); Potassium 4.1 mmol/L (3.5-5.5); Sodium 140 mmol/L (135-145)
== END | disposition home or self-care (01) ==
LOC: LABPAT 12:23
PROVIDERS: ATTEND Internal Medicine
DX: Z01.812 Encounter for preprocedural laboratory examination (principal); I70.212 Atherosclerosis of native arteries of extremities with intermittent claudication, left leg
CPT/HCPCS: 36415; 80051; 82565; 84520; 85027

== ENCOUNTER 2025-02-24 06:08 | Day surgery (SDC) | payer MEDICARE ==
[~2025-02-24 06:08] MED LIST changes: +ALPRAZolam 0.25 MG TAB PO PRN; -DEXAMETHASONE SOD PHOSPHATE 4 MG/ML 1 ML VIAL IV ONE; -HYDROmorphone 0.5 MG/0.5 ML SYRINGE IVP PRN; -ONDANSETRON 4 MG/2 ML VIAL IVP ONE
[2025-02-24] MEDS: EMPTY BAG 1 BAG with SODIUM CHLORIDE 0.9% 1,000 ML IV SCH (07:08)
[2025-02-24] MEDS: IV FLUID CONTINUATION 1,000 ML IV ONE (07:11)
[2025-02-24] MEDS: HEPARIN SODIUM,PORCINE 10,000 UNIT in SODIUM CHLORIDE 0.9% 1,000 ML IRRIGATION ONE (07:25)
[2025-02-24] MEDS: HEPARIN SODIUM,PORCINE (1 ML) 2,500 UNIT in SODIUM CHLORIDE 0.9% 250 ML IRRIGATION ONE (07:25)
[2025-02-24] MEDS: fentaNYL (PF) 50 MCG/ML 2 ML AMP IVP ONE (07:37)
[2025-02-24] MEDS: MIDAZOLAM 2 MG/2 ML VIAL IVP ONE (07:37)
[2025-02-24] MEDS: LIDOCAINE 1% INJ 10MG/ML (20 ML MDV) SQ ONE (07:39)
[2025-02-24] MEDS: HEPARIN SODIUM 1,000 UN/ML (10ML VL) IV ONE (08:02)
[2025-02-24] MEDS: CLOPIDOGREL 75 MG TAB PO ONE (08:06)
[2025-02-24] MEDS: IOPAMIDOL-370 100ML BTL INJ ONE (08:50)
--- NOTE | 2025-02-24 09:15 | P.PCN ---
Description of Procedure: PROCEDURES PERFORMED: Abdominal angiography with bilateral runoff, SHUTTLE VAN DRIVER and stent of the left common iliac artery with a 8.0 x 57mm Visipro stent, IVUS left common iliac artery, ultrasound-guided arterial axis INDICATION: Abnormal CHAKA, PAD, sanjana class 3 claudication CONSENT:I have discussed the risks, benefits and alternative therapies for the above-mentioned procedure and for both sedation/analgesia as well as necessary blood product administration, if indicated, as they pertain to this patient. The patient has indicated understanding and acceptance of the risks and procedures discussed. PROCEDURE: After the risks, benefits and alternatives of the above mentioned procedure explained in detail with the patient, informed consent was obtained. Patient was taken to the catheterization lab and prepped and draped in usual fashion. 1% lidocaine was used to anesthetize the right femoral area. A 6- Colombian sheath was placed in the right femoral artery using modified Seldinger technique. A 5-Colombian pigtail catheter was inserted to the abdominal aorta and DSA imaging was obtained. Patient tolerated the diagnostic portion well. Next, the decision was made to perform intervention of the left common iliac. 1% lidocaine was used to anesthetize the left femoral area. A 7 Colombian Brite tip sheath was placed in the left common femoral artery using ultrasound guidance. IV heparin was given. Initial attempts were made at coming antegrade which were unsuccessful with a rim catheter. Next from a retrograde approach from the left femoral sheath, a 0.035 wire and a glide catheter were advanced and able to cross the majority of the lesion. Eventually needed a 0.018 Asati wire was used to cross the lesion. Balloon angioplasty was performed with a 6.0 mm balloon. Next intravascular ultrasound was performed which showed reference vessel 7.5 to 8 mm. Next a 8.0 x 57 mm VISI Pro stent was placed at the origin of the left common iliac artery. Final angiograms were performed. Repeat intravascular ultrasound showed well-expanded stent with no dissection pre intervention there was 100% stenosis with no antegrade flow. Post intervention there was <10% stenosis and uninhibited flow. A right and left femoral angiogram was performed and anatomoy was suitable for closure. A 6Fr Angioseal was placed in the right femoral artery with hemostasis achieved and an 8 [place]ian Angio-Seal was placed in the left femoral artery and hemostasis was achieved.. The patient tolerated the procedure well. Patient was transported back to the post catheterization holding area in stable condition. Conscious Sedation: Patient was monitored under the direct supervision of vision of myself for conscious sedation using Versed and fentanyl for a total duration of 69 minutes HEMODYNAMICS: Aorta: 128/72 Abdominal aorta: The abdominal aorta has mild calcifcation. Renal arteries are patent. There is no significant dissection or aneurysm. There is no significant stenosis. Right lower extremity: Right common iliac artery: There is no significant stenosis. Right external iliac artery: There is no significant stenosis. Right internal iliac artery: There is no significant stenosis. Right common femoral artery: There is no significant stenosis. Right profunda: There is no significant stenosis. Right SFA: There is no significant stenosis. Right popliteal artery: There is no significant stenosis. Right tibioperoneal trunk: There is no significant stenosis. Right anterior tibial artery: There is no significant stenosis. Right posterior tibial artery: There is no significant stenosis. Right peroneal artery: There is no significant stenosis. Left lower extremity: Left common iliac artery: There is 100% proximal stenosis. Left external iliac artery: There is no significant stenosis. Left internal iliac artery: There is no significant stenosis. Left common femoral artery: There is no significant stenosis. Left profunda: There is no significant stenosis. Left SFA: There is no significant stenosis. Left popliteal artery: There is no significant stenosis. Left tibioperoneal trunk: There is no significant stenosis. Left anterior tibial artery: There is no significant stenosis. Left posterior tibial artery: There is no significant stenosis. Left peroneal artery: There is no significant stenosis. FINAL IMPRESSION: 1. Peripheral arterial disease as described above with 100% left common iliac stenosis and otherwise three-vessel runoff and no other significant stenosis. 2. Status post SHUTTLE VAN DRIVER and stent of the left common iliac artery with a 8.0 x 57mm Visipro stent PLAN: 1. Aggressive risk factor modification per most recent ACC/AHA guidelines. 2. Continue aspirin and Plavix for 3 months.
[2025-02-24] MEDS ORDERED: NALOXONE 0.4 MG/ML 1 ML VIAL IVP PRN (09:22)
--- NOTE | 2025-02-24 10:19 | IR ---
EXAMINATION TYPE: IR stent intravas non coronary DATE OF EXAM: 02/24/2025 10:12 AM COMPARISON: Pre Operative Images if available both CT/MRI or plain film CLINICAL INDICATION: Female, 65 years old with history of left leg pain, 21.9min fluoro, [id number] ; TECHNIQUE: IR stent intravas non coronary, multiple fluoroscopic images provided for procedure. DAP: [id number] FINDINGS: IMPRESSION: 1. Report was generated for administrative purposes only. 2. Please see the operative/procedural note for further details. [facility], , 02/24/2025 10:17 AM
[2025-02-24] MEDS: HYDROcodone/APAP 10-325MG 1 EACH TAB PO PRN (16:40)
[2025-02-24 20:01] VITALS: RESP 16
[2025-02-24] MEDS: SYMBICORT 160-4.5 MCG INHALER INHALATION SCH (20:39)
[2025-02-25 04:55] LABS: Basophils % (A) 0 %; Eosinophils # (A) 0.3 k/uL (0-0.7); Eosinophils % (A) 3 %; HCT 37.2 % (34.0-46.0); HGB 12.1 gm/dL (11.4-16.0); Lymphocytes # (A) 2.1 k/uL (1.0-4.8); Lymphocytes % (A) 22 %; MCH 29.7 pg (25.0-35.0); MCHC 32.4 g/dL (31.0-37.0); MCV 91.8 fL (80.0-100.0); Monocytes # (A) 0.5 k/uL (0-1.0); Monocytes % (A) 6 %; Neutrophils # (A) 6.7 k/uL (1.3-7.7); Neutrophils % (A) 68 %; Platelet Count 268 k/uL (150-450); RBC 4.06 m/uL (3.80-5.40); RDW 13.6 % (11.5-15.5); WBC 9.8 k/uL (3.8-10.6)
[2025-02-25 05:16] LABS: African American GFR (CKD) >90 (>60 ml/min/1.73 sqM); Anion Gap 4 mmol/L; Blood Urea Nitrogen 17 mg/dL (7-17); Calcium 8.8 mg/dL (8.4-10.2); Carbon Dioxide 29 mmol/L (22-30); Chloride 104 mmol/L (98-107); Glucose 105 mg/dL (74-99); Non-African American GFR(CKD) >90 (>60 ml/min/1.73 sqM); Potassium 3.8 mmol/L (3.5-5.1); Sodium 137 mmol/L (137-145)
--- NOTE | 2025-02-25 07:30 | P.DS ---
Providers Attending physician: Todd Cooley DO Primary care physician: Raza Acmh Hospital Course: Patient is a pleasant 65-year-old female with history of PAD by ultrasound who presented for angiogram. Patient underwent abdominal angiogram with runoff 02/24/2025 which showed 100% left common iliac stenosis and otherwise mild disease. Patient therefore underwent balloon angioplasty and stent placement of the left common iliac trauma by femoral approach without any complications. Patient was seen/1 with no significant issues, no chest pain, no shortness of breath and bilateral femoral 2 out of 4 pulses with no hematoma. Patient will be discharged home on aspirin and Plavix for 3 months with outpatient follow-up in 1 week. Plan - Discharge Summary Discharge Rx Participant: No New Discharge Prescriptions: New Clopidogrel [Plavix] 75 mg PO DAILY #90 tab No Action hydroCHLOROthiazide 25 mg PO DAILY Atorvastatin [Lipitor] 40 mg PO DAILY DULoxetine HCL [Cymbalta] 60 mg PO DAILY Ubidecarenone [Co Q-10] 200 mg PO DAILY Aspirin [[place] Aspirin EC] 81 mg PO DAILY Fluticasone/Umeclidin/Vilanter [Trelegy Ellipta 100-62.5-25] 1 puff INHALATION RT-DAILY Cholecalciferol [Vitamin D3 (25 Mcg = 1000 Iu)] 50 mcg PO DAILY Hydrocodone/Acetaminophen [Hydrocodone/Acetaminophen 10-300 mg] 1 tab PO TID PRN PRN Reason: Pain Discharge Medication List hydroCHLOROthiazide 25 mg PO DAILY 01/19/23 [History] Aspirin [[place] Aspirin EC] 81 mg PO DAILY 09/27/23 [History] Atorvastatin [Lipitor] 40 mg PO DAILY 09/27/23 [History] DULoxetine HCL [Cymbalta] 60 mg PO DAILY 09/27/23 [History] Cholecalciferol [Vitamin D3 (25 Mcg = 1000 Iu)] 50 mcg PO DAILY 10/24/23 [History] Fluticasone/Umeclidin/Vilanter [Trelegy Ellipta 100-62.5-25] 1 puff INHALATION RT-DAILY 10/24/23 [History] Ubidecarenone [Co Q-10] 200 mg PO DAILY 10/24/23 [History] Hydrocodone/Acetaminophen [Hydrocodone/Acetaminophen 10-300 mg] 1 tab PO TID PRN 11/09/23 [History] Clopidogrel [Plavix] 75 mg PO DAILY #90 tab 02/25/25 [Rx] Follow up Appointment(s)/Referral(s): Shant Riley MD [STAFF PHYSICIAN] - 03/04/25 4:00 pm (FOLLOW UP APPOINTMENT ([facility]) HAS BEEN MADE. )
[2025-02-25 07:44] VITALS: BP 112/71; PULSE 71; TEMP 97.9
[2025-02-25] MEDS: CLOPIDOGREL 75 MG TAB PO SCH (07:53)
[2025-02-25] MEDS: DULoxetine HCL 60 MG CAPSULE.DR PO SCH (07:53)
[2025-02-25] MEDS: ATORVASTATIN 40 MG TAB PO SCH (07:53)
[2025-02-25] MEDS: CHOLECALCIFEROL 25 MCG (1000 IU) TABLET PO SCH (07:53)
[2025-02-25] MEDS: ASPIRIN 81 MG PO SCH (07:54)
[2025-02-25] MEDS: hydroCHLOROthiazide 25 MG TAB PO SCH (07:54)
[2025-02-25] MEDS ORDERED: TIOTROPIUM 2.5 MCG INHALER INHALATION SCH (08:00)
[2025-02-25] MEDS ORDERED: NON FORMULARY DRUG (Ubidecarenone [Co Q-10] 300 MG Capsule) PO SCH (09:00)
== END 2025-02-25 08:29 | disposition home or self-care (01) ==
LOC: CATHCVL 06:08 → 6NMEDSUR 08:50 → CATHCVL 02-25 08:29
PROVIDERS: ATTEND Internal Medicine
DX: I73.9 Peripheral vascular disease, unspecified (principal); C34.90 Malignant neoplasm of unspecified part of unspecified bronchus or lung; I10 Essential (primary) hypertension; E78.5 Hyperlipidemia, unspecified; Z72.0 Tobacco use; Z79.02 Long term (current) use of antithrombotics/antiplatelets; Z79.899 Other long term (current) drug therapy
CPT/HCPCS: 94640; 37221; 75625; 75716; 37252; 80048; 85025; 99152; 99153; C1769 ×4; C1760; C1894; C1725; C1753; C1876; J2250; J1644 ×3; J2003; J3010; Q9967; 93005

== ENCOUNTER → 2025-03-31 | Outpatient (CLI) | payer MEDICARE ==
[2025-03-31 10:41] LABS: Basophils # (A) 0.07 10*3/uL (0.00-0.10); Basophils % (A) 0.9 %; Eosinophils % (A) 5.3 %; HCT 40.1 % (37.2-46.3); HGB 13.2 g/dL (12.0-15.0); Lymphocytes # (A) 2.59 10*3/uL (0.90-5.00); Lymphocytes % (A) 34.2 %; MCH 29.9 pg (27.0-32.0); MCHC 32.9 g/dL (32.0-37.0); MCV 90.9 fL (80.0-97.0); Mean Platelet Volume 9.2 fL (9.5-12.2); Monocytes # (A) 0.52 10*3/uL (0.20-1.00); Monocytes % (A) 6.9 %; Neutrophils # (A) 3.96 10*3/uL (1.80-7.70); Neutrophils % (A) 52.3 %; Platelet Count 301 10*3/uL (140-440); RBC 4.41 10*6/uL (4.10-5.20); RDW 13.4 % (11.5-14.5); WBC 7.57 10*3/uL (4.50-10.00)
[2025-03-31 11:00] LABS: ALT 17 U/L (4-34); AST 24 U/L (14-36); African American GFR (CKD) >90 (>60 ml/min/1.73 sqM); Albumin 4.2 g/dL (3.5-5.0); Alkaline Phosphatase 86 U/L (38-126); Anion Gap 9 mmol/L; Blood Urea Nitrogen 22 mg/dL (7-17); Calcium 9.9 mg/dL (8.4-10.2); Carbon Dioxide 31 mmol/L (22-30); Chloride 100 mmol/L (98-107); Glucose 97 mg/dL (74-99); Non-African American GFR(CKD) >90 (>60 ml/min/1.73 sqM); Potassium 4.2 mmol/L (3.5-5.1); Sodium 140 mmol/L (137-145); Total Bilirubin 0.4 mg/dL (0.2-1.3)
--- NOTE | 2025-03-31 15:09 | BD ---
EXAMINATION TYPE: Axial Bone Density DATE OF EXAM: 03/31/2025 CLINICAL HISTORY: 65 years old Female. ICD-10 CODE: M85.80 Z78.0 , Additional History: Height: 65.5 in Weight: 148 lbs FRAX RISK QUESTIONS: Secondary Osteoporosis: 3. Menopause before 45: age 33Current RISK FACTORS EXAM MEASUREMENTS: Bone mineral densitometry was performed using the [employer] System. Bone mineral density about the R hip (g/cm2): 0.769 Bone mineral density about the L hip (g/cm2): 0.748 T Score values are as follows: -----R Neck: -1.7 -----L Neck: -1.2 -----R Total: -1.9 -----L Total: -2.1 Z Score values are as follows: -----R Neck: -0.3 -----L Neck: 0.2 -----R Total: -0.8 -----L Total: -0.9 Bone mineral density has: Decreased -7.3% since study of: 01/27/2023 Bone mineral density about the R Wrist (g/cm2): 0.619 T Score values are as follows: -----Dist. R+U: -1.4 -----Prox. R+U: -0.1 -----Radius total: -0.9 Z Score values are as follows: -----Dist. R+U: 0.0 -----Prox. R+U: 1.3 -----Radius total: 0.4 Bone mineral density has: Decreased -5.4% since study of: 02/23/2023 FRAX%s: The graph provided illustrates a 9.3% chance for a major osteoporotic fx and a 1.2% chance fo r the hips probability for fx in 10 years time. IMPRESSION: Osteopenia (T Score between -2.5 and -1). There is slightly increased risk of fracture and the patient may be considered for treatment. Re-Screen 2-5 years. NOTE: T-SCORE=SD OF THE YOUNG ADULT MEAN. [facility], , 03/31/2025 3:06 PM
[2025-03-31 18:26] LABS: Chol/HDL Ratio 2.96 Ratio; LDL Cholesterol,Calculated 77.5 mg/dL (0.0-131.0)
== END | disposition home or self-care (01) ==
LOC: RADBDWWP 09:58
PROVIDERS: ATTEND Family Medicine
DX: Z00.00 Encounter for general adult medical examination without abnormal findings (principal); M85.89 Other specified disorders of bone density and structure, multiple sites; J44.9 Chronic obstructive pulmonary disease, unspecified; M51.35 Other intervertebral disc degeneration, thoracolumbar region; I10 Essential (primary) hypertension; E55.9 Vitamin D deficiency, unspecified; Z78.0 Asymptomatic menopausal state; R11.0 Nausea; Z90.2 Acquired absence of lung [part of]; Z79.891 Long term (current) use of opiate analgesic
CPT/HCPCS: 77080; 80053; 80061; 82306; 84443; 85025

== ENCOUNTER → 2025-06-09 | Outpatient (CLI) | payer MEDICARE ==
[2025-06-09 11:44] LABS: African American GFR (CKD) >90 (>60 ml/min/1.73 sqM); Blood Urea Nitrogen 26 mg/dL (7-17); Non-African American GFR(CKD) >90 (>60 ml/min/1.73 sqM)
--- NOTE | 2025-06-15 20:55 | CT ---
EXAMINATION TYPE: CT chest w con DATE OF EXAM: 06/09/2025 12:11 PM COMPARISON: 12/04/2024 . 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 Sagittal and coronal reformats were created for review. MIP was performed on a separate workstation. Contrast used:100 mL of Isovue [address] DLP: 194.6 mGycm, Automated exposure control for dose reduction was used. FINDINGS: Heart normal size without pericardial effusion. LAD and RCA coronary artery calcifications are noted. Aorta normal caliber with mild atherosclerotic arch calcifications and conventional arch vessel branc wilmer anatomy. Prominent 1.2 cm right hilar lymph node relatively unchanged from 1.3 cm, previously. No enlarging me diastinal, hilar, or axillary adenopathy seen. Postsurgical change of right upper lobectomy redemonstrated. Background moderate emphysematous change. 6 mm medial right upper lung pulmonary nodule, axial image 21 is unchanged. 5 mm right basilar pulmonary nodule is unchanged. Other scattered small pulmonary nodules such as 4 mm subpleural pulmonary nodule left base are also a ll unchanged. Groundglass and tree-in-bud opacities particularly at the right base have increased. No pleural effusion. In the visualized upper abdomen, a 1.5 cm left adrenal nodule is unchanged. Tiny hilar splenule. Chol ecystectomy clips. Moderate atherosclerotic calcifications abdominal aorta. Bones: Mild degenerative disc disease mid to lower thoracic spine. No osseous destructive process. IMPRESSION: 1. COPD with moderate emphysema; patient status post right upper lobectomy. 2. A prominent 1.2 cm right hilar lymph node and a few scattered pulmonary nodules measuring up to 6 mm remain unchanged. A 1.5 cm left adrenal nodule is also unchanged. 3. No convincing evidence for disease progression. [facility], , 06/15/2025 8:53 PM
== END | disposition home or self-care (01) ==
LOC: RADCTMAIN 10:44
PROVIDERS: ATTEND Internal Medicine Critical Care Medicine
DX: C34.90 Malignant neoplasm of unspecified part of unspecified bronchus or lung (principal); J43.9 Emphysema, unspecified; R91.8 Other nonspecific abnormal finding of lung field
CPT/HCPCS: 82565; 84520; 71260; 36415; Q9967